=== PATIENT | female | born 1995 | race Caucasian/White ===

== ENCOUNTER → 2018-05-07 15:24 | Outpatient (REF) | payer SELFPAY | LOC: OM 15:24 | PROVIDERS: PCP Nurse Practitioner; Visit Provider Nurse Practitioner Family | DX: Z23 Encounter for immunization (principal) ==

== ENCOUNTER → 2018-05-21 15:32 | Outpatient (REF) | payer OTHER, MEDICAID, SELFPAY | LOC: LBN 15:32 | PROVIDERS: PCP Nurse Practitioner; Visit Provider Nurse Practitioner | DX: J02.9 Acute pharyngitis, unspecified (principal) | CPT/HCPCS: 87070 ==

== ENCOUNTER 2018-06-17 09:54 | Outpatient (REF) | payer OTHER, MEDICAID, SELFPAY | END 2018-06-17 10:14 | LOC: LBN 09:54 | PROVIDERS: PCP Nurse Practitioner; Visit Provider Nurse Practitioner Women's Health | DX: R31.9 Hematuria, unspecified (principal) | CPT/HCPCS: 87086 ==

== ENCOUNTER 2018-08-22 01:38 | Emergency (ER) | payer OTHER, MEDICAID, SELFPAY ==
[2018-08-22 01:44] VITALS: BP 126/89; PULSE 144; RESP 18; TEMP 38; O2SAT 99
--- NOTE | 2018-08-22 01:57 | W.ED.GENAD ---
Discharge Plan Disposition Patient Disposition: HOME Condition: Good Discharge Details Chief Complaint: Headache Clinical Impression: Throbbing headache Primary Care Provider: Teri Gomez ED Provider: Sebastien Wood Home Meds and New Rx's Prescriptions: Continue albuterol sulfate 8.5 GM HFA aerosol inhaler 2 puff Inhalation Q4H PRN Qty: 1 RF: 1 fluticasone [Flovent HFA] 12 GM HFA aerosol inhaler 110 mcg Inhalation BID Qty: 1 RF: 1 norelgestromin-ethin.estradiol [Xulane] 1 EACH patch weekly 1 ea Transdermal weekly Qty: 9 RF: 4 Discharge Instructions Instructions: General Headache (ED) Additional Instructions: Rest over the weekend and stay hydrated. May use Tylenol or Motrin for residual headache. Low-grade fever here so may have mild viral illness. Do not think you have meningitis but if you develop worsening headache, neck pain/stiffness, persistent fever, neurologic changes please return to ED. Follow-up with primary care next week if continued problems with headaches. Referrals: Teri Gomez, PRINTED CIRCUIT BOARD DESIGNER [Primary Care Provider] - Medical Decision Making Patient with frontal pounding headache for the last 3 days. Gradually worse over time. Low-grade fever here but no real viral symptoms otherwise. Has no neck pain or meningeal signs. Is normal neurologically. She has no sinus tenderness and really has no nasal congestion. I do not think this is sinus headache. Seems more like migrainous in nature. Will place IV and give Toradol and Reglan and reevaluate. I am not concerned for meningitis or subarachnoid hemorrhage. test negative. Patient had IV placed received fluids and medications. On reevaluation her headache is essentially gone. The pounding sensations resolved. She feels much better. Heart rate is come down. She has known tachycardia at rest in the past. Patient be discharged home at this time. HPI General Mode of arrival: ambulatory. Date/Time Provider Initiated Documentation: 08/22/18 01:57. Limitations to Documentation: no limitations. Information obtained by: patient and old records reviewed. HPI Narrative: Patient presents to ED with complaint of frontal/retro-orbital pounding headache for the last 3 days. Position changes make the headache worse. There is mild photophobia. She has nausea but no vomiting. She has no real sinus symptoms. She had no fever, cough, sore throat, earache that she is aware of. She had headaches when she was younger but not recently. She has no neurologic symptoms otherwise. Related Data Home Medications Medication Instructions Recorded Confirmed albuterol sulfate 2 puff INHALATION Q4H PRN #1 12/21/13 08/22/18 inhaler fluticasone [Flovent HFA] 110 mcg INHALATION BID #1 inhaler 12/21/13 08/22/18 norelgestromin-ethin.estradiol 1 ea TRANSDERMAL weekly #9 patch 08/29/17 08/22/18 [Xulane] Previous Rx's Medication Instructions Recorded norelgestromin-ethin.estradiol 1 ea TRANSDERMAL weekly #9 patch 08/29/17 [Xulane] Allergies Allergy/AdvReac Type Severity Reaction Status Date / Time No Known Drug Allergies Allergy Unverified 08/22/18 01:51 General Stated Complaint: Headache DIANE: 3 Review of Systems Constitutional Denies chills, Denies fatigue, Denies fever(s), Reports headache(s), Denies malaise and Denies weakness Eyes Reports blurry vision (mild and intermittent left eye), Denies diplopia, Denies eye discharge, Denies loss of vision, Denies eye pain and Reports photophobia ENT Denies vertigo, Denies dizziness, Denies otalgia, Denies facial pain, Reports headache(s), Denies hoarseness, Denies nasal congestion, Denies nasal discharge, Denies neck pain, Denies sinus pain, Reports sinus pressure and Denies sore throat Cardiovascular Denies chest pain, Denies syncope, Reports rapid heart rate, Denies edema, Denies lightheadedness and Denies dyspnea Respiratory Denies chest congestion, Denies cough and Denies dyspnea Gastrointestinal Denies abdominal pain, Denies diarrhea, Reports nausea and Denies vomiting Musculoskeletal Denies abnormal gait, Denies back pain, Denies myalgias, Denies arthralgias, Denies neck pain, Denies numbness and Denies tingling Integumentary/Breasts Denies rash Neurologic Denies abnormal speech, Denies abnormal gait, Denies confusion, Denies vertigo, Denies dizziness, Denies syncope, Reports headache(s), Denies focal weakness, Denies loss of vision, Denies numbness, Denies sensory deficit, Denies tingling and Denies weakness Psychiatric Denies confusion Endocrine Denies fatigue PFSH Family History Mother No problems noted. Father No problems noted. Medical History Tachycardia with heart rate 121-140 beats per minute (Chronic) Exposure to chlamydia (~04/2016) HSV-1 (herpes simplex virus 1) infection Social History Smoking/Tobacco Use Status: Former Tobacco Use alcohol intake: former substance use type: does not use Surgical History S/P shoulder surgery (Inactive) section (03/12/17) Tonsillectomy and adenoidectomy (~2002) Female Reproductive History Menstrual control method: patch Exam Const General: cooperative, healthy appearing and uncomfortable Orientation: alert and oriented x3 HENMT Head: normal to inspection, normocephalic and atraumatic Ears: external ears normal and TM's normal bilaterally Face and sinus: normal facial exam and sinuses nontender Mouth: oropharynx normal and moist mucous membranes Throat: posterior oropharynx normal Eyes Conjunctivae: conjunctivae normal Pupils: PERRL EOM: EOM intact bilaterally Neck Neck: normal visual inspection, full ROM, no lymphadenopathy, no meningeal signs, trachea midline and supple Resp Effort & Inspection: normal respiratory effort Auscultation: clear to auscultation bilaterally Cardio Rate: tachycardic Rhythm: regular rhythm Heart Sounds: S1 normal and S2 normal Skin General skin exam: no rashes or lesions noted Neuro General: alert, oriented x3, gait normal, no focal motor deficits and CN's II-XI intact bilaterally Cognition: normal cognition Speech: speech normal Gait: normal gait Sensory Exam: no sensory deficits noted Extrem General: normal to inspection and no clubbing, cyanosis or edema Course Vital Signs Temperature 100.4 F H 08/22/18 01:44 Pulse 144 H 08/22/18 01:44 Respiratory Rate 18 08/22/18 01:44 Blood Pressure 126/89 08/22/18 01:44 Pulse Oximetry 99 08/22/18 01:44 Temperature 100.4 F H 08/22/18 01:44 Temperature Source Temporal Artery Scan 08/22/18 01:44 Pulse 144 H 08/22/18 01:44 Respiratory Rate 18 08/22/18 01:44 Respiratory Effort Non-Labored 08/22/18 01:48 Blood Pressure 126/89 08/22/18 01:44 Blood Pressure Position Sitting 08/22/18 01:44 Pulse Oximetry 99 08/22/18 01:44 Oxygen Delivery Method Room Air 08/22/18 01:44 Oxygen Flow Rate 0 08/22/18 01:44 Pain Level 6 08/22/18 01:48
--- NOTE | 2018-08-22 02:05 | ED.GENADUL_ITS ---
Discharge Plan Disposition Patient Disposition: HOME Condition: Good Discharge Details Chief Complaint: Headache Clinical Impression: Throbbing headache Primary Care Provider: Teri Gomez ED Provider: Sebastien Wood Home Meds and New Rx's Prescriptions: Continue albuterol sulfate 8.5 GM HFA aerosol inhaler 2 puff Inhalation Q4H PRN Qty: 1 RF: 1 fluticasone [Flovent HFA] 12 GM HFA aerosol inhaler 110 mcg Inhalation BID Qty: 1 RF: 1 norelgestromin-ethin.estradiol [Xulane] 1 EACH patch weekly 1 ea Transdermal weekly Qty: 9 RF: 4 Discharge Instructions Instructions: General Headache (ED) Additional Instructions: Rest over the weekend and stay hydrated. May use Tylenol or Motrin for residual headache. Low-grade fever here so may have mild viral illness. Do not think you have meningitis but if you develop worsening headache, neck pain/ stiffness, persistent fever, neurologic changes please return to ED. Follow-up with primary care next week if continued problems with headaches. Referrals: Teri Gomez, TERRAZZO HELPER [Primary Care Provider] - Medical Decision Making Patient with frontal pounding headache for the last 3 days. Gradually worse over time. Low-grade fever here but no real viral symptoms otherwise. Has no neck pain or meningeal signs. Is normal neurologically. She has no sinus tenderness and really has no nasal congestion. I do not think this is sinus headache. Seems more like migrainous in nature. Will place IV and give Toradol and Reglan and reevaluate. I am not concerned for meningitis or subarachnoid hemorrhage. test negative. Patient had IV placed received fluids and medications. On reevaluation her headache is essentially gone. The pounding sensations resolved. She feels much better. Heart rate is come down. She has known tachycardia at rest in the past. Patient be discharged home at this time. HPI General Mode of arrival: ambulatory . Date/Time Provider Initiated Documentation: 08/22/18 01:57 . Limitations to Documentation: no limitations . Information obtained by: patient and old records reviewed . HPI Narrative: Patient presents to ED with complaint of frontal/retro-orbital pounding headache for the last 3 days. Position changes make the headache worse. There is mild photophobia. She has nausea but no vomiting. She has no real sinus symptoms. She had no fever, cough, sore throat, earache that she is aware of. She had headaches when she was younger but not recently. She has no neurologic symptoms otherwise. Related Data Home Medications Medication Instructions Recorded Confirmed albuterol sulfate 2 puff INHALATION Q4H PRN #1 12/21/13 08/22/18 inhaler fluticasone [Flovent HFA] 110 mcg INHALATION BID #1 inhaler 12/21/13 08/22/18 norelgestromin-ethin.estradiol 1 ea TRANSDERMAL weekly #9 patch 08/29/17 [Xulane] Previous Rx's Medication Instructions Recorded norelgestromin-ethin.estradiol 1 ea TRANSDERMAL weekly #9 patch 08/29/17 [Xulane] Allergies Allergy/AdvReac Type Severity Reaction Status Date / Time No Known Drug Allergies Allergy Unverified 08/22/18 01:51 General Stated Complaint: Headache DIANE: 3 Review of Systems Constitutional Denies chills, Denies fatigue, Denies fever(s), Reports headache(s), Denies malaise and Denies weakness Eyes Reports blurry vision (mild and intermittent left eye), Denies diplopia, Denies eye discharge, Denies loss of vision, Denies eye pain and Reports photophobia ENT Denies vertigo, Denies dizziness, Denies otalgia, Denies facial pain, Reports headache(s), Denies hoarseness, Denies nasal congestion, Denies nasal discharge , Denies neck pain, Denies sinus pain, Reports sinus pressure and Denies sore throat Cardiovascular Denies chest pain, Denies syncope, Reports rapid heart rate, Denies edema, Denies lightheadedness and Denies dyspnea Respiratory Denies chest congestion, Denies cough and Denies dyspnea Gastrointestinal Denies abdominal pain, Denies diarrhea, Reports nausea and Denies vomiting Musculoskeletal Denies abnormal gait, Denies back pain, Denies myalgias, Denies arthralgias, Denies neck pain, Denies numbness and Denies tingling Integumentary/Breasts Denies rash Neurologic Denies abnormal speech, Denies abnormal gait, Denies confusion, Denies vertigo, Denies dizziness, Denies syncope, Reports headache(s), Denies focal weakness, Denies loss of vision, Denies numbness, Denies sensory deficit, Denies tingling and Denies weakness Psychiatric Denies confusion Endocrine Denies fatigue PFSH Family History Mother No problems noted. Father No problems noted. Medical History Tachycardia with heart rate 121-140 beats per minute (Chronic) Exposure to chlamydia (~04/2016) HSV-1 (herpes simplex virus 1) infection Social History Smoking/Tobacco Use Status: Former Tobacco Use alcohol intake: former substance use type: does not use Surgical History S/P shoulder surgery (Inactive) section (03/12/17) Tonsillectomy and adenoidectomy (~2002) Female Reproductive History Menstrual control method: patch Exam Const General: cooperative, healthy appearing and uncomfortable Orientation: alert and oriented x3 HENMT Head: normal to inspection, normocephalic and atraumatic Ears: external ears normal and TM's normal bilaterally Face and sinus: normal facial exam and sinuses nontender Mouth: oropharynx normal and moist mucous membranes Throat: posterior oropharynx normal Eyes Conjunctivae: conjunctivae normal Pupils: PERRL EOM: EOM intact bilaterally Neck Neck: normal visual inspection, full ROM, no lymphadenopathy, no meningeal signs , trachea midline and supple Resp Effort & Inspection: normal respiratory effort Auscultation: clear to auscultation bilaterally Cardio Rate: tachycardic Rhythm: regular rhythm Heart Sounds: S1 normal and S2 normal Skin General skin exam: no rashes or lesions noted Neuro General: alert, oriented x3, gait normal, no focal motor deficits and CN's II- XI intact bilaterally Cognition: normal cognition Speech: speech normal Gait: normal gait Sensory Exam: no sensory deficits noted Extrem General: normal to inspection and no clubbing, cyanosis or edema Course Vital Signs Temperature 100.4 F H 08/22/18 01:44 Pulse 144 H 08/22/18 01:44 Respiratory Rate 18 08/22/18 01:44 Blood Pressure 126/89 08/22/18 01:44 Pulse Oximetry 99 08/22/18 01:44 Temperature 100.4 F H 08/22/18 01:44 Temperature Source Temporal Artery Scan 08/22/18 01:44 Pulse 144 H 08/22/18 01:44 Respiratory Rate 18 08/22/18 01:44 Respiratory Effort Non-Labored 08/22/18 01:48 Blood Pressure 126/89 08/22/18 01:44 Blood Pressure Position Sitting 08/22/18 01:44 Pulse Oximetry 99 08/22/18 01:44 Oxygen Delivery Method Room Air 08/22/18 01:44 Oxygen Flow Rate 0 08/22/18 01:44 Pain Level 6 08/22/18 01:48
[2018-08-22] MEDS: Lactated Ringers 1,000 ML 1000 ML IV (02:31)
[2018-08-22] MEDS: Ketorolac 15 MG/ML VIAL IVP (02:31)
[2018-08-22] MEDS: Metoclopramide 10 MG/2 ML VIAL IVP (02:32)
[2018-08-22 02:47] VITALS: BP 121/67; PULSE 106; RESP 14; TEMP 37.6; O2SAT 98
[2018-08-22 03:16] VITALS: BP 121/67; PULSE 106; RESP 14; TEMP 37.6; O2SAT 98
== END 2018-08-22 03:18 | disposition home or self-care (01) ==
LOC: ER 03:17
PROVIDERS: Emergency Provider Emergency Medicine; PCP Nurse Practitioner
DX: R51 Headache (principal)
CPT/HCPCS: 81025; 96361; 96374; 96375; 99284; J1885; J2765

== ENCOUNTER 2019-02-04 11:02 | Emergency (ER) | payer OTHER, MEDICAID, SELFPAY ==
[2019-02-04] VITALS (36 sets, daily range): BP systolic 102–119; BP diastolic 50–70; PULSE 113–142; RESP 13–52; TEMP 37.2; O2SAT 98–100
--- NOTE | 2019-02-04 11:22 | DI.RAD_ITS ---
SYMPTOM/DIAGNOSIS: CHEST PAIN, TACHYCARDIA PA AND LATERAL CHEST: The heart is normal in size. The lungs are clear. The mediastinal structures and pleura appear intact. CONCLUSION: Normal chest.
--- NOTE | 2019-02-04 11:26 | ED.GENADUL_ITS ---
Discharge Plan Disposition Patient Disposition: HOME Discharge Details Chief Complaint: Chest Pain Clinical Impression: Tachycardia Primary Care Provider: Teri Gomez ED Provider: Hollis Flores Home Meds and New Rx's Prescriptions: New metoprolol succinate 25 mg tablet extended release 24 hr 25 mg PO DAILY Qty: 30 RF: 0 Continued albuterol sulfate 8.5 GM HFA aerosol inhaler 2 puff Inhalation Q4H PRN Qty: 1 RF: 1 Flovent HFA 12 GM HFA aerosol inhaler 110 mcg Inhalation BID Qty: 1 RF: 1 Discharge Instructions Additional Instructions: Start metorprolol. Take 12.5mg (1/2 tablet) for 4 days and then continue 25mg daily as prescribed. Please avoid stimulants including caffeine. Please follow-up with cardiology. Call for an appointment to be reassessed in 2 weeks. Return to the ER immediately for any worsening or new concerning symptoms. Stand Alone Forms: Work Release Referrals: Teri Gomez, ASSISTANT PROFESSOR [employer] [Primary Care Provider] - Discharge Data Discharge Date/Time-TO BE ENTERED AT DEPARTURE: 02/04/19 15:10 Medical Decision Making <Maureen Pfeiffer DO - Last Filed: 02/05/19 08:22> Please see Dr. Hollis Flores's note for presentation, exam, and plan. Note was created by me initially but I did not evaluate or participate in the care of this patient. Care was transitioned to Dr. Flores during medical surge. <Hollis Flores MD - Last Filed: 02/04/19 15:00> 12:28 -- ED medical surge called due to volume and acuity. I reponded to ED to assist in care of patients. Ms. Potter is a 23yo with history of baseline elevated HR, anxiety and IBS here today with tachycardia elevated from baseline and as high as 170 earlier today. She has had associated symptoms of chest discomfort, shortness of breath, and lightheadedness with her tachycardia today. Currently tachycardic and normotensive. Saturating well with no active CP. ECG reviewed and interpreted by me: sinus tach 147 bpm, NC 106, nonspecific ST depression subtle laterally. No risk factors for ACS. Will check trop. Old ecg not immediately available for comparison. Consider PE. Low risk by wells. Ddimer sent. Consider other etiologies including electrolyte abnormality and hyperthyroidism. Patient mildly dehydrated and with recent loose stool - will give IVF bolus. -- Labs reviewed and mild hypokalemia noted at 3.3. Will give kdur 40meq. -- Labs reviewed including initial trop and ddimer. Neg. Patient reassessed and remains stable - tachycardia improved. No CP. Will check repeat ecg and delta trop. -- Delta trop neg. Repeat ecg reviewed and interpreted by me: sinus tach 119, improved from prior with no depressions. -- Patient reassessed: stable, feels better, no CP, tachycardia improved to baseline, normotensive. -- I called and spoke with Dr. Burgess (sole conditioner cardiology). I reviewed ED presentation and course. He reviewed past medical record from cardiology and prior cardiology testing. He recommended initiating treatment with metoprolol 12.5mg x 4 days and then continuing 25mg daily. He recommended outpatient follow-up in 2 weeks. HPI <Maureen Pfeiffer DO - Last Filed: 02/05/19 08:22> General Date/Time Provider Initiated Documentation: 02/04/19 11:10 . Related Data Home Medications Medication Instructions Recorded Confirmed Flovent HFA 110 mcg INHALATION BID #1 inhaler 12/21/13 02/04/19 albuterol sulfate 2 puff INHALATION Q4H PRN #1 12/21/13 02/04/19 inhaler metoprolol succinate 25 mg PO DAILY #30 tab 02/04/19 Previous Rx's Medication Instructions Recorded metoprolol succinate 25 mg PO DAILY #30 tab 02/04/19 Allergies Allergy/AdvReac Type Severity Reaction Status Date / Time No Known Drug Allergies Allergy Unverified 08/25/18 12:54 General Stated Complaint: Chest Pain DIANE: 2 <Hollis Flores MD - Last Filed: 02/04/19 15:00> General Mode of arrival: ambulatory . Limitations to Documentation: no limitations . Information obtained by: patient . HPI Narrative: 23yo f with history of baseline tachycardia, IBS, anxiety, here with chief complaint of elevated HR. Patient notes that baseline HR is 105-110's for years. She has been evaluated by cardiology and had significant diangostic testing that has not revealed cause and thought to be benign. She notes that today she woke up around 6am and noted her HR to be faster than usual. This has persisted all morning and wax and waned. It has been severe at times. Now improved. 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 She has had associated intermittent mild, sharp left parasternal chest discomfort at times and associated with elevated HR. Also some mild SOB and lightheadedness. Of note, she did have episode of loose stool last night and again this AM. No abdominal pain. No vomiting. No fever. General DIANE: 2 <Hollis Flores MD - Last Filed: 02/04/19 15:00> Review of Systems All systems reviewed & are unremarkable except as noted in HPI and below PFSH <Maureen Pfeiffer DO - Last Filed: 02/05/19 08:22> Medical History Tachycardia with heart rate 121-140 beats per minute (Chronic) Exposure to chlamydia (~04/2016) HSV-1 (herpes simplex virus 1) infection Surgical History S/P shoulder surgery (Inactive) section (03/12/17) Tonsillectomy and adenoidectomy (~2002) Family History Mother No problems noted. Father No problems noted. Social History Smoking/Tobacco Use Status: Former Tobacco Use Alcohol Intake: current Alcohol Intake frequency: a few times a month Drug use: Never Substance use type: does not use Do you feel safe at home: Yes Do you feel safe in your relationship?: Yes Female Reproductive History Menstrual control method: patch History History 1 Para Hx # Term Pregnancies 1 Multiple births Hx # Pregnancies Ectopic pregnancies AB induced Hx Number of Living Children AB spontaneous <Hollis Flores MD - Last Filed: 02/04/19 15:00> Const General: cooperative, anxious and not ill appearing Orientation: alert and awake HENMT Head: normocephalic Mouth: mucous membranes dry Throat: posterior oropharynx normal Eyes Conjunctivae: normal conjunctivae Sclera: normal sclerae Neck Neck: trachea midline and supple Resp Auscultation: clear to auscultation bilaterally, no rales, no rhonchi and no wheezes Cardio Jugular venous pressure: no JVD Rate: tachycardic Rhythm: regular rhythm GI Inspection: non-distended Palpation: soft, not firm, no guarding, no masses, not rigid and tender in the LUQ (mild); with no rebound tenderness Skin General skin exam: no rashes or lesions noted Neuro General: alert, awake, oriented x3 and tone normal Extrem General: no calf tenderness and no edema Psych Appearance: grossly normal Mental Status: mental status grossly normal Speech and Movement: speech and movement normal Course <Maureen Pfeiffer, DO - Last Filed: 02/05/19 08:22> Vital Signs Temperature 99.0 F 02/04/19 11:07 Pulse 142 H 02/04/19 11:07 Respiratory Rate 16 02/04/19 11:07 Blood Pressure 117/70 02/04/19 11:07 Pulse Oximetry 100 02/04/19 11:07 Temperature 99.0 F 02/04/19 11:07 Temperature Source Skin 02/04/19 11:07 Pulse 142 H 02/04/19 11:07 Respiratory Rate 16 02/04/19 11:07 Blood Pressure 117/70 02/04/19 11:07 Blood Pressure Position Sitting 02/04/19 11:07 Pulse Oximetry 100 02/04/19 11:07 Oxygen Delivery Method Room Air 02/04/19 11:07 Oxygen Flow Rate 0 02/04/19 11:07 Pain Level 5 02/04/19 11:07
[2019-02-04 11:58] LABS: Abs Immature Grans 0.02 k/cumm (0.0-0.09); Absolute Basophil Count 0.02 k/cumm (0.0-0.2); Absolute Eosinophil Count 0.05 k/cumm (0.0-0.7); Absolute Lymphocyte Count 1.16 k/cumm (1.2-3.4); Absolute Monocyte Count 0.35 k/cumm (0.11-0.7); Absolute Neutrophil Count 6.84 k/cumm (1.2-6.7); Basophils % 0.2; Eosinophils % 0.6; HCT 42.1 % (36.0-46.0); HGB 14.2 g/dL (12.0-15.5); Immature Grans % 0.2; Lymphocytes % 13.7; Mean Corp. HGB Concentration 33.7 g/dL (32.0-36.0); Mean Corpuscular Volume 91.9 fL (80-95); Mean Platelet Volume 11.9 fL (8.0-11.0); Monocytes % 4.1; Neutrophils % 81.2; Platelet Count 256 x1000/uL (130-400); RBC 4.58 m/cumm (4.00-5.20); RBC Distribution Width 12.7 % (11.7-14.6); White Blood Cell Count 8.44 k/cumm (4.4-10.8)
[2019-02-04 12:21] LABS: ALT 20 U/L (12-78); AST 11 U/L (15-37); Albumin 3.7 g/dL (3.4-5.0); Alkaline Phosphatase 47 U/L (46-116); Anion Gap 11.1 mmol/L (3-11); BUN 9 mg/dL (7-18); Bilirubin, Total 2.5 mg/dL (0.2-1.0); CO2 23.9 mmol/L (21.0-32.0); CREATININE 0.57 mg/dL (0.55-1.02); Calcium 8.5 mg/dL (8.5-10.1); Chloride 102 mmol/L (98-107); Glucose 95 mg/dL (70-100); Magnesium 1.9 mg/dL (1.8-2.4); Potassium 3.3 mmol/L (3.5-5.1); Sodium 137 mmol/L (136-145); Total Protein 7.7 g/dL (6.4-8.2)
[2019-02-04 12:22] LABS: Troponin I < 0.02 ng/mL (0.00-0.06)
[2019-02-04] MEDS: Potassium Chloride 20 MEQ TABCR 40 MEQ PO (12:52)
[2019-02-04 13:18] LABS: TSH (W/Ref FT4) 3.11 uIU/mL (0.358-3.74)
[2019-02-04 13:24] LABS: D-Dimer 239 ng/mlFEU (<500)
[2019-02-04 14:55] LABS: Troponin I < 0.02 ng/mL (0.00-0.06)
[2019-02-04] MEDS: Metoprolol CR 25 MG TABCR 12.5 MG PO (15:07)
== END 2019-02-04 15:10 | disposition home or self-care (01) ==
PROVIDERS: Physician Assistant; Emergency Provider Student in an Organized Health Care Education/Training Program; PCP Nurse Practitioner
DX: R07.9 Chest pain, unspecified (principal); R00.0 Tachycardia, unspecified; F41.9 Anxiety disorder, unspecified; R06.02 Shortness of breath; R42 Dizziness and giddiness; E87.6 Hypokalemia; E86.0 Dehydration
CPT/HCPCS: 36415; 80053; 81025; 93005; 99285; 71046; 83735; 84443; 84484; 85025; 85379; 93010

== ENCOUNTER 2019-02-04 22:43 | Emergency (ER) | payer OTHER, MEDICAID, SELFPAY ==
[2019-02-04 22:51] VITALS: BP 110/67; PULSE 155; RESP 24; TEMP 37.1; O2SAT 98
[2019-02-04] MEDS: Normal Saline 1,000 ML 1000 ML IV (23:00)
--- NOTE | 2019-02-04 23:06 | W.ED.GENAD ---
Discharge Plan Disposition Patient Disposition: HOME Condition: Good Discharge Details Chief Complaint: Recheck Clinical Impression: Tachycardia Primary Care Provider: Teri Gomez ED Provider: Sebastien Wood Meds and New Rx's Prescriptions: Continued albuterol sulfate 8.5 GM HFA aerosol inhaler 2 puff Inhalation Q4H PRN Qty: 1 RF: 1 Flovent HFA 12 GM HFA aerosol inhaler 110 mcg Inhalation BID Qty: 1 RF: 1 metoprolol succinate 25 mg tablet extended release 24 hr 25 mg PO DAILY Qty: 30 RF: 0 Discharge Instructions Additional Instructions: Take metoprolol as previously prescribed. Avoid stimulants. Follow-up with primary care next week. Follow-up with cardiology in 2 weeks. Return to ED for prolonged recurrent symptoms, new or worsening pain, increasing shortness of breath. Referrals: [facility] [Provider Group] Teri Gomez, [employer] [Primary Care Provider] - Medical Decision Making Patient returns with recurrent tachycardia. Initially afebrile but on repeat check had low-grade fever 100.6. Vomited here but denies being ill previously. She denies having fever, cough, vomiting or diarrhea previously. She has developed some abdominal pain. Continues to complain of some chest pain. D-dimer was negative. However she is on estrogen-based control and tachycardic and now mildly febrile without obvious source. I am going to get a CTA of the chest for PE and carried down through the abdomen as she is complaining of abdominal pain but has a benign abdomen. Will check a urinalysis. I do not think we need to repeat her labs. I do not think this is cardiac in nature at all. She does not need repeat troponins. We will give her fluids, Zofran, 2.5 of Lopressor IV. CTA of the chest is negative. CT of the abdomen pelvis is negative. Urinalysis negative. Patient's heart rate is come down to her baseline which is typically 100 - 120. She feels better. No sign of infection. No PE. Will discharge patient with instructions to start metoprolol as previously instructed and follow-up with cardiology in 2 weeks. Follow-up with primary care next week. Return to ED if problems. Medical Records Medical records reviewed: Yes I reviewed the patient's medical records. ECG Data Attestation: I personally reviewed and interpreted this ECG (s) as follows: Interpretation: Sinus tachycardia 132. Normal intervals and axis. No acute ST elevation or depression. HPI General Mode of arrival: ambulatory. Date/Time Provider Initiated Documentation: 02/04/19 22:51. Limitations to Documentation: no limitations. Information obtained by: patient and old records reviewed. HPI Narrative: Patient presents to ED with complaints of recurrent rapid heart rate, dizziness, nausea. She is feeling short of breath and tingly. She was seen here earlier with work-up for sinus tachycardia that included 2 troponins, d-dimer, TSH all of which were fine. Electrolytes were fine. She was given metoprolol and sent home. She returns with recurrent symptoms, feels worse this time. She is now feeling some abdominal discomfort in addition to some right-sided chest pain. She had left-sided chest pain previously. Related Data Home Medications Medication Instructions Recorded Confirmed Flovent HFA 110 mcg INHALATION BID #1 inhaler 12/21/13 02/04/19 albuterol sulfate 2 puff INHALATION Q4H PRN #1 12/21/13 02/04/19 inhaler metoprolol succinate 25 mg PO DAILY #30 tab 02/04/19 Previous Rx's Medication Instructions Recorded metoprolol succinate 25 mg PO DAILY #30 tab 02/04/19 Allergies Allergy/AdvReac Type Severity Reaction Status Date / Time No Known Drug Allergies Allergy Unverified 08/25/18 12:54 General Stated Complaint: Recheck DIANE: 3 Review of Systems Review of Systems 07/12 Review of Systems completed and is negative except as stated above in HPI (Systems reviewed: Const, Eyes, ENT, Resp, CV, GI, , MSK, Skin, Neuro) [facility] Medical History Tachycardia with heart rate 121-140 beats per minute (Chronic) Exposure to chlamydia (~04/2016) HSV-1 (herpes simplex virus 1) infection Surgical History S/P shoulder surgery (Inactive) section (03/12/17) Tonsillectomy and adenoidectomy (~2002) Social History Smoking/Tobacco Use Status: Former Tobacco Use Alcohol Intake: current Alcohol Intake frequency: a few times a month Drug use: Never Substance use type: does not use Do you feel safe at home: Yes Do you feel safe in your relationship?: Yes Female Reproductive History Menstrual control method: patch History History 1 Para Hx # Term Pregnancies 1 Multiple births Hx # Pregnancies Ectopic pregnancies AB induced Hx Number of Living Children AB spontaneous Exam Narrative Exam Narrative: Vitals: Tachycardic but afebrile. Const: WDWN female in NAD. HEENT: NC/AT. Normal facial exam. Eyes: Normal conjunctiva and sclera. Neck: Supple. Trachea midline. Lungs: Normal respiratory effort. Lungs are clear. Cor: RRR without murmur/gallop. Good radial pulses. Tachycardic. GI: Soft. NT/ND. No guarding or rebound. Neuro: A+O x 3. CN grossly in tact. Good strength and no focal deficit. Ext: No C/C/E. No deformity or tenderness. No calf tenderness. Skin: Warm and dry without rash. Course Vital Signs Temperature 98.8 F 02/04/19 22:51 Pulse 155 H 02/04/19 22:51 Respiratory Rate 24 02/04/19 22:51 Blood Pressure 110/67 02/04/19 22:51 Pulse Oximetry 98 02/04/19 22:51 Temperature 98.8 F 02/04/19 22:51 Temperature Source Temporal Artery Scan 02/04/19 22:51 Pulse 155 H 02/04/19 22:51 Respiratory Rate 24 02/04/19 22:51 Respiratory Effort 02/04/19 22:51 Blood Pressure 110/67 02/04/19 22:51 Pulse Oximetry 98 02/04/19 22:51 Oxygen Delivery Method Room Air 02/04/19 22:51 Oxygen Flow Rate 0 02/04/19 22:51 Pain Level 5 02/04/19 22:51
[2019-02-04 23:42] VITALS: BP 116/66; PULSE 133
[2019-02-04] MEDS: Metoprolol 5 MG/5 ML VIAL 2.5 MG IVP (23:42)
[2019-02-04 23:43] VITALS: PULSE 120; RESP 19; O2SAT 100
[2019-02-05 00:01] VITALS: PULSE 134; RESP 24
--- NOTE | 2019-02-05 00:12 | DI.CT_ITS ---
SYMPTOM/DIAGNOSIS: TACHYCARDIA/SOB, FEVER/ABD PAIN CT ANGIOGRAPHY CHEST: 02/05/19 CT angiography was performed with multi slice acquisition and multi planar and 3D reconstruction. CT angiography of the chest was performed with a bolus infusion of 100 cc Omnipaque 350. The lungs are clear. No pleural effusion. Tracheobronchial tree appears intact. No mediastinal or hilar adenopathy. No evidence of pulmonary embolic disease. No thoracic aortic aneurysm or dissection. CONCLUSION: Negative CTA chest. ABDOMINAL AND PELVIC CT: 02/05 CT examination of the abdomen and pelvis was performed following the chest CT angiogram. The liver, spleen, pancreas, gallbladder and bile ducts are normal in appearance. Abdominal aorta is of normal diameter. No major vascular abnormality is seen. No significant abdominal wall hernia is seen. No abdominal or pelvic adenopathy. Adrenals and kidneys appear normal. The appendix is normal in appearance. No evidence of diverticulitis or bowel obstruction. ANIMAL CHIROPRACTOR structures are unremarkable. CONCLUSION: Negative abdominal and pelvic CT
[2019-02-05] MEDS: Omnipaque 350 MG/ML 100 ML BTL IJ (00:49)
--- NOTE | 2019-02-05 01:44 | DI.VRAD_ITS ---
EXAM: CT Angiography Chest With Contrast EXAM DATE/TIME: 02/05/2019 12:14 AM CLINICAL HISTORY: 23 years old, female; Signs and symptoms; Abdominal tenderness and fever; Shortness of breath and other: Tachy; Prior surgery; Surgery date: 1-6 months; Surgery type: ; Patient HX: Fever, abd pain, SOB TECHNIQUE: Imaging protocol: Axial computed tomographic angiography images of the chest with intravenous contrast using CT angiography protocol. Coronal and sagittal reformatted images were created and reviewed. 3D rendering: MIP reconstructed images were created and reviewed. Radiation optimization: All CT scans at this facility use at least one of these dose optimization techniques: automated exposure control; mA and/or kV adjustment per patient size (includes targeted exams where dose is matched to clinical indication); or iterative reconstruction. Contrast material: OMNIPAQUE 350; Contrast volume: 82 ml; Contrast route: IV; COMPARISON: CR XR CHEST 2V PA LATERAL 02/04/2019 12:00 PM FINDINGS: Pulmonary arteries: No acute pulmonary embolus. Aorta: Normal. No aortic aneurysm. No aortic dissection. Lungs: Normal. No consolidation. No masses. Pleural space: Normal. No pneumothorax. No pleural effusion. Heart: Normal. No cardiomegaly. No pericardial effusion. Lymph nodes: Unremarkable. No enlarged lymph nodes. Bones/joints: Unremarkable. No acute fracture. Soft tissues: Unremarkable. IMPRESSION: No acute pulmonary embolus. EXAM: CT Abdomen and Pelvis With Contrast EXAM DATE/TIME: 02/05/2019 12:14 AM CLINICAL HISTORY: 23 years old, female; Signs and symptoms; Abdominal tenderness and fever; Shortness of breath and other: Tachy; Prior surgery; Surgery date: 1-6 months; Surgery type: ; Patient HX: Fever, abd pain, SOB TECHNIQUE: Imaging protocol: Axial computed tomography images of the abdomen and pelvis with intravenous contrast. Coronal and sagittal reformatted images were created and reviewed. Radiation optimization: All CT scans at this facility use at least one of these dose optimization techniques: automated exposure control; mA and/or kV adjustment per patient size (includes targeted exams where dose is matched to clinical indication); or iterative reconstruction. Contrast material: OMNIPAQUE 350; Contrast volume: 82 ml; Contrast route: IV; COMPARISON: CR XR CHEST 2V PA LATERAL 02/04/2019 12:00 PM FINDINGS: ABDOMEN: Liver: Normal. No mass. Gallbladder and bile ducts: Normal. No calcified stones. No ductal dilation. Pancreas: Normal. No ductal dilation. Spleen: Normal. No splenomegaly. Adrenals: Normal. No mass. Kidneys and ureters: Normal. No hydronephrosis. Stomach and bowel: Normal. No obstruction. No mucosal thickening. Appendix: No evidence of appendicitis. PELVIS: Bladder: Unremarkable as visualized. Reproductive: Unremarkable as visualized. ABDOMEN and PELVIS: Intraperitoneal space: Normal. No free air. No significant fluid collection. Bones/joints: No acute fracture. No dislocation. Soft tissues: Unremarkable. Vasculature: Normal. No abdominal aortic aneurysm. Lymph nodes: Normal. No enlarged lymph nodes. IMPRESSION: No evidence of acute abdominopelvic pathology. Dictated and Authenticated by: Kwesi Mauricio MD. Ordering:CORTNEY Crowe MD
[2019-02-05 02:07] LABS: Bilirubin Negative (Negative); Blood Trace-intact (Negative); Clarity Clear; Glucose Negative (Negative); Ketones Negative (Negative); Leukocyte Esterase Negative (Negative); Nitrite Negative (Negative); Urobilinogen 0.2 EU/dL (Up TO 0.2)
[2019-02-05 02:17] LABS: Bacteria Negative HPF (Negative); C & S Indicated? No; Casts Negative LPF (Negative); Crystals Negative HPF (Negative); Epithelial Cells Negative HPF (Negative); Mucus Negative (Negative); Other Cells Negative (Negative); RBC 0-2 (0-2); WBC 0-2 HPF (0-5)
[2019-02-05 02:41] VITALS: O2SAT 99
[2019-02-05 02:42] VITALS: BP 105/55; PULSE 104; O2SAT 97
[2019-02-05 03:00] VITALS: BP 105/55; PULSE 105; RESP 16; O2SAT 97
--- NOTE | 2019-02-05 08:05 | PDOC.ERCMPRO ---
Care Management Progress Note 02/05-Dr. Patience Flores requested assistance with a cardiology f/u within the next two weeks for tachycardia, symptomatic. Dr. Flores has spoken to cardiology and they want to reassess her within this time frame after starting a beta anthony. Referral faxed to [facility] this am.
== END 2019-02-05 02:57 | disposition home or self-care (01) ==
PROVIDERS: Emergency Provider Emergency Medicine; PCP Nurse Practitioner
DX: R00.0 Tachycardia, unspecified (principal); R50.9 Fever, unspecified; R11.2 Nausea with vomiting, unspecified; R20.2 Paresthesia of skin
CPT/HCPCS: 36415; 71275; 74177; 93005; 96361; 96374; 96375; 99285; 81003; 81015; 93010; J3490

== ENCOUNTER 2019-05-26 13:19 | Outpatient (CLI) | payer OTHER, MEDICAID, SELFPAY ==
[2019-05-26 14:37] LABS: HCG Quant, Pregnancy < 1 mIU/mL (1-3)
== END 2019-05-26 13:39 ==
PROVIDERS: PCP Nurse Practitioner; Visit Provider Nurse Practitioner Women's Health
DX: N91.2 Amenorrhea, unspecified (principal); Z32.02 Encounter for pregnancy test, result negative
CPT/HCPCS: 36415; 84702

== ENCOUNTER 2019-10-28 06:50 | Emergency (ER) | payer OTHER, MEDICAID, SELFPAY ==
[2019-10-28] VITALS (67 sets, daily range): BP systolic 109–126; BP diastolic 58–86; PULSE 77–129; RESP 12–33; TEMP 36.8; O2SAT 96–100
--- NOTE | 2019-10-28 07:03 | ED.GENADUL_ITS ---
Discharge Plan Disposition Patient Disposition: HOME Discharge Details Chief Complaint: SOB Clinical Impression: Chest pain Primary Care Provider: Teri Gomez ED Provider: Hollis Flores Home Meds and New Rx's Prescriptions: Continued fludrocortisone 0.1 mg tablet 0.1 mg PO DAILY RF: 0 Xulane 150-35 mcg/24 hr patch weekly 1 patch TD QWEEK Qty: 3 RF: 3 Discharge Instructions Instructions: Chest Pain (ED), Hypokalemia (ED), Hypocalcemia (ED) Additional Instructions: Your potassium and calcium levels were low today. Please see discharge instruction sheets on these conditions. Please be sure to follow-up with your primary care physician this week for repeat testing of your electrolytes. Should the levels remain low, you may need additional treatment. Please contact your primary care physician to arrange follow-up. Call today. Return to the ER for any worsening or new concerning symptoms. Referrals: Teri Gomez, PHYSICAL THERAPY INSTRUCTOR [Primary Care Provider] - Discharge Data Discharge Date/Time-TO BE ENTERED AT DEPARTURE: 10/28/19 09:22 Medical Decision Making <Sebastien Wood MD - Last Filed: 10/28/19 20:34> Patient with resolving GI symptoms now presenting with pleuritic chest pain or shortness of breath. She is not short of breath at rest but feels short of breath with exertion. Pain has been ongoing since last night. She has had previous cardiac work-up because of palpitations and tachycardia. This was felt to be POTS and she is on Florinef to try to help with this. Her EKG today shows a sinus tachycardia but otherwise normal. I am not overly concerned for cardiac issue. Also doubt esophageal rupture. Also low suspicion for PE but given her baseline tachycardia difficult to screen her out. She does have estrogen patch. She does feel short of breath with exertion. We discussed options and are in agreement that we will just get CTA and rule out PE definitively. She declines anything for pain currently. She is given Zofran for nausea. She signed over to Dr. Hollis Flores oncoming physician. ECG Data Attestation: I personally reviewed and interpreted this ECG (s) as follows: Interpretation: Sinus tachycardia at a rate of 110. Normal axis and intervals. Normal ST segments. <Hollis Flores MD - Last Filed: 10/28/19 21:39> Care signed out by Dr. Wood with plan to follow-up on CT imaging and labs. CT of the chest was reviewed and interpreted by Dr. Dickens who noted negative. Labs reviewed and mild hypokalemia and hypocalcemia noted. I will give a dose of calcium and potassium here. Patient will be instructed to follow-up with her primary care for repeat electrolyte testing. ECG was noted by Dr. Wood to be nondiagnostic with no concerns. Troponin is negative. Plan for discharge with outpatient follow-up. Disposition decision was made weighing the risks and benefits of hospitalization versus outpatient treatment, the risk for further decompensation, and the patient's wishes. The patient was stable and requested discharge. Prior to discharge, my usual and customary return precautions were reviewed with the patient - this included follow-up instructions and reason to return to the emergency department if condition worsens, does not improve as expected, or other new concerns arise. HPI <eSbastien Wood MD - Last Filed: 10/28/19 20:34> General Mode of arrival: ambulatory . Date/Time Provider Initiated Documentation: 10/28/19 07:00 . Limitations to Documentation: no limitations . Information obtained by: patient, RN notes reviewed and old records reviewed . HPI Narrative: Patient presents to the ED with complaint of chest pain and shortness of breath. She has been ill with nausea, vomiting and diarrhea for the last 3 days. She has had some abdominal discomfort but nothing extreme. The nausea and vomiting seems to be getting better yesterday but then last night developed central chest pain that she describes as sharp and worse with deep breaths. She feels short of breath with exertion. She had a fever at the outset of her GI illness but not currently. She has no URI type symptoms in regards to congestion, sore throat, cough. She has no leg pain or leg swelling. She does have estrogen patch on for control. She also has history of palpitations and tachycardia which is been worked up by cardiology at [facility]. She is taken Tylenol and Motrin for the chest pain which has persisted so she came in this morning for evaluation. Related Data Home Medications Medication Instructions Recorded Confirmed fludrocortisone 0.1 mg tablet 0.1 mg PO DAILY 08/06/19 10/28/19 norelgestromin 150 mcg-e.estradiol 1 patch TD QWEEK #3 each 10/25/19 10/28/19 35 mcg/24 hr weekly transderm patch Previous Rx's Medication Instructions Recorded norelgestromin 150 mcg-e.estradiol 1 patch TD QWEEK #3 each 10/25/19 35 mcg/24 hr weekly transderm patch Allergies Allergy/AdvReac Type Severity Reaction Status Date / Time No Known Drug Allergies Allergy Unverified 09/14/19 09:07 General Stated Complaint: SOB DIANE: 2 Review of Systems <Sebastien Wood MD - Last Filed: 10/28/19 20:34> Narrative: As documented in HPI otherwise negative as below. Const: fever; no chills, weakness Resp: SOB w/ exertion, pleuritic pain; no cough CV: CP; no diaphoresis, edema, syncope GI: abdominal pain (mild), nausea, vomiting, diarrhea Neuro: no headache, numbness, focal weakness, confusion PFSH <Sebastien Wood MD - Last Filed: 10/28/19 20:34> Medical History Exposure to chlamydia (~04/2016) + CT probe. Rx with Azithromycin. 05/2016 TERESA neg. HSV-1 (herpes simplex virus 1) infection 04/2016. initial exposure. vulva. Rx with Acyclovir. Tachycardia with heart rate 121-140 beats per minute (Chronic) Surgical History section (03/12/17) LTCS for macrosomia after unsuccessful IOL. Janes Gaonason. 10lbs 5oz. . KK. S/P shoulder surgery (Inactive) Tonsillectomy and adenoidectomy (~2002) Social History Smoking/Tobacco Use Status: Former Tobacco Use Alcohol Intake: current Alcohol Intake frequency: a few times a month Drug use: Never Substance use type: does not use Do you feel safe at home: Yes Do you feel safe in your relationship?: Yes Female Reproductive History Menstrual Age of Menarche: 17 control method: patch History History 1 Para Hx # Term Pregnancies 1 Multiple births Hx # Pregnancies Ectopic pregnancies AB induced Hx Number of Living Children AB spontaneous Exam <Sebastien Wood MD - Last Filed: 10/28/19 20:34> Narrative Exam Narrative: Vitals: Afebrile. Tachycardic. Otherwise normal vital signs and normal room air pulse ox. Const: WDWN female in NAD. HEENT: NC/AT. Normal facial exam. Eyes: Normal conjunctiva and sclera. Neck: Supple. Trachea midline. Lungs: Normal respiratory effort. Lungs are clear. No chest wall tenderness. Cor: RRR without murmur/gallop. Good radial pulses. GI: Soft. NT/ND. No guarding or rebound. Neuro: A+O x 3. Normal speech, mentation, gait. Cranial nerves II - XII grossly intact. No gross motor or sensory deficit. Ext: No C/C/E. No calf tenderness. Skin: Warm and dry without rash. Course <Sebastien Wood MD - Last Filed: 10/28/19 20:34> Vital Signs Vital signs: Vital Signs Temperature 98.2 F 10/28/19 06:54 Pulse 129 H 10/28/19 06:54 Respiratory Rate 18 10/28/19 06:54 Blood Pressure 126/86 10/28/19 06:54 Pulse Oximetry 99 10/28/19 06:54 Temperature 98.2 F 10/28/19 06:54 Temperature Source Temporal Artery Scan 10/28/19 06:54 Pulse 129 H 10/28/19 06:54 Respiratory Rate 18 10/28/19 06:54 Blood Pressure 126/86 10/28/19 06:54 Blood Pressure Position Sitting 10/28/19 06:54 Pulse Oximetry 99 10/28/19 06:54 Oxygen Delivery Method Room Air 10/28/19 06:54 Oxygen Flow Rate 0 10/28/19 06:54 Pain Level 6 10/28/19 06:54 Sign Out <Sebastien Wood MD - Last Filed: 10/28/19 20:34> Sign Out Data: Sign Out Comment: Pending laboratory studies and CT scan. Last updated by Sebastien Wood MD at 10/28/19 08:03
[2019-10-28] MEDS: Ondansetron 4 MG/2 ML VIAL IVP (07:51)
--- NOTE | 2019-10-28 07:55 | NUR.NOTE ---
labs sent Nursing Note:
[2019-10-28 08:01] LABS: Abs Immature Grans 0.01 k/cumm (0.0-0.09); Absolute Basophil Count 0.02 k/cumm (0.0-0.2); Absolute Eosinophil Count 0.04 k/cumm (0.0-0.7); Absolute Lymphocyte Count 1.36 k/cumm (1.2-3.4); Absolute Monocyte Count 0.53 k/cumm (0.11-0.7); Absolute Neutrophil Count 4.48 k/cumm (1.2-6.7); Basophils % 0.3; Eosinophils % 0.6; HGB 14.2 g/dL (12.0-15.5); Immature Grans % 0.2 %; Lymphocytes % 21.1; Mean Corp. HGB Concentration 34.6 g/dL (32.0-36.0); Mean Corpuscular Hemoglobin 31.6 pg (27.0-33.0); Mean Corpuscular Volume 91.1 fL (80-95); Mean Platelet Volume 10.8 fL (8.0-11.0); Monocytes % 8.2; Neutrophils % 69.6; Platelet Count 263 x1000/uL (130-400); RBC Distribution Width 12.1 % (11.7-14.6); White Blood Cell Count 6.44 k/cumm (4.4-10.8)
--- NOTE | 2019-10-28 08:08 | DI.CT_ITS ---
EXAM: CT CHEST PE CTA CLINICAL HISTORY: pleuritic pain and SOB TECHNIQUE: COMPARISON: CT CHEST PE ABD PELVIS W from 02/05/2019 FINDINGS: CT angiography of the chest was performed with intravenous infusion of 100 cc of Omnipaque 350. Imag es obtained through the upper abdomen show unremarkable appearance of visualized portions of the live r, spleen, adrenals, kidneys, and pancreas. No mediastinal or hilar adenopathy. Tracheobronchial tree appears intact. Lungs are clear. No evid ence of pulmonary embolic disease. Thoracic aorta and major branches appear normal. IMPRESSION: Negative CT a chest. No evidence of pulmonary embolic disease.
[2019-10-28 08:18] LABS: ALT 11 U/L (14-59); AST 11 U/L (15-37); Albumin 3.5 g/dL (3.4-5.0); Alkaline Phosphatase 45 U/L (46-116); Anion Gap 10.8 mmol/L (3-11); BUN 9 mg/dL (7-18); Bilirubin, Total 1.9 mg/dL (0.2-1.0); CO2 25.2 mmol/L (21.0-32.0); CREATININE 0.75 mg/dL (0.55-1.02); Calcium 7.7 mg/dL (8.5-10.1); Chloride 103 mmol/L (98-107); Glucose 96 mg/dL (74-106); Potassium 3.3 mmol/L (3.5-5.1); Sodium 139 mmol/L (136-145); Total Protein 7.3 g/dL (6.4-8.2)
[2019-10-28 08:19] LABS: Troponin I < 0.05 ng/Ml (<0.06)
[2019-10-28] MEDS: Omnipaque 350 MG/ML 100 ML BTL IJ (08:20)
--- NOTE | 2019-10-28 08:22 | NUR.NOTE ---
patient returned from CT, placed back on surveillance monitor nausea improved and chest pain 4/10 Nursing Note:
[2019-10-28] MEDS: Lactated Ringers 1,000 ML 200 ML IV (08:25)
[2019-10-28] MEDS: Potassium Chloride 20 MEQ TABCR PO (08:54)
[2019-10-28] MEDS: Calcium Carbonate 1.5 GM TAB 3 GM PO (09:02)
[2019-10-28] MEDS: Lactated Ringers 500 ML IV (09:19)
--- NOTE | 2019-10-28 10:58 | NUR.NOTE ---
Nursing Note: referal for f/u faxed to pcp noah lewis
== END 2019-10-28 09:22 | disposition home or self-care (01) ==
PROVIDERS: Emergency Medicine; Emergency Provider Student in an Organized Health Care Education/Training Program; PCP Nurse Practitioner
DX: R07.81 Pleurodynia (principal); E87.6 Hypokalemia; E83.51 Hypocalcemia; R11.2 Nausea with vomiting, unspecified
CPT/HCPCS: 36415; 71275; 80053; 81025; 93005; 96361; 96374; 99285; 84484; 85025; 93010; J2405; J3490

== ENCOUNTER 2019-11-08 14:30 | Outpatient (CLI) | payer OTHER, MEDICAID, SELFPAY ==
[2019-11-08 15:53] LABS: Calcium 8.3 mg/dL (8.5-10.1); Potassium 3.6 mmol/L (3.5-5.1)
== END 2019-11-08 14:50 ==
PROVIDERS: PCP Nurse Practitioner; Visit Provider Nurse Practitioner
DX: R79.9 Abnormal finding of blood chemistry, unspecified (principal)
CPT/HCPCS: 36415; 82310; 84132

== ENCOUNTER 2019-11-12 15:52 | Outpatient (REF) | payer OTHER, MEDICAID, SELFPAY ==
--- NOTE | 2019-11-12 15:35 | PAPFT_PTH ---
PATIENT: Harika Potter LOC: [facility] U#:[id number] AGE/SX: 24/F ROOM: RE11/12/[address]: Rashmi Amato : 1995 BED: DIS: 11/12/2019 SPEC #: [id number] RECD: 11/12/19 17:24 STATUS: ALIA DARDEN #: [id number] MAEGAN: 11/12/19 15:[address]: Rashmi Amato DEPT: [facility] Cytology RECD BY: Mary Sams ENTERED: 11/12/19 17:25 SP TYPE: PAPFT JUDE DR: Teri Gomez APRN Tissues: 1 - CX/ENDOCX FOR PAP SMEARS Procedures: PAP THIN PREP/UVM Screening Comments: [id number]
[2019-11-16 07:20] LABS: Chlamydia Result Negative (Negative); GC Result Negative (Negative)
== END 2019-11-12 16:12 ==
LOC: LBN 15:52
PROVIDERS: PCP Nurse Practitioner; Visit Provider Obstetrics & Gynecology Gynecology
DX: Z11.3 Encounter for screening for infections with a predominantly sexual mode of transmission (principal); Z12.4 Encounter for screening for malignant neoplasm of cervix
CPT/HCPCS: 87491; 87591; 88142

== ENCOUNTER 2020-03-01 14:39 | Outpatient (CLI) | payer OTHER, MEDICAID, SELFPAY ==
[2020-03-01 15:12] LABS: HCT 39.7 % (36.0-46.0); HGB 13.6 g/dL (12.0-15.5); Mean Corp. HGB Concentration 34.3 g/dL (32.0-36.0); Mean Corpuscular Hemoglobin 31.5 pg (27.0-33.0); Mean Corpuscular Volume 91.9 fL (80-95); Mean Platelet Volume 10.6 fL (8.0-11.0); Platelet Count 306 x1000/uL (130-400); RBC 4.32 m/cumm (4.00-5.20); RBC Distribution Width 11.8 % (11.7-14.6); White Blood Cell Count 7.48 k/cumm (4.4-10.8)
[2020-03-01 16:03] LABS: Ferritin 13 ng/mL (8-252)
== END 2020-03-01 14:59 ==
PROVIDERS: PCP Nurse Practitioner; Visit Provider Nurse Practitioner
DX: N92.0 Excessive and frequent menstruation with regular cycle (principal); Z86.2 Personal history of diseases of the blood and blood-forming organs and certain disorders involving the immune mechanism
CPT/HCPCS: 36415; 85027; 82728

== ENCOUNTER 2020-03-30 02:04 | Outpatient (CLI) | payer OTHER, MEDICAID, SELFPAY ==
[2020-03-30 16:41] LABS: ALT 16 U/L (14-59); AST 12 U/L (15-37); Albumin 4.4 g/dL (3.4-5.0); Alkaline Phosphatase 54 U/L (46-116); Anion Gap 10.2 mmol/L (3-11); BUN 9 mg/dL (7-18); Bilirubin, Total 2.1 mg/dL (0.2-1.0); CO2 24.8 mmol/L (21.0-32.0); CREATININE 0.73 mg/dL (0.55-1.02); Calcium 9.1 mg/dL (8.5-10.1); Chloride 103 mmol/L (98-107); Glucose 86 mg/dL (74-106); Sodium 138 mmol/L (136-145); TSH (W/Ref FT4) 2.33 uIU/mL (0.36-3.74); Total Protein 7.5 g/dL (6.4-8.2)
[2020-03-31 11:34] LABS: Lyme Ab w Rflx to Lyme Confirm Negative (Negative)
[2020-04-03 00:24] LABS: Anaplasma phagocytophilum Negative (Negative); B. miyamotoi PCR Negative (Negative); Babesia divergens/MO-1 Negative (Negative); Babesia duncani Negative (Negative); Babesia microti Negative (Negative); Ehrlichia chaffeensis Negative (Negative); Ehrlichia ewingii/canis Negative (Negative); Ehrlichia muris eauclairensis Negative (Negative)
== END 2020-03-30 02:24 ==
PROVIDERS: PCP Nurse Practitioner; Visit Provider Nurse Practitioner
DX: I10 Essential (primary) hypertension (principal); R11.0 Nausea; R42 Dizziness and giddiness
CPT/HCPCS: 36415; 80053; 87798; 84443; 86618

== ENCOUNTER 2020-04-28 02:39 | Outpatient (CLI) | payer OTHER, MEDICAID, SELFPAY ==
[2020-04-28] MEDS: Gadoterate meglumine 20 ML VIAL 12 ML IV (15:24)
[2020-04-28] MEDS: Normal Saline Flush 10 ML SYR 20 ML IV (15:25)
--- NOTE | 2020-04-28 16:00 | DI.MRI_ITS ---
EXAM: MR IAC BRAIN WO/W CLINICAL HISTORY: IMBALANCE, HEADACHES, R51. TECHNIQUE: Multiplanar multisequence MRI was performed. COMPARISON: No exams were available for comparison FINDINGS: MR examination of the brain was performed according to the usual protocol with additional pre and pos t contrast full brain imaging and pre and post contrast high-resolution multiplanar imaging of the po sterior fossa and temporal bone structures. No signal abnormality identified in the brain. No mass lesion or enhancing lesion on whole brain rose ging or on high-resolution imaging of the IAC region. The orbital and temporal bone structures appea r intact. No evidence of diffusion restriction. No evidence of intracranial hemorrhage on susceptib ility weighted images. No signal abnormality identified in the brain. Normal flow void noted in cir [id number] vasculature. Unremarkable appearance of the pituitary. IMPRESSION: Negative brain MRI with additional imaging of the temporal bone/posterior fossa structures as describ ed above. DATA REPOSITORY:
== END 2020-04-28 02:59 ==
PROVIDERS: PCP Nurse Practitioner; Visit Provider Otolaryngology
DX: R51 Headache (principal)
CPT/HCPCS: 70553

== ENCOUNTER 2020-05-09 07:59 | Outpatient (CLI) | payer OTHER, MEDICAID, SELFPAY ==
[2020-05-11 05:36] LABS: SARS-CoV-2 RNA Undetected (Undetected)
== END 2020-05-09 08:19 ==
PROVIDERS: PCP Nurse Practitioner; Visit Provider Nurse Practitioner
DX: Z11.59 Encounter for screening for other viral diseases (principal)
CPT/HCPCS: U0003

== ENCOUNTER 2020-05-10 11:00 | Outpatient (CLI) | payer OTHER, MEDICAID, SELFPAY ==
[2020-05-10 11:34] LABS: HCG Quant, Pregnancy 12 mIU/mL (1-3)
== END 2020-05-10 11:20 ==
PROVIDERS: PCP Nurse Practitioner; Visit Provider Nurse Practitioner Women's Health
DX: N91.2 Amenorrhea, unspecified (principal); R11.0 Nausea
CPT/HCPCS: 36415; 84702

== ENCOUNTER 2020-05-12 04:39 | Outpatient (CLI) | payer OTHER, MEDICAID, SELFPAY ==
[2020-05-12 09:39] LABS: HCG Quant, Pregnancy 40 mIU/mL (1-3)
== END 2020-05-12 04:59 ==
PROVIDERS: PCP Nurse Practitioner; Visit Provider Nurse Practitioner Women's Health
DX: N91.2 Amenorrhea, unspecified (principal)
CPT/HCPCS: 36415; 84702

== ENCOUNTER 2020-05-23 07:40 | Outpatient (CLI) | payer OTHER, MEDICAID, SELFPAY ==
[2020-05-25 02:08] LABS: SARS-CoV-2 RNA Undetected (Undetected)
== END 2020-05-23 08:00 ==
PROVIDERS: PCP Nurse Practitioner; Visit Provider Nurse Practitioner
DX: Z11.59 Encounter for screening for other viral diseases (principal)
CPT/HCPCS: U0003

== ENCOUNTER 2020-05-24 02:39 | Outpatient (CLI) | payer OTHER, MEDICAID, SELFPAY ==
[2020-05-24 15:20] LABS: HCG Quant, Pregnancy 14727 mIU/mL (1-3)
== END 2020-05-24 02:59 ==
PROVIDERS: PCP Nurse Practitioner; Visit Provider Obstetrics & Gynecology
DX: O20.0 Threatened abortion (principal)
CPT/HCPCS: 36415; 84702

== ENCOUNTER 2020-07-07 10:46 | Outpatient (CLI) | payer OTHER, MEDICAID, SELFPAY ==
[2020-07-07 16:48] LABS: *AMPHETAMINES SCREEN URINE Negative (Negative); *BARBITURATES SCREEN URINE Negative (Negative); *BENZODIAZEPINES SCREEN URINE Negative (Negative); Cannabinoids THC Negative (Negative); Cocaine Screen,Urine Negative (Negative); METHADONE URINE SCREEN Negative (Negative); OPIATES URINE SCREEN Negative (Negative)
[2020-07-07 16:49] LABS: Tricyclic Antidepressants Negative (Negative)
[2020-07-10 15:10] LABS: Chlamydia Result Negative (Negative); GC Result Negative (Negative)
[2020-07-13 10:45] LABS: Buprenorphine Negative; Norbuprenorphine Negative
== END 2020-07-07 11:06 ==
PROVIDERS: PCP Nurse Practitioner; Visit Provider Advanced Practice Midwife
DX: Z34.91 Encounter for supervision of normal pregnancy, unspecified, first trimester (principal)
CPT/HCPCS: 80307; 87491; 87591; 87086

== ENCOUNTER 2020-07-13 02:24 | Outpatient (CLI) | payer OTHER, MEDICAID, SELFPAY ==
[2020-07-13 09:29] LABS: Kit/Specimen SENT
[2020-07-13 09:33] LABS: Abs Immature Grans 0.02 10^3/uL (0.0-0.06); Absolute Basophil Count 0.03 10^3/uL (0.0-0.2); Absolute Eosinophil Count 0.04 10^3/uL (0.0-0.7); Absolute Lymphocyte Count 2.01 10^3/uL (1.2-3.4); Absolute Neutrophil Count 4.97 10^3/uL (1.2-6.7); Basophils % 0.4; Eosinophils % 0.5; HCT 36.2 % (36.0-46.0); HGB 12.5 g/dL (11.2-15.7); Immature Grans % 0.3; Lymphocytes % 26.6; MCH 31.2 pg (27.0-33.0); MCHC 34.5 % (32.0-36.0); MCV 90.3 fL (80-95); Monocytes % 6.6; Neutrophils % 65.6; Nucleated RBC 0 %; Platelet Count 246 10^3/uL (130-400); RBC 4.01 10^6/uL (3.93-5.22); RDW 11.7 % (11.7-14.6); RDW-SD 38.4 fL; WBC 7.57 10^3/uL (4.4-10.8)
[2020-07-13 09:55] LABS: Glucose,1 Hr (Glucola) 115 mg/dL (80-140)
[2020-07-14 08:39] LABS: Hepatitis B Surface Ag Negative (Negative)
[2020-07-14 09:10] LABS: HIV-1/2 Ag & Ab Screen Negative (Negative)
[2020-07-14 09:33] LABS: Hepatitis C Ab w Rflx HCV PCR Negative (Negative)
[2020-07-14 10:51] LABS: Varicella IgG Antibody Positive (See Note)
[2020-07-14 10:54] LABS: Rubella IgG Ab (UVM) Positive (See Note)
[2020-07-15 10:44] LABS: Syphilis Total Ab w/Reflex Nonreactive (Nonreactive)
[2020-07-18 18:18] LABS: Specimen WB Whole Blood
== END 2020-07-13 02:44 ==
PROVIDERS: PCP Nurse Practitioner; Visit Provider Advanced Practice Midwife
DX: Z34.91 Encounter for supervision of normal pregnancy, unspecified, first trimester (principal)
CPT/HCPCS: 36415; 81329; 82950; 86787; 86803; 86850; 86900; 86901; 87340; 87389; 84443; 85025; 86762; 86780

== ENCOUNTER 2020-08-08 00:35 | Outpatient (CLI) | payer OTHER, MEDICAID, SELFPAY ==
--- NOTE | 2020-08-08 07:45 | DI.US_ITS ---
EXAM: US OB 2-3 TRIMESTER CLINICAL HISTORY: routine pnc,Z34.90. TECHNIQUE: Transabdominal obstetrical ultrasound performed. COMPARISON: None. FINDINGS: Transabdominal obstetrical ultrasound performed. FINDINGS: Number of fetuses: One. position: Breech heart rate: 162 bpm. Placental location: Fundal no evidence of previa. BIOMETRIC DATA: Composite Age: 17 weeks 1 day EDC: 01/05/2021 Heart Rate: 162BPM Amniotic fluid: Amount of fluid is within normal limits. ANATOMICAL SURVEY: Within normal limits. BPD: 3.7cm HC: 13.6cm AC: 11.1cm FL: 2.3cm Cisterna Magna: 2.6 mm Cerebellum: 1.7 cm IMPRESSION: 1. Single live intrauterine gestation as above. 2. Normal anatomic survey. DATA REPOSITORY:
== END 2020-08-08 00:55 ==
PROVIDERS: PCP Nurse Practitioner; Visit Provider Advanced Practice Midwife
DX: Z34.92 Encounter for supervision of normal pregnancy, unspecified, second trimester (principal)
CPT/HCPCS: 76805

== ENCOUNTER 2020-10-26 01:59 | Outpatient (CLI) | payer OTHER, MEDICAID, SELFPAY ==
--- NOTE | 2020-10-26 07:15 | DI.US_ITS ---
EXAM: US LOWER EXTREMITY VENOUS RT CLINICAL HISTORY: R le tender blue vessel outer calf,SUPERFICIAL THROMBOPHLEBITIS,I80.9 TECHNIQUE: Grayscale, color, and doppler imaging of the deep venous system of the lower extremity w as performed. COMPARISON: US US OB 2-3 TRIMESTER from 08/08/2020 FINDINGS: There is no evidence of intraluminal thrombus and there is normal compression and augmentation demons trated within the common femoral veis, femoral veis, and popliteal vein. In the ipsilateral calf the interrogated veins also exhibit normal compression/ augmentation properti es. The greater saphenous veins also appear patent as does the saphenofemoral junction. Incidentally noted is a 13 x 7 x 13 millimeter hypoechoic area in the right calf which has appearance of a probable lipoma or possible secondary to bruising. IMPRESSION: 1. No evidence of DVT in the right lower extremity. 2. 13 x 7 x 13 millimeter benign-appearing hyperechoic relatively superficial finding in the lateral right calf area of bruising. This is probably related to trauma. No necrosis. DATA REPOSITORY:
== END 2020-10-26 02:19 ==
PROVIDERS: PCP Nurse Practitioner; Visit Provider Obstetrics & Gynecology Gynecology
DX: M79.661 Pain in right lower leg (principal)
CPT/HCPCS: 93971

== ENCOUNTER 2020-10-26 02:51 | Outpatient (CLI) | payer OTHER, MEDICAID, SELFPAY ==
[2020-10-26 16:08] LABS: HCT 33.2 % (36.0-46.0); MCH 31.1 pg (27.0-33.0); MCHC 33.1 % (32.0-36.0); MCV 93.8 fL (80-95); MPV 10.5 fL (8.0-11.0); Platelet Count 247 10^3/uL (130-400); RBC 3.54 10^6/uL (3.93-5.22); RDW 11.8 % (11.7-14.6); RDW-SD 40.7 fL; WBC 10.39 10^3/uL (4.4-10.8)
[2020-10-26 16:25] LABS: Glucose,1 Hr (Glucola) 113 mg/dL (80-140)
== END 2020-10-26 03:11 ==
PROVIDERS: PCP Nurse Practitioner; Visit Provider Advanced Practice Midwife
DX: Z34.93 Encounter for supervision of normal pregnancy, unspecified, third trimester (principal); Z3A.28 28 weeks gestation of pregnancy
CPT/HCPCS: 82950; 85027

== ENCOUNTER 2020-12-07 02:32 | Outpatient (CLI) | payer OTHER, MEDICAID, SELFPAY ==
--- NOTE | 2020-12-07 09:00 | DI.US_ITS ---
EXAM: US ABDOMEN CLINICAL HISTORY: sharp, intermittent RUQ pain IN for past week,R10.11,Z34.83 TECHNIQUE: Ultrasound abdomen performed using standard protocol. COMPARISON: No exams were available for comparison FINDINGS: ABDOMINAL AORTA AND IVC: Visualized portions normal caliber. PANCREAS: Normal where visualized. LIVER: Normal. Hepatopedal flow in the Portal Vein. The liver measures 18.2 cm in length. GALLBLADDER: No evidence of cholelithiasis. No evidence of wall thickening. No pericholecystic fluid identified. BILIARY SYSTEM: Common bile duct measures < 7 mm. No intrahepatic biliary ductal dilation. YARBROUGH'S SIGN: Negative. KIDNEYS: Kidneys are symmetric in size. No evidence of renal calculi. No evidence of hydronephrosis. No renal mass or cyst identified. SPLEEN: Not enlarged. ASCITES: None seen. IMPRESSION: Mild hepatomegaly. Otherwise unremarkable abdominal ultrasound. DATA REPOSITORY:
== END 2020-12-07 02:52 ==
PROVIDERS: PCP Nurse Practitioner; Visit Provider Obstetrics & Gynecology Gynecology
DX: R16.0 Hepatomegaly, not elsewhere classified (principal)
CPT/HCPCS: 76700

== ENCOUNTER 2020-12-26 12:16 | Outpatient (REF) | payer OTHER, MEDICAID, SELFPAY | END 2020-12-26 12:17 | disposition home or self-care (01) | LOC: LBN 12:16 | PROVIDERS: PCP Nurse Practitioner; Visit Provider Obstetrics & Gynecology Gynecology | DX: Z34.83 Encounter for supervision of other normal pregnancy, third trimester (principal); Z36.85 Encounter for antenatal screening for Streptococcus B; Z3A.36 36 weeks gestation of pregnancy | CPT/HCPCS: 87081 ==

== ENCOUNTER 2020-12-29 12:23 | Inpatient (IN) | payer OTHER, MEDICAID, SELFPAY ==
[2020-12-29] VITALS (12 sets, daily range): BP systolic 114–138; BP diastolic 70–82; PULSE 85–130; RESP 14–16; TEMP 36.4–37; O2SAT 96–99
--- NOTE | 2020-12-29 10:18 | HPE_ITS ---
Date of service: 12/29/20 Time of Service: 10:18 Assessment and Plan Assessment and plan (1) Uterine contractions: Status: Acute Assessment and plan: Early labor at term. Patient declines trial of labo r. She has signed informed consent for elective repeat delivery and bilateral tubal sterilization in the form of a salpingectomy. Risks of the procedure were reviewed with the patient including infection damage surrounding structures including bowel bladder blood vessels and ureters. She received antibiotics prior to the OR. She is sure of her decision for bilateral tubal sterilization. Informed consent was obtained (2) Patient declines vaginal after section (): Status: Acute History of Present Illness History of Present Illness Chief Complaint: Contractions Narrative: Patient is a 25yo G2, P1 female with an estimated date of delivery of 01/16/2021 currently at 37-3/7 weeks estimated gestational age who called the office to report the onset of mild uterine contractions beginning at 630 this morning and increasing in intensity and frequency throughout the the morning. Patient is scheduled for elective repeat delivery at 39 weeks. care: Initiated care at 7 weeks estimated stational age first trimester blood pressure 116/73 trimester blood pressure 122/81 total of 13 visits 49 pound weight gain. Rh+. Counseled regarding trial of labor and declined . She has signed a federal consent form for permanent sterilization. Review of Systems All systems reviewed & are unremarkable except as noted in HPI and below Cardiovascular Cardiovascular: Denies lightheadedness, Reports palpitations and Denies dyspnea on exertion Respiratory Respiratory: Reports system reviewed and no additional complaints, except as documented and Denies dyspnea on exertion Gastrointestinal Comments: Had a small breakfast this morning Genitourinary Genitourinary: Reports as per HPI (No loss of fluid, no vaginal bleeding) Musculoskeletal Musculoskeletal: Reports back pain (With radiation to the front) Psychiatric Psychiatric: Reports anxiety (Contractions becoming more intense and more regular) Endocrine Endocrine: Reports palpitations [facility] Medical History (Updated 12/29/20 @ 11:55 by Rashmi Amato MD) Encounter for supervision of other normal , second trimester Encounter for supervision of other normal , third trimester Exposure to chlamydia (~04/2016) + CT probe. Rx with Azithromycin. 05/2016 TERESA neg. 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 Rx with Acyclovir. POTS (postural orthostatic tachycardia syndrome) 2019. S/p evaluation by cardiology RUQ abdominal pain Superficial thrombophlebitis Tachycardia with heart rate 121-140 beats per minute Threatened miscarriage in early Surgical History (Updated 12/29/20 @ 11:55 by Rashmi Amato MD) section (03/12/17) LTCS for macrosomia after unsuccessful IOL. Janes Bernal. 10lbs 5oz. breast feeding. KK. S/P shoulder surgery Tonsillectomy and adenoidectomy (~2002) Family History (Updated 10/23/20 @ 08:47 by Daria Wu CNM) Father DVT (deep venous thrombosis) Paternal Grandfather Heart disease blood clot in heart Social History (Updated 12/29/20 @ 11:49 by Rashmi Amato MD) Smoking/Tobacco Use Status: Former Tobacco Use Smoking risk assessment performed?: Yes Alcohol Intake: current Alcohol Intake frequency: a few times a month Details: stopped w/ knowledge of . 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 Date GA/Weeks # Outcome Route Wgt Sex Labor Lgth Anesthes ia Location Prov Complic 03/12/17 41 No Successful 10 lb 6 oz Male electiv e c/s for lga w/o labor [facility] Delivery Date: 03/12/17 GDM, diet controlled. 10 days overdue, 10lbs 6 oz. by sono, scheduled primary C/S that day. Rena Wooten Home Medications and Allergies Allergies Allergy/AdvReac Type Severity Reaction Status Date / Time No Known Drug Allergies Allergy Verified 12/26/20 10:49 Home Medications Medication Instructions Recorded Confirmed Type albuterol sulfate 90 mcg/actuation 2 puff INHALATION Q4H PRN #1 11/03/19 Rx aerosol inhaler inhaler prenat.vits,sandy,[id number] 1 tab PO DAILY 05/31/20 09/06/20 History Exam Narrative Exam Narrative: Patient contacted the [facility] this morning and had a evaluation on the center. Her cervix was closed and soft with of high presenting vertex presentation. Her contractions have continued to the be every 3 minutes and increasingly painful per patient report. She has expressed a desire for a repeat delivery with bilateral tubal sterilization during her and has signed a consent for the above-stated procedure. Neck Neck: normal visual inspection Resp Effort & Inspection: normal respiratory effort Auscultation: clear to auscultation bilaterally Cardio Rate: tachycardic Rhythm: regular rhythm GI Inspection: normal to inspection Palpation: other (Gravid) Speculum Exam - Vagina: No vaginal bleeding Speculum Exam - Cervix: No cervical os open OB/External & Speculum: external exam normal, No cervical os open and No vaginal bleeding Manual OB Exam: dilated fingertip, effaced 50% and station high Amniotic Fluid: other (No spontaneous rupture membranes) Skin General skin exam: no rashes or lesions noted Extrem General: normal to inspection, full ROM and capillary refill normal (Ankle: Knee deep tendon tendon reflexes present +1 bilaterally) Psych Appearance: grossly normal Mental Status: mental status grossly normal Speech and Movement: speech and movement normal Mood: anxious mood Affect: normal affect Attitude: cooperative Thought Process: normal Thought Content: normal Insight: insight good Judgment: judgment good Results Labs Result diagrams: 12/29/20 Unknown Last Vital Signs Pulse 130 H 12/29/20 10:08 BP 138/71 12/29/20 10:08 COVID-19 Screening Have you, or household traveled for leisure in last 14 days?: No
[2020-12-29 12:05] LABS: Source Nasal/Nares
[2020-12-29 12:09] LABS: HCT 33.5 % (36.0-46.0); HGB 10.7 g/dL (11.2-15.7); MCH 27.1 pg (27.0-33.0); MCHC 31.9 % (32.0-36.0); MCV 84.8 fL (80-95); MPV 10.9 fL (8.0-11.0); Platelet Count 247 10^3/uL (130-400); RBC 3.95 10^6/uL (3.93-5.22); RDW 13.5 % (11.7-14.6); RDW-SD 42.4 fL; WBC 12.41 10^3/uL (4.4-10.8)
[2020-12-29] MEDS: Lactated Ringers 1,000 ML 200 ML IV ×2 (12:30→14:52)
[2020-12-29 12:45] LABS: COVID-19 PCR Negative (Negative)
[2020-12-29] MEDS: ceFAZolin 2 GM/50 ML BAG IVPB (12:52)
[2020-12-29] MEDS: Sodium Citrate 30 ML CUP PO (13:13)
[2020-12-29] MEDS: AZITHROMYCIN 500 MG in Normal Saline 250 ML 250 MG IVPB (14:12)
--- NOTE | 2020-12-29 14:36 | FALL_PTH ---
PATIENT: Harika Potter LOC: OBS U#:[id number] AGE/SX: 25/F ROOM: OBS.303 RE12/29/[address]: Rashmi Amato : 1995 BED: A DIS: 12/31/2020 SPEC #: [id number] RECD: 12/29/20 17:28 STATUS: ALIA REAngy #: [id number] MAEGAN: 12/29/20 14:[address]: Rashmi Amato DEPT: Surgical Specimen RECD BY: Mary Sams ENTERED: 12/29/20 17:28 SP TYPE: Fall OTHR DR: Teri Gmoez APRN Tissues: 1 - FALLOPIAN TUBE (STERILIZATION) 2 - FALLOPIAN TUBE (STERILIZATION) Procedures: GROSS AND MICRO LEVEL 2 Comments: [id number]
[2020-12-29] MEDS: Bupivacaine LIPOSOME/PF 133 MG/10 ML VIAL IJ (15:01)
[2020-12-29] MEDS: Bupivacaine 0.25% Pres-Free 30 ML VIAL (15:01)
[2020-12-29] MEDS: Metoclopramide 10 MG/2 ML VIAL IVP (16:07)
[2020-12-29] MEDS: diphenhydrAMINE 50 MG/ML VIAL 25 MG IVP (16:24)
[2020-12-29] MEDS: Ketorolac 30 MG/ML VIAL IVP (20:06)
[2020-12-29] MEDS: Lactated Ringers 1,000 ML 125 ML IV (20:07)
[2020-12-30 00:20] VITALS: BP 112/63; PULSE 81; RESP 16; TEMP 36.8; O2SAT 97
[2020-12-30] MEDS: Acetaminophen 325 MG TAB 650 MG PO ×2 (00:34→19:06)
[2020-12-30] MEDS: Ketorolac 30 MG/ML VIAL IVP ×3 (02:12→14:46)
[2020-12-30] MEDS: Lactated Ringers 1,000 ML 120 ML IV (04:00)
[2020-12-30 05:06] VITALS: BP 110/68; PULSE 76; RESP 16; TEMP 36.7; O2SAT 98
[2020-12-30 07:21] LABS: Abs Immature Grans 0.11 10^3/uL (0.0-0.06); Absolute Basophil Count 0.04 10^3/uL (0.0-0.2); Absolute Eosinophil Count 0.03 10^3/uL (0.0-0.7); Absolute Monocyte Count 1.74 10^3/uL (0.1-0.8); Basophils % 0.3; Eosinophils % 0.2; HCT 26.6 % (36.0-46.0); HGB 8.4 g/dL (11.2-15.7); Immature Grans % 0.8; Lymphocytes % 13.8; MCH 27.3 pg (27.0-33.0); MCHC 31.6 % (32.0-36.0); MCV 86.4 fL (80-95); MPV 10.7 fL (8.0-11.0); Neutrophils % 72.9; Nucleated RBC 0 %; RBC 3.08 10^6/uL (3.93-5.22); RDW 13.5 % (11.7-14.6); RDW-SD 42.4 fL
[2020-12-30 07:32] LABS: Absolute Neutrophil Count 10.57 10^3/uL (1.2-6.7)
[2020-12-30 07:47] LABS: Diff Comment Diff Reviewed; Hypochromasia 2+; Platelet Count 226 10^3/uL (130-400)
[2020-12-30] MEDS: Docusate Sodium 100 MG CAP PO ×2 (07:59→21:33)
[2020-12-30 08:10] VITALS: BP 112/68; PULSE 75; RESP 18; TEMP 36.4; O2SAT 100
[2020-12-30 12:00] VITALS: BP 106/65; PULSE 73; RESP 16; TEMP 36.4; O2SAT 100
[2020-12-30] MEDS: Normal Saline Flush 10 ML SYR IVP (14:47)
[2020-12-30 16:07] VITALS: BP 108/67; PULSE 79; RESP 20; TEMP 36.8; O2SAT 98
[2020-12-30 20:00] VITALS: BP 109/65; PULSE 87; RESP 16; TEMP 36.7; O2SAT 98
--- NOTE | 2020-12-30 20:28 | PDOC.OPNB_ITS ---
Date of service: 12/29/20 Time of Service: 14:00 Operative Note Operative Note Delivery Method: Unscheduled Category: Urgent and Primary DATE OF PROCEDURE: 12/29/20 PRE-OP DIAGNOSES: IUP at 37w3d EGA, early labor, declines , desires sterilization POST-OP DIAGNOSES: same PROCEDURE: Urgent elective repeat delivery with bilateral salpingectomy SURGEON: Rashmi Amato Offset Assistant Press Operator: She King Anesthesia: spinal Estimated blood loss (mL): 800 Pathology: other (Cord blood to lab, right and left fallopian tubes to pathology) Complications: None Patient was transported to: floor Patient's condition: stable Indications: Patient is a 25yo G2, P1 female with an estimated date of delivery of 01/16/2021 currently at 37-3/7 weeks estimated gestational age who experienced the onset of mild uterine contractions beginning at 06:30 and increasing in intensity and frequency throughout the the morning. Patient is scheduled for elective repeat delivery at 39 weeks. Sterile vaginal exam at the time of admission fingertip soft 50% thin -2 station. Patient was visibly uncomfortable with contractions every 3 minutes lasting approximately a minute. Decision was made to proceed with delivery. Findings: Viable male weighing 3655 gms. Apgars 8 and 9. His parents intend to name him Ryder. Clear amniotic fluid normal fallopian tubes and ovaries. Normal uterus. Procedure Description: Patient was taken to the operating room where she was placed in the sitting position and spinal anesthesia was administered without difficulty. She was then placed in the dorsal supine position with a leftward tilt and the vagina was prepped with Betadine after which a Miller was placed to gravity drainage. She received 500mg Azithromycin and 2 g of Ancef IV prior to skin incision. After an adequate level of anesthesia was obtained and timeout performed a scalpel was used to incise the skin in a transverse fashion. The underlying subcutaneous tissue was dissected with Bovie electrocautery to the level of the rectus fascia. The rectus fascia was incised and the incision was extended laterally with curved Dowling scissors. Two [place] clamps were applied to the superior aspect of the rectus fascia and the rectus fascia was dissected off of the underlying rectus muscles with combination of blunt technique and Bovie electrocautery. A similar technique was carried out on the inferior aspect of the same incision. Rectus muscles were in the midline and the peritoneum was entered bluntly. A bladder blade was then used to retract the bladder away from the operative field. The vesicouterine peritoneum over the lower uterine segment was incised with a Metzenbaum scissors, the incision extended laterally and the bladder flap created digitally. The bladder blade was then reinserted to retract the bladder flap away from the operative field. Scalpel was used to incise the lower uterine segment in a transverse fashion. The amniotic sac was bluntly ruptured and clear amniotic fluid noted. The uterine incision was extended bluntly in transverse fashion. A single gloved hand was placed into the uterus and with the assistance of fundal pressure the infant's head was delivered atraumatically followed by trunk and extremities. The cord was doubly clamped and cut and the infant handed off to waiting pediatric team. The placenta was delivered intact with a combination of gentle cord traction and fundal massage. Cord blood was collected. The uterus was exteriorized and cleared of clots and debris using a moist laparotomy sponge. The uterine incision was then reapproximated with a running lock suture of 0 Vicryl followed by a second imbricating suture of 0 Vicryl. Uterine incision was carefully inspected and noted to be hemostatic. The fimbriated end of the right fallopian tube identified, grasped and the mesosalpinx sequentially clamped cauterized and transected using a hand-held LigaSure device. The right fallopian tube was then was then transected at the level of the right uterine cornua. A similar technique was carried out on the contralateral fallopian tube. Both fallopian tube pedicles were noted to be hemostatic at the completion of the procedure. The uterus was then returned to the abdomen and the uterine incision, bladder flap, and the anterior abdominal wall were inspected and noted to be hemostatic. The paracolic gutters were cleared of any clots and debris's. The visceral peritoneum was reapproximated with a running suture of 2-0 Vicryl followed by closure of the rectus fascia with a single layer of 0 Vicryl extending from the lateral margins and overlapping in the midline. Subcutaneous tissue was reapproximated with running suture of 2-0 Vicryl. The subcutaneous tissue was then nfiltrated with a mixture of Exparel and 0.25% Marcaine without Epinephrine. The skin incision was closed with a 4-0 Vicryl suture in a subcuticular fashion. The skin was then sealed with skin glue and the uterus was massaged for any remaining clots and debris. The patient was then transported to recovery in stable condition. All sponge lap needle counts are correct x2. [place] Gestational Age in Weeks/Days: 37 Weeks and 3 Days Gender: Male weight: 3655 lb Gender-Baby B: Male
--- NOTE | 2020-12-30 20:29 | OBPPV_ITS ---
Date of service: 12/30/20 Time of Service: 20:30 Assessment and Plan Assessment and plan (1) delivery delivered: Status: Acute Assessment and plan: Satisfactory recovery from urgent unscheduled repeat delivery. Breast-feeding well. Pain minimal. Plan is to discharge to home tomorrow along with infant (2) POTS (postural orthostatic tachycardia syndrome): Status: Acute Assessment and plan: Stable. Subjective Subjective Interval history: Unscheduled repeat c/s 12/29/20 after pt presented to in early active labor. During her she had been counseled regarding JOHN and declined . She was clear in her desire to have a bilateral tubal sterilization at the time of her c/s. Both procedures were carried out yesterday without complications. Patient comments: Pain well controlled and Tolerating diet Patient's Mood: Yesterday was anxious about outcome of the surgery. Anxiety resolved today. baby status: Doing well, Nursing well and Rooming in [place] feeding status: Exclusively breast feeding Exam Physical Exam Vital signs: Temp Pulse Resp BP Pulse Ox 98.1 F 87 16 109/65 98 12/30/20 20:00 12/30/20 20:00 12/30/20 20:00 12/30/20 20:00 12/30/20 20:00 Constitutional Constitutional: no acute distress Neck Exam Neck Exam: Normal Respiratory Exam Respiratory Exam: Normal Cardiovascular Exam Cardiovascular Exam: Normal Abdominal Exam Comments: Mild induration along superior margin of Pfannenstiel skin incision. Dressing removed this morning. Incision clean dry and intact. Fundal Exam Fundus: Below Umbilicus Extremities Exam Extremity Exam: Normal and Full ROM Skin Exam Skin Exam: Normal Psychiatric Exam Psychiatric Exam: Normal Results Hemoglobin/Hematocrit: Hgb 8.4 g/dL (11.2-15.7) L D 12/30/20 07:07 Hct 26.6 % (36.0-46.0) L D 12/30/20 07:07 Abnormal Lab Findings: Abnormal Labs 12/29/20 12/30/20 11:50 07:07 WBC 12.41 H 14.50 H RBC 3.08 L Hgb 10.7 L 8.4 L D Hct 33.5 L 26.6 L D MCHC 31.9 L 31.6 L Absolute Neutrophils 10.57 H Absolute Monocytes 1.74 H
[2020-12-30] MEDS: Ibuprofen 600 MG TAB PO (21:33)
[2020-12-31 00:10] VITALS: BP 109/62; PULSE 80; RESP 16; TEMP 36.6; O2SAT 97
[2020-12-31] MEDS: Acetaminophen 325 MG TAB 650 MG PO (06:14)
[2020-12-31 09:00] VITALS: BP 106/64; PULSE 108; RESP 16; TEMP 36.4; O2SAT 99
--- NOTE | 2020-12-31 09:29 | DSE_ITS ---
Date of service: 12/31/20 Time of Service: 09:47 DS: Diagnosis Discharge Diagnosis (1) delivery delivered: Status: Acute (2) Patient declines vaginal after section (): Status: Acute (3) History of sterilization procedure: Status: Acute (4) Contraception: Status: Acute Discharge Plan Disposition Patient Disposition: HOME Condition: Good Discharge Details Reason For Visit: IUP AT 37 WEEKS 3 DAYS EGA, EARLY LABOR, DECLINCES Admit Date/Time: 12/29/20 12:23 Admit Provider: Rashmi Amato Attending Provider: Rashmi Amato Primary Care Provider: Teri Gomez Hospital Course Hospital Course: Patient was admitted with contractions in early labor on 12/29/2020. She underwent a unscheduled repeat delivery of a male weighing 3655 g Apgars 8 and 9. His name will be Ryder. She was discharged home on postop day 2 successfully breast-feeding tolerating nonsteroidal anti-inflammatories and acetaminophen for pain. She will be seen in the [facility] center in approximately 2 weeks for a postop check. Patient will be contacted by the office regarding appointment time. Home Meds and New Rx's Prescriptions: No Action prenat.vits,sandy,[id number] Tablet 1 tab PO DAILY RF: 0 albuterol sulfate 90 mcg/actuation HFA aerosol inhaler 2 puff Inhalation Q4H PRN Qty: 1 RF: 6 Discharge Instructions Additional Instructions: Ibuprofen and acetaminophen for pain control. Call the on-call provider if you find yourself more comfortable. You can expect bruising along your incision. The skin glue may be removed and 3 to 4 days. Stand Alone Forms: BC Instructions, BC Discharge Instruc Activity:: Activity as Tolerated Equipment/Supplies:: No Equipment Needed Diet:: As Tolerated Discharge Orders Discharge Orders: Discharge Order (Routine); Ordered 12/31/20 Ordered By: Rashmi Amato DS: Summary Time Spent with Patient providing and/or coordinating discharge services: Less than 30 minutes Status at Discharge Functional status at discharge: independent ambulation Overall status at discharge: patient is progressing back to baseline Mental Status: mental status grossly normal Speech and Movement: speech and movement normal Mood: congruent mood Affect: normal affect Exam Const General: no acute distress Nutritional Appearance: average body habitus Orientation: alert, awake and oriented x3 Neck Neck: normal visual inspection Resp Effort & Inspection: normal respiratory effort Auscultation: clear to auscultation bilaterally Cardio Rate: regular rate Rhythm: regular rhythm GI Inspection: scar (Well-healed Pfannenstiel skin incision. Ecchymosis along superior margin) Palpation: soft and mass (Fundus firm 2 fingerbreadths below umbilicus) General: deferred Skin General skin exam: no rashes or lesions noted Extrem General: normal to inspection Psych Appearance: grossly normal Mental Status: mental status grossly normal Speech and Movement: speech and movement normal Mood: congruent mood Affect: normal affect Attitude: cooperative Thought Process: normal Thought Content: normal Insight: insight good Judgment: judgment good DS: Data Vitals/I&O Vitals and I&O: Vital Signs Temperature 97.9 F 12/31/20 00:10 Pulse 80 12/31/20 00:10 Pulse Rhythm Regular 12/30/20 20:00 Respiratory Rate 16 12/31/20 00:10 Respiratory Depth Normal 12/30/20 20:00 Blood Pressure 109/62 12/31/20 00:10 Blood Pressure Mean 77 12/31/20 00:10 Pulse Oximetry 97 12/31/20 00:10 Oxygen Delivery Method Room Air 12/29/20 10:08 Oxygen Flow Rate 0 12/29/20 10:08 Pain Level 2 12/31/20 06:14 Comment 12/30/20 12:00 Intake & Output 12/30/20 12/30/20 12/31/20 11:59 23:59 11:59 Intake Total 2465.417 / 3275.417 810 / 3275.417 Output Total 2675 / 3025 350 / 3025 Balance -209.583 / 250.417 460 / 250.417 Intake: IV 1625.417 / 1635.417 10 / 1635.417 Oral 840 / 1640 800 / 1640 Output: Urine 2675 / 3025 350 / 3025 Other: Urine Color Pale Pale Yellow Yellow Urine Appearance Clear [facility] Medical History (Updated 12/31/20 @ 09:51 by Rashmi Amato MD) Encounter for supervision of other normal , second trimester Encounter for supervision of other normal , third trimester Exposure to chlamydia (~04/2016) + CT probe. Rx with Azithromycin. 05/2016 TERESA neg. 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 Rx with Acyclovir. POTS (postural orthostatic tachycardia syndrome) 2018. S/p evaluation by cardiology RUQ abdominal pain Superficial thrombophlebitis Tachycardia with heart rate 121-140 beats per minute Threatened miscarriage in early Surgical History (Updated 12/31/20 @ 09:51 by Rashmi Amato MD) History of sterilization procedure 12/29/2020. At time of repeat delivery. Bilateral salpingectomy. S/P shoulder surgery Tonsillectomy and adenoidectomy (~2002) Family History (Updated 10/23/20 @ 08:47 by Daria Wu CNM) Father DVT (deep venous thrombosis) Paternal Grandfather Heart disease blood clot in heart Social History (Updated 12/31/20 @ 09:52 by Rashmi Amato MD) Smoking/Tobacco Use Status: Former Tobacco Use Smoking risk assessment performed?: Yes Alcohol Intake: current Alcohol Intake frequency: a few times a month Details: stopped w/ knowledge of . 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 Date GA/Weeks # Outcome Route Wgt Sex Labor Lgth Anesthes ia Location [facility] 03/12/17 41 No Successful 10 lb 6 oz Male electiv e c/s for lga w/o labor [facility] Delivery Date: 03/12/17 GDM, diet controlled. 10 days overdue, 10lbs 6 oz. by sono, scheduled primary C/S that day. Rena Wooten
[2020-12-31] MEDS: Docusate Sodium 100 MG CAP PO (10:49)
[2020-12-31] MEDS: Prenatal Multivitamin w/CA,FE TAB 1 TAB PO (10:50)
[2020-12-31] MEDS: Ibuprofen 600 MG TAB PO (10:50)
[2020-12-31 12:02] VITALS: BP 108/67; PULSE 96; RESP 16; TEMP 36.8; O2SAT 98
== END 2020-12-31 12:50 | disposition home or self-care (01) | DRG 783 ==
PROVIDERS: Admitting Provider Obstetrics & Gynecology Gynecology; PCP Nurse Practitioner; Visit Provider Obstetrics & Gynecology Gynecology
PROC: 10D00Z1 Extraction of Products of Conception, Low, Open Approach (ICD-10-PCS; CPT 59514; principal; 2020-12-29 09:45)
DX: O34.219 Maternal care for unspecified type scar from previous cesarean delivery (principal); O99.42 Diseases of the circulatory system complicating childbirth; Z37.0 Single live birth; O22.23 Superficial thrombophlebitis in pregnancy, third trimester; I49.8 Other specified cardiac arrhythmias; I80.00 Phlebitis and thrombophlebitis of superficial vessels of unspecified lower extremity; Z3A.37 37 weeks gestation of pregnancy; Z30.2 Encounter for sterilization
CPT/HCPCS: 59514; 58700; 36415; 85027; 86850; 86900; 86901; 87635; NC; 85025; 88302; G0378; J0131; J0456; J0690; J1100; J1200; J1885; J2405; J2590; J2765; J3010

== ENCOUNTER 2021-05-28 04:10 | Emergency (ER) | payer OTHER, MEDICAID, SELFPAY ==
[2021-05-28 04:13] VITALS: BP 122/73; PULSE 146; RESP 18; TEMP 36.8; O2SAT 99
--- NOTE | 2021-05-28 04:15 | DI.CT_ITS ---
Exam(s) CT ABDOMEN PELVIS W EXAM: CT ABDOMEN PELVIS W CLINICAL HISTORY: lower abdomen pain TECHNIQUE: Imaging Protocol: Axial computed tomography images with coronal and sagittal reformatted images were created and reviewed CONTRAST MATERIAL: Intravenous: Omnipaque 350 Contrast volume:90 mL Oral: No COMPARISON: CT CT CHEST PE CTA from 10/28/2019 FINDINGS: ABDOMEN: Lung Bases: Normal where visualized. Liver: Normal density. No measurable mass. Portal, Superior Mesenteric, and Splenic Veins: Unremarkable. Gallbladder and Biliary Tract: No radiodense calculus or dilation. Pancreas: Normal density, no abnormal calcifications or inflammatory process. Spleen: There is a stable cyst in the superior pole of the spleen. Adrenals: No masses seen. Kidneys: Normal size, contour and axis. No radiodense stones or obstructive uropathy. No masses seen. Abdominal Aorta: Abdominal portion non-dilated. Bowel: No obstruction or bowel wall thickening. The colon is largely collapsed. This likely accounts for the apparent bowel wall thickening. No pericolonic inflammatory changes are seen. Appendix is unr emarkable. Peritoneal Cavity: There is a trace amount of free fluid in the pelvis. This may be physiologic. No f ree air. Lymph Nodes: Within normal limits. Bones: Within normal limits for the patient's age. Soft Tissues: Small fat containing umbilical hernia. PELVIS: Bladder: Symmetric distention, no gross wall thickening. Reproductive Organs: There is a 2.2 cm peripherally enhancing right ovarian cyst likely reflecting a corpus luteal cyst. Three productive organs are otherwise unremarkable. Lymph Nodes: Within normal limits. Bones: Within normal limits for the patient's age. IMPRESSION: 1. 2.2 cm right corpus luteal cyst. Small amount of free fluid in the pelvis which is likely physiolo gic. 2. No other acute abdominal or pelvic process. RADIATION DOSE DELIVERED: 805.09mGy.cm Total DLP DATA REPOSITORY: All CT scans at this facility are submitted to the National Radiology Data Registry (NRDR) Dose Index Registry (DIR) with the [employer] (A[employer]). RADIATION OPTIMIZATION: All CT scans at this facility use at least one of these dose optimization te chniques: automated exposure control; mA and/or kV adjustment per patient size (includes targeted exa ms where dose is matched to clinical indication); or iterative reconstruction.
--- NOTE | 2021-05-28 04:22 | ED.GENADUL_ITS ---
Discharge Plan Disposition Patient Disposition: HOME Condition: Stable Discharge Details Clinical Impression: Abdominal pain Primary Care Provider: Teri Gomez ED Provider: Grant Grewal Home Meds and New Rx's Prescriptions: New ondansetron 4 mg tablet,disintegrating 4 mg PO Q8H PRN (Reason: nausea and vomiting) Qty: 30 RF: 0 Continued albuterol sulfate 90 mcg/actuation HFA aerosol inhaler 2 puff Inhalation Q4H PRN Qty: 1 RF: 6 Discharge Instructions Instructions: Abdominal Pain (ED) Additional Instructions: your cat scan did not show any emergent pathology such as appendicitis the veins in your pelvis were somewhat enlarged which could indicated pelvic congestion syndrome, follow up with women's wellness for further workup for this especially if symptoms continue if you feel more ill, have persistent vomit or severe worsening pain return to the emergency department Medical Decision Making 25 yo female with hx of prior c sections who comes in with abdomen pain that started while getting ready for bed around 6pm last night. She states it started in the mid abdomen just below the umbilicus and is still present there. She was not able to sleep well due to the pain so came here for an eval. She denies vomit but has nausea and states prior to the pain starting during the day she felt well without recent fevers or diarrhea. She has no upper abdomen tenderness and is tender in mid lower, periumbilical and in the right lower abdomen. Concern for possible sbo vs appendicitis as well as pancreatitis, will obtain labs and ct imaging to further evaluate labs with mild leukocytosis which she has had on prior labs,ct shows nonspecific symmetric prominence of parauterine veins which can be seen in pelvic congestion syndrome, right corpus luteum cyst, and either artifac of incomplete distention of or acute proctocolitis. She denies any diarrhea so suspect artifact. She feels somewhat improved after toradol, no guarding and mild right lower abdomen tenderness now. Discussed findings with the patient and given reassuring ct showing no emergent findings she is comfortable with d/c and following up with women's wellness and her pcp. She understood usual return precautions as well. Her HR initially was 140 which was likely pain induced and also due to her postural orthostatic tachycardia syndrome, HR now 90 on my exam. Differential Diagnosis Differential Diagnosis: appendicitis, pancreatitis, sbo Medical Records Medical records reviewed: Yes I reviewed the patient's medical records. Imaging Data Radiologic Study: Attestation: I personally reviewed and interpreted this imaging study as follows: Imaging: CT Scan Radiologist's impression: IMPRESSION: 1. 2.0 cm x 1.5 cm peripherally enhancing right ovarian corpus luteum with adjacent adnexal and culde-sac fluid. 2. Transverse colon, descending colon, sigmoid colon, and rectum almost completely evacuated of fecal material, collapsed, and apparently thick-walled. Artifact of incomplete distention or acute proctocolitis could produce this appearance. Clinical correlation is recommended. Lab Data Lab results reviewed: Yes I reviewed the patient's lab results. HPI General Mode of arrival: ambulatory . Date/Time Provider Initiated Documentation: 05/28/21 04:11 . Limitations to Documentation: no limitations . Information obtained by: patient . History of Present Illness 25 year old F presents to the emergency department with the chief complaint of abdomen pain, described as moderate and severe, with intensity rated at 9. Quality is described as stabbing, and is localized to the abdomen. Patient reports no radiation. Patient started experiencing this hour(s) (10) and it has been constant. No relieving factors improve symptom(s), No exacerbating factors reported . Patient notes denies fever/chills. Patient did receive the following treatments prior to arrival, none Related Data Home Medications Medication Instructions Recorded Confirmed albuterol sulfate 90 mcg/actuation 2 puff INHALATION Q4H PRN #1 11/03/19 12/30/20 aerosol inhaler inhaler ondansetron 4 mg PO Q8H PRN #30 tab 05/28/21 Previous Rx's Medication Instructions Recorded albuterol sulfate 90 mcg/actuation 2 puff INHALATION Q4H PRN #1 11/03/19 aerosol inhaler inhaler ondansetron 4 mg PO Q8H PRN #30 tab 05/28/21 Allergies Allergy/AdvReac Type Severity Reaction Status Date / Time No Known Drug Allergies Allergy Verified 02/13/21 10:54 General Stated Complaint: Abd Prob DIANE: 3 Review of Systems All systems reviewed & are unremarkable except as noted in HPI and below Constitutional Constitutional: Denies chills, Denies fever(s) and Denies weakness Cardiovascular Cardiovascular: Denies chest pain and Denies dyspnea Respiratory Respiratory: Denies cough and Denies dyspnea Gastrointestinal Gastrointestinal: Denies vomiting Musculoskeletal Musculoskeletal: Denies joint swelling Neurologic Neurologic: Denies weakness Psychiatric Psychiatric: Denies depression [facility] Medical History (Updated 05/28/21 @ 05:54 by Grant Grewal MD) Encounter for supervision of other normal , second trimester Encounter for supervision of other normal , third trimester Exposure to chlamydia (~04/2016) + CT probe. Rx with Azithromycin. 05/2016 TERESA neg. 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 Rx with Acyclovir. POTS (postural orthostatic tachycardia syndrome) 2018. S/p evaluation by cardiology RUQ abdominal pain Superficial thrombophlebitis Tachycardia with heart rate 121-140 beats per minute Threatened miscarriage in early Surgical History (Updated 12/31/20 @ 09:51 by Rashmi Amato MD) History of sterilization procedure 12/29/2020. At time of repeat delivery. Bilateral salpingectomy. S/P shoulder surgery Tonsillectomy and adenoidectomy (~2002) Family History (Updated 10/23/20 @ 08:47 by Daria Wu CNM) Father DVT (deep venous thrombosis) Paternal Grandfather Heart disease blood clot in heart Social History (Updated 12/31/20 @ 09:52 by Rashmi Amato MD) Smoking/Tobacco Use Status: Current every day Tobacco Type: cigarettes Smoking risk assessment performed?: Yes Alcohol Intake: current Alcohol Intake frequency: a few times a month Details: stopped w/ knowledge of . 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 Date GA/Weeks # Outcome Route Wgt Sex Labor Lgth Anesthes ia Location [facility] 03/12/17 41 No Successful 4706.021 g Male electiv e c/s for lga w/o labor [facility]. best 12/30/20 37 No Successful 4025.632 g Male Rashmi O'neela Delivery Date: 03/12/17 GDM, diet controlled. 10 days overdue, 10lbs 6 oz. by sono, scheduled primary C/S that day. Rena Wooten Delivery Date: 12/30/20 Ryder Abbe INSTRUCTIONAL TECHNOLOGY SPECIALIST,Eryn Exam Const General: no acute distress Orientation: alert HENMT Head: normal to inspection Ears: external ears normal General nose exam: external nose normal Mouth: moist mucous membranes Eyes General: appearance normal, both eyes and all related structures Neck Neck: normal visual inspection Resp Effort & Inspection: normal respiratory effort and able to speak in complete sentences Cardio Rate: regular rate GI Palpation: soft and tender Skin General skin exam: no rashes or lesions noted Neuro General: patient alert and patient oriented x3 Extrem General: normal to inspection Psych Mental Status: mental status grossly normal Course Vital Signs Vital signs: Vital Signs Temperature 36.8 C 05/28/21 04:13 Pulse 146 H 05/28/21 04:13 Respiratory Rate 18 05/28/21 04:13 Blood Pressure 122/73 05/28/21 04:13 Pulse Oximetry 99 05/28/21 04:13 Temperature 36.8 C 05/28/21 04:13 Pulse 146 H 05/28/21 04:13 Respiratory Rate 18 05/28/21 04:13 Respiratory Effort Non-Labored 05/28/21 04:20 Blood Pressure 122/73 05/28/21 04:13 Blood Pressure Position Sitting 05/28/21 04:13 Pulse Oximetry 99 05/28/21 04:13 Oxygen Delivery Method Room Air 05/28/21 04:13 Oxygen Flow Rate 0 05/28/21 04:13 Pain Level 9 05/28/21 04:21 Lab/Test Results Lab/Test Results: POC- Test(urine) Negative
[2021-05-28 04:30] LABS: Source Nasal/Nares
[2021-05-28 04:31] LABS: Abs Immature Grans 0.04 10^3/uL (0.0-0.06); Absolute Eosinophil Count 0.03 10^3/uL (0.0-0.7); Absolute Monocyte Count 1.03 10^3/uL (0.1-0.8); Basophils % 0.4; Eosinophils % 0.2; HCT 40.8 % (36.0-46.0); HGB 13.3 g/dL (11.2-15.7); Immature Grans % 0.2; MCH 28.3 pg (27.0-33.0); MCHC 32.6 % (32.0-36.0); MCV 86.8 fL (80-95); MPV 10.7 fL (8.0-11.0); Monocytes % 6.1; Neutrophils % 84.1; Nucleated RBC 0 %; Platelet Count 296 10^3/uL (130-400); RDW 14.1 % (11.7-14.6); WBC 16.82 10^3/uL (4.4-10.8)
[2021-05-28] MEDS: Normal Saline 1,000 ML 1000 ML IV (04:31)
[2021-05-28 04:32] VITALS: BP 116/63; PULSE 107; RESP 16; O2SAT 97
[2021-05-28 04:32] LABS: Bilirubin Negative (Negative); Blood Trace-intact (Negative); Clarity Clear (Clear); Glucose Negative (Negative); Ketones 15 mg/dL (Negative); Leukocyte Esterase Negative (Negative); Nitrite Negative (Negative); Specific Gravity >= 1.030 (1.005-1.025); Urobilinogen 0.2 EU/dL (Up TO 0.2)
[2021-05-28] MEDS: Ketorolac 15 MG/ML VIAL IVP ×2 (04:34→05:51)
[2021-05-28] MEDS: Ondansetron 4 MG/2 ML VIAL IVP (04:34)
[2021-05-28 04:37] LABS: Absolute Basophil Count 0.07 10^3/uL (0.0-0.2); Absolute Lymphocyte Count 1.51 10^3/uL (1.2-3.4); Absolute Neutrophil Count 14.15 10^3/uL (1.2-6.7)
[2021-05-28 04:41] LABS: Bacteria Rare HPF (Negative); C & S Indicated? No; Casts Negative LPF (Negative); Crystals Negative HPF (Negative); Epithelial Cells Rare HPF (Negative); Mucus Trace (Negative); WBC Negative HPF (0-5)
[2021-05-28 04:41] LABS: Magnesium 1.8 mg/dL (1.8-2.4)
[2021-05-28 04:45] LABS: ALT 15 U/L (14-59); AST 10 U/L (15-37); Albumin 4.4 g/dL (3.4-5.0); Alkaline Phosphatase 68 U/L (46-116); BUN 11 mg/dL (7-18); Bilirubin, Direct 0.3 mg/dL (0.0-0.2); Bilirubin, Total 2.3 mg/dL (0.2-1.0); CREATININE 0.7 mg/dL (0.55-1.02); Calcium 8.6 mg/dL (8.5-10.1); Chloride 104 mmol/L (98-107); Glucose 130 mg/dL (74-106); Lipase 86 U/L (73-393); Potassium 3.6 mmol/L (3.5-5.1); Sodium 138 mmol/L (136-145)
[2021-05-28] MEDS: Omnipaque 350 MG/ML 100 ML BTL IJ (04:53)
[2021-05-28] MEDS: Normal Saline Flush 10 ML SYR IVP (04:54)
[2021-05-28 05:25] LABS: COVID-19 PCR Negative (Negative)
--- NOTE | 2021-05-28 05:38 | DI.VRAD_ITS ---
PROCEDURE INFORMATION: Exam: CT Abdomen And Pelvis With Contrast Exam date and time: 05/28/2021 4:21 AM Age: 25 years old Clinical indication: Abdominal pain; Localized; Prior surgery; Surgery date: 1-6 months; Surgery type: C-sections, last one 5 months ago; Patient HX: Lower abdomen pain TECHNIQUE: Imaging protocol: Computed tomography of the abdomen and pelvis with contrast. Radiation optimization: All CT scans at this facility use at least one of these dose optimization techniques: automated exposure control; mA and/or kV adjustment per patient size (includes targeted exams where dose is matched to clinical indication); or iterative reconstruction. Contrast material: OMNIPAQUE 350; Contrast volume: 90 ml; Contrast route: INTRAVENOUS (IV); COMPARISON: CT CHEST PE ABD PELVIS W 02/05/2019 12:21 AM FINDINGS: Lungs: Lung bases clear. Liver: Normal appearing liver. Gallbladder and bile ducts: Normal appearing gallbladder. No calcified gallstones. No biliary dilatation. Pancreas: Normal appearing pancreas. Spleen: Indeterminate hypoattenuating splenic lesion, incompletely characterized but most likely a small cyst or hemangioma. Adrenal glands: Adrenal glands partially obscured but grossly unremarkable, as seen. Kidneys and ureters: Normal-appearing kidneys. Mild prominence of the right renal collecting system. No hydronephrosis on the left. Mild prominence of the proximal-mid ureters bilaterally, nonspecific, more prominent on the right, nonspecific. Distal ureters collapsed. Stomach and bowel: No oral contrast. Stomach partially decompressed. No small bowel dilatation to suggest obstruction. Fluid in the cecum and ascending colon. Transverse colon, descending colon, sigmoid colon, and rectum completely evacuated of fecal material, collapsed, and apparently thick-walled. Artifact of incomplete distention? Acute proctocolitis? Clinical correlation recommended. Appendix: Normal appendix. Intraperitoneal space: Small amount of free fluid in the deep pelvis. No free air. Vasculature: Normal caliber abdominal aorta. Lymph nodes: No pathologically enlarged mesenteric, retroperitoneal, or pelvic sidewall lymph nodes. Urinary bladder: Normal appearing urinary bladder. Reproductive: Anteverted uterus, normal in size. Symmetric prominence of the parauterine veins, possibly from the recent although pelvic congestion syndrome can also produce this appearance. Normal-sized ovaries. 2.0 cm x 1.5 cm peripherally enhancing right ovarian corpus luteum. Bones/joints: No acute fracture seen among the bones of the abdomen or pelvis. Soft tissues: Diffuse engorgement of the visualized breast tissue with an appearance characteristic of lactating breasts. Diastasis recti. Tiny fat-containing ventral hernia at the umbilicus, doubtful clinical significance. IMPRESSION: 1. 2.0 cm x 1.5 cm peripherally enhancing right ovarian corpus luteum with adjacent adnexal and cul-de-sac fluid. 2. Transverse colon, descending colon, sigmoid colon, and rectum almost completely evacuated of fecal material, collapsed, and apparently thick-walled. Artifact of incomplete distention or acute proctocolitis could produce this appearance. Clinical correlation is recommended. Dictated and Authenticated by: Kody Bess MD. Ordering:MIKALA Burns MD
[2021-05-28 05:55] VITALS: BP 117/76; PULSE 100; RESP 16; O2SAT 99
[2021-05-28 05:59] VITALS: BP 116/63; PULSE 107; RESP 16; TEMP 36.8; O2SAT 97
== END 2021-05-28 06:05 | disposition home or self-care (01) ==
PROVIDERS: Emergency Provider Emergency Medicine; PCP Nurse Practitioner
DX: R10.30 Lower abdominal pain, unspecified (principal)
CPT/HCPCS: 36415; 80053; 81025; 83690; 87635; 96361; 96374; 96375; 96376; 99285; 74177; 81003; 81015; 82248; 83735; 85025; 99284; J1885; J2405; J3490

== ENCOUNTER 2021-05-28 10:55 | Emergency (ER) | payer OTHER, MEDICAID, SELFPAY ==
[2021-05-28 11:23] VITALS: BP 115/66; PULSE 110; RESP 16; TEMP 37; O2SAT 98
--- NOTE | 2021-05-28 11:33 | DI.US_ITS ---
Exam(s) US ABDOMEN LIMITED EXAM: US ABDOMEN LIMITED CLINICAL HISTORY: RUQ abd pain, R/O Cholecystitis TECHNIQUE: Ultrasound abdomen performed using standard protocol. COMPARISON: CT CT ABDOMEN PELVIS W from 05/28/[address] ABDOMEN PELVIS W from 05/28/2021 FINDINGS: PANCREAS: Normal where visualized. LIVER: Normal. The liver measures 17.6 cm long. Hepatopedal flow in the Portal Vein. GALLBLADDER: No evidence of cholelithiasis. No evidence of wall thickening. No pericholecystic fluid identified. BILIARY SYSTEM: Common bile duct measures < 7 mm. No intrahepatic biliary ductal dilation. YARBROUGH'S SIGN: Negative. Right kidney: Normal in size. No evidence of renal calculi. No evidence of hydronephrosis. No renal mass or cyst identified. ASCITES: None seen. IMPRESSION: 1. Mildly enlarged liver otherwise negative examination. 2. Results of this exam have been verbally communicated with provider. DATA REPOSITORY:
--- NOTE | 2021-05-28 11:35 | ED.GENADUL_ITS ---
Discharge Plan Disposition Patient Disposition: HOME Condition: Stable Discharge Details Clinical Impression: Abdominal pain Primary Care Provider: Teri Gomez ED Provider: Aleida Martinez Home Meds and New Rx's Prescriptions: No Action albuterol sulfate 90 mcg/actuation HFA aerosol inhaler 2 puff Inhalation Q4H PRN Qty: 1 RF: 6 ondansetron 4 mg tablet,disintegrating 4 mg PO Q8H PRN (Reason: nausea and vomiting) Qty: 30 RF: 0 Discharge Instructions Instructions: Ovarian Cyst (ED), Abdominal Pain (ED) Additional Instructions: Keep previously scheduled appointment with women's wellness. Follow up with primary care provider in 3-5 days. Return to ED sooner if any worsening or concerns. Increase oral fluids. Please take Tylenol or Ibuprofen with food every 4-6 hours as needed for pain and swelling. At this time you have declined anything stronger for pain. Please continue to take the nausea medication as prescribed. Referrals: Teri Gomez, DI[employer]OND FINISHING SUPERVISOR [Primary Care Provider] - 5 days Medical Decision Making 25-year-old female presents to the ER for the second time today. Patient was seen earlier this morning with similar complaints complaining of mid epigastric to right upper quadrant abdominal pain with had a CT and some labs. Initially her labs did show some leukocytosis with white blood cell count of 16,000 she reports since being discharged from this department the pain has gotten worse is worsening with movement and walking. She denies any vomiting or trouble urinating. She is mildly tachycardic with a pulse rate of 110 upon initial examination. She does have some right CVA tenderness. CT prior to arrival showed some possibility of pelvic congestion syndrome. Labs are largely improved from encounter from earlier visit I blood cell count is 11.24 down from 16 this morning. I did discuss lab results with patient who verbalized understanding. She is still complaining of pain. Morphine and Zofran ordered at this time. She does have an appointment this with [facility]. I did review the CT result from earlier today and it shows a 2.2 cm right ovarian cyst and some free fluid in the pelvis. No other acute abdominal or pelvic process. Ultrasound result from today is within normal limits other than a slightly enlarged liver. FINDINGS: PANCREAS: Normal where visualized. LIVER: Normal. The liver measures 17.6 cm long. Hepatopedal flow in the Portal Vein. GALLBLADDER: No evidence of cholelithiasis. No evidence of wall thickening. No pericholecystic fluid identified. BILIARY SYSTEM: Common bile duct measures < 7 mm. No intrahepatic biliary ductal dilation. YARBROUGH'S SIGN: Negative. Right kidney: Normal in size. No evidence of renal calculi. No evidence of hydronephrosis. No renal mass or cyst identified. ASCITES: None seen. IMPRESSION: 1. Mildly enlarged liver otherwise negative examination. 2. Results of this exam have been verbally communicated with provider. Differential diagnosis includes but not limited to right ovarian cyst, irritable bowel syndrome, inflammatory bowel syndrome, gastroenteritis. Plan will be to have patient follow-up with primary care provider and/or keep appointment with women's wellness on . We will send patient home with some pain medications. HPI General Mode of arrival: ambulatory . Date/Time Provider Initiated Documentation: 05/28/21 11:23 . Limitations to Documentation: no limitations . Information obtained by: patient, RN notes reviewed and old records reviewed . HPI Narrative: 25-year-old female presents to the ER for the second time today. Patient was seen earlier this morning with similar complaints complaining of mid epigastric to right upper quadrant abdominal pain with had a CT and some labs. Initially her labs did show some leukocytosis with white blood cell count of 16,000 she reports since being discharged from this department the pain has gotten worse is worsening with movement and walking. She denies any vomiting or trouble urinating. She is mildly tachycardic with a pulse rate of 110 upon initial examination. She does have some right CVA tenderness. CT prior to arrival showed some possibility of pelvic congestion syndrome. Related Data Home Medications Medication Instructions Recorded Confirmed albuterol sulfate 90 mcg/actuation 2 puff INHALATION Q4H PRN #1 11/03/19 05/28/21 aerosol inhaler inhaler ondansetron 4 mg PO Q8H PRN #30 tab 05/28/21 05/28/21 Previous Rx's Medication Instructions Recorded albuterol sulfate 90 mcg/actuation 2 puff INHALATION Q4H PRN #1 11/03/19 aerosol inhaler inhaler ondansetron 4 mg PO Q8H PRN #30 tab 05/28/21 Allergies Allergy/AdvReac Type Severity Reaction Status Date / Time No Known Drug Allergies Allergy Verified 05/28/21 11:30 General Stated Complaint: Abd Prob DIANE: 3 Review of Systems All systems reviewed & are unremarkable except as noted in HPI and below Gastrointestinal Gastrointestinal: Reports abdominal pain and Reports cramping PFSH Medical History Encounter for supervision of other normal , second trimester Encounter for supervision of other normal , third trimester Exposure to chlamydia (~04/2016) + CT probe. Rx with Azithromycin. 05/2016 TERESA neg. 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 Rx with Acyclovir. POTS (postural orthostatic tachycardia syndrome) 2018. S/p evaluation by cardiology RUQ abdominal pain Superficial thrombophlebitis Tachycardia with heart rate 121-140 beats per minute Threatened miscarriage in early Surgical History History of sterilization procedure 12/29/2020. At time of repeat delivery. Bilateral salpingectomy. S/P shoulder surgery Tonsillectomy and adenoidectomy (~2002) Family History Father DVT (deep venous thrombosis) Paternal Grandfather Heart disease blood clot in heart Social History Smoking/Tobacco Use Status: Current every day Tobacco Type: cigarettes Smoking risk assessment performed?: Yes Alcohol Intake: current Alcohol Intake frequency: a few times a month Details: stopped w/ knowledge of . 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 Date GA/Weeks # Outcome Route Wgt Sex Labor Lgth Anesthes ia Location [facility] 03/12/17 41 No Successful 4706.021 g Male electiv e c/s for lga w/o labor [facility]. best 12/30/20 37 No Successful 4025.632 g Male Rashmi Blakely'neela Delivery Date: 03/12/17 GDM, diet controlled. 10 days overdue, 10lbs 6 oz. by sono, scheduled primary C/S that day. Rena Wooten Delivery Date: 12/30/20 Ryder Mcadams INTERNET MEDIA PLANNER,Eryn Exam Narrative Exam Narrative: Constitutional: Alert and oriented x3. Appears stated age. Normal body habitus. Head: Normocephalic, no trauma. Eyes: Pupils PERRLA, Red reflex noted, EOM's intact. Eyelids symmetrical without lesions, discharge, or swelling. ENT: Bilateral TM's WNL, External ear normal to inspection, no mastoid TTP, swelling, or erythema, Nasal turbinates WNL, no nasal discharge. Normal dentition, Posterior pharynx WNL, no exudate. Chest: RRR, Normal S1, S2, distal pulses intact. Resp: Lungs clear to auscultation bilaterally, no wheezes, rales, or rhonchi. Abdomen: Soft, nondistended tender with palpation midepigastrium and right upper quadrant. Right CVA tenderness with palpation. Musculoskeletal: Normal gait, 5/5 strength to all four extremities. Skin: No suspicious rashes or lesions. Capillary refill less than 2 sec. Neurologic: Cranial nerves II-XII intact. Alert and oriented x 3. DTR's intact. Hematologic/Lymphatic: No ecchymosis, no lymphadenopathy. Course Vital Signs Vital signs: Vital Signs Temperature 37.0 C 05/28/21 11:23 Pulse 110 H 05/28/21 11:23 Respiratory Rate 16 05/28/21 11:23 Blood Pressure 115/66 05/28/21 11:23 Pulse Oximetry 98 05/28/21 11:23 Temperature 37.0 C 05/28/21 11:23 Temperature Source Skin 05/28/21 11:23 Pulse 110 H 05/28/21 11:23 Respiratory Rate 16 05/28/21 11:23 Blood Pressure 115/66 05/28/21 11:23 Blood Pressure Position Sitting 05/28/21 11:23 Pulse Oximetry 98 05/28/21 11:23 Oxygen Delivery Method Room Air 05/28/21 11:23 Oxygen Flow Rate 0 05/28/21 11:23 Pain Level 9 05/28/21 11:23
[2021-05-28 12:57] LABS: Abs Immature Grans 0.03 10^3/uL (0.0-0.06); Absolute Basophil Count 0.03 10^3/uL (0.0-0.2); Absolute Eosinophil Count 0.02 10^3/uL (0.0-0.7); Absolute Lymphocyte Count 1.63 10^3/uL (1.2-3.4); Absolute Monocyte Count 0.83 10^3/uL (0.1-0.8); Basophils % 0.3; Eosinophils % 0.2; HGB 12.3 g/dL (11.2-15.7); Immature Grans % 0.3; Lymphocytes % 14.5; MCH 28.1 pg (27.0-33.0); MCHC 32.4 % (32.0-36.0); MCV 86.8 fL (80-95); MPV 11.1 fL (8.0-11.0); Monocytes % 7.4; Neutrophils % 77.3; Nucleated RBC 0 %; Platelet Count 249 10^3/uL (130-400); RBC 4.38 10^6/uL (3.93-5.22); RDW 14.4 % (11.7-14.6); RDW-SD 45.6 fL; WBC 11.24 10^3/uL (4.4-10.8)
[2021-05-28 12:58] LABS: Absolute Neutrophil Count 8.69 10^3/uL (1.2-6.7)
[2021-05-28 13:11] LABS: ALT 21 U/L (14-59); AST 6 U/L (15-37); Alkaline Phosphatase 66 U/L (46-116); Anion Gap 11.7 mmol/L (3-11); BUN 7 mg/dL (7-18); Bilirubin, Total 2.8 mg/dL (0.2-1.0); CO2 25.3 mmol/L (21.0-32.0); CREATININE 0.7 mg/dL (0.55-1.02); Calcium 8.4 mg/dL (8.5-10.1); Chloride 105 mmol/L (98-107); Glucose 89 mg/dL (74-106); Lipase 53 U/L (73-393); Potassium 3.4 mmol/L (3.5-5.1); Sodium 142 mmol/L (136-145); Total Protein 7.3 g/dL (6.4-8.2)
[2021-05-28] MEDS: Ondansetron 4 MG/2 ML VIAL IVP (13:32)
== END 2021-05-28 14:31 | disposition home or self-care (01) ==
PROVIDERS: Emergency Provider Registered Nurse Emergency; PCP Nurse Practitioner
DX: R10.9 Unspecified abdominal pain (principal); R10.11 Right upper quadrant pain
CPT/HCPCS: 80053; 83690; 96374; 96375; 99284; 76705; 83735; 85025; 99283; J2270; J2405

== ENCOUNTER 2021-11-27 14:11 | Emergency (ER) | payer BC, MEDICAID, SELFPAY ==
[2021-11-27 14:22] VITALS: BP 121/66; PULSE 81; RESP 16; TEMP 36.4; O2SAT 100
--- NOTE | 2021-11-27 15:00 | DI.CT_ITS ---
Exam(s) CT ABDOMEN PELVIS W EXAM: CT ABDOMEN PELVIS W INDICATION: RLQ pain, concern for appi v adnexal. COMPARISON: CT CT ABDOMEN PELVIS W from 05/28/2021 TECHNIQUE: FINDINGS: CT examination of the abdomen and pelvis was performed with a bolus infusion of 100 cc of Omnipaque 3 50. Images obtained through the lung bases are unremarkable. The liver is unremarkable in appearance. Gallbladder and bile ducts are CT normal. Pancreas appears normal. Spleen is unremarkable in appearance. Adrenals appear normal. The kidneys are unremarkable with no evidence of hydronephrosis, nephrolithiasis, or renal mass.. Ur inary bladder unremarkable. Abdominal aorta is of normal diameter and no major vascular abnormality is seen. No abdominal wall hernia. No abdominal or pelvic adenopathy. Uterus and left ovary unremarkable by CT criteria. Possible a partially collapsed 2.4 cm right ovari an cyst. Free fluid noted in the pelvis.. Appendix is normal. No evidence of diverticulitis or bowel obstruction. IMPRESSION: Question of a leaking or ruptured right ovarian cyst, additional evaluation with pelvic ultrasound ma y be obtained if clinically indicated.. RADIATION DOSE DELIVERED: 595.95mGy.cm Total DLP 595.95mGy.cm Total DLP !Error CTDIvol RADIATION OPTIMIZATION: All CT scans at this facility use at least one of these dose optimization te chniques: automated exposure control; mA and/or kV adjustment per patient size (includes targeted exa ms where dose is matched to clinical indication); or iterative reconstruction.
[2021-11-27 15:11] LABS: Abs Immature Grans 0.02 10^3/uL (0.0-0.06); Absolute Basophil Count 0.06 10^3/uL (0.0-0.2); Absolute Lymphocyte Count 2.42 10^3/uL (1.2-3.4); Absolute Monocyte Count 0.71 10^3/uL (0.1-0.8); Basophils % 0.8; Eosinophils % 1.3; HGB 13.1 g/dL (11.2-15.7); Immature Grans % 0.3; Lymphocytes % 32.7; MCHC 31.2 % (32.0-36.0); MCV 83.5 fL (80-95); MPV 11.5 fL (8.0-11.0); Monocytes % 9.6; Neutrophils % 55.3; Nucleated RBC 0 %; Platelet Count 342 10^3/uL (130-400); RBC 5.03 10^6/uL (3.93-5.22); RDW 17.6 % (11.7-14.6); RDW-SD 53.5 fL; WBC 7.41 10^3/uL (4.4-10.8)
--- NOTE | 2021-11-27 15:13 | ED.GENADUL_ITS ---
Discharge Plan Disposition Patient Disposition: HOME Condition: Improving Discharge Details Clinical Impression: Abdominal pain Primary Care Provider: Teri Gomez ED Provider: Gaurav Almodovar Home Meds and New Rx's Prescriptions: Continued tretinoin [Retin-A] 0.05 % cream 1 applic topical QHS 0RF Rx Instructions: pea size amt to face nightly per note dated 10/11/20 [facility] clindamycin-benzoyl peroxide [Benzaclin] 1-5 % gel 1 applic topical DAILY 0RF Rx Instructions: apply dime sized amt to face qam after washing. note 10/11/20 [facility] [place] dextroamphetamine-amphetamine [Adderall] 5 mg tablet 20 mg PO BID 0RF Label Comments: 09/10/21 [facility] noted 10/29/21 - patient states she is taking 20 mg BID Discharge Instructions Instructions: Abdominal Pain (ED) Additional Instructions: Please return to the emergency department for any worsening abdominal discomfort, nausea vomiting, vaginal bleeding passing out or any other abnormal symptomatology. I would recommend that you obtain a pelvic ultrasound and you can return to the emergency department for this testing if you feel comfortable, otherwise follow-up with your [employer] SCIENCES [employer] SCIENTIST. Medical Decision Making 26-year-old female history of elective tubal ligation, presents with right lower quadrant abdominal discomfort over the last several hours, associate with nausea no vomiting, nonperitoneal however is tender in the right lower quadrant without guarding or rebounding, hemodynamically stable nontoxic, consider ovarian cyst versus appendicitis versus mesenteric adenitis versus colitis or enteritis versus less likely cardiac or aortic in nature versus less likely kidney stone or UTI/pyelonephritis. Screening lab fluids analgesia imaging close reassessment disposition pending reassessment and imaging result 18: 14 patient resting comfortably no acute distress no nausea or vomiting hemodynamically stable. Labs unremarkable. CT abdomen pelvis read as negative. However upon my review there does appear to be a structure in the right lower quadrant/adnexal region, does have some enhancement and hypoechoic density to it consider hemorrhagic cyst versus ovarian cyst versus less likely abscess or appendicitis. Discussed this finding with the patient. Patient still would like to go home. Given strict return precautions return for further imaging specifically ultrasound of the pelvis. Given strict return precautions for any signs of bleeding worsening abdominal pain syncope or abnormal symptomatology. Lab Data Lab results narrative: Laboratory Tests Range/Units 11/27/21 11/27/21 11/27/21 14:43 14:43 14:43 WBC (4.4-10.8) 10^3/uL 7.41 RBC (3.93-5.22) 10^6/uL 5.03 Hgb (11.2-15.7) g/dL 13.1 Hct (36.0-46.0) % 42.0 MCV (80-95) fL 83.5 MCH (27.0-33.0) pg 26.0 L MCHC (32.0-36.0) % 31.2 L RDW (11.7-14.6) % 17.6 H Plt Count (130-400) 10^3/uL 342 MPV (8.0-11.0) fL 11.5 H Immature Gran % 0.3 Neutrophils % 55.3 Lymphocytes % 32.7 Monocytes % 9.6 Eosinophils % 1.3 Basophils % 0.8 Nucleated RBC % % 0 Absolute Neutrophils (1.2-6.7) 10^3/uL 4.10 Absolute Lymphocytes (1.2-3.4) 10^3/uL 2.42 Absolute Monocytes (0.1-0.8) 10^3/uL 0.71 Absolute Eosinophils (0.0-0.7) 10^3/uL 0.10 Absolute Basophils (0.0-0.2) 10^3/uL 0.06 Sodium (136-145) mmol/L 139 Potassium (3.5-5.1) mmol/L 4.0 Chloride (98-107) mmol/L 103 Carbon Dioxide (21.0-32.0) mmol/L 24.5 Anion Gap (3-11) mmol/L 11.5 H BUN (7-18) mg/dL 8 Creatinine (0.55-1.02) mg/dL 0.6 Estimated GFR/1.73 m2 (mL/min/1.73m2) >= 60.00 Glucose (74-106) mg/dL 101 Calcium (8.5-10.1) mg/dL 8.7 Total Bilirubin (0.2-1.0) mg/dL 1.8 H AST (15-37) U/L 16 ALT (14-59) U/L 17 Alkaline Phosphatase (46-116) U/L 60 Total Protein (6.4-8.2) g/dL 8.1 Albumin (3.4-5.0) g/dL 4.4 Beta HCG, Quant (1-3) mIU/mL < 1 L Urine Color (Yellow) Urine Clarity (Clear) Urine pH (5-8) Ur Specific Kingsley (1.005-1.025) Urine Protein (Negative) mg/dL Urine Ketones (Negative) mg/dL Urine Blood (Negative) Urine Nitrite (Negative) Urine Bilirubin (Negative) Urine Urobilinogen (Up TO 0.2) EU/dL Ur Leukocyte Esterase (Negative) Urine Glucose (Negative) mg/dL Range/Units 11/27/21 16:20 WBC (4.4-10.8) 10^3/uL RBC (3.93-5.22) 10^6/uL Hgb (11.2-15.7) g/dL Hct (36.0-46.0) % MCV (80-95) fL MCH (27.0-33.0) pg MCHC (32.0-36.0) % RDW (11.7-14.6) % Plt Count (130-400) 10^3/uL MPV (8.0-11.0) fL Immature Gran % Neutrophils % Lymphocytes % Monocytes % Eosinophils % Basophils % Nucleated RBC % % Absolute Neutrophils (1.2-6.7) 10^3/uL Absolute Lymphocytes (1.2-3.4) 10^3/uL Absolute Monocytes (0.1-0.8) 10^3/uL Absolute Eosinophils (0.0-0.7) 10^3/uL Absolute Basophils (0.0-0.2) 10^3/uL Sodium (136-145) mmol/L Potassium (3.5-5.1) mmol/L Chloride (98-107) mmol/L Carbon Dioxide (21.0-32.0) mmol/L Anion Gap (3-11) mmol/L BUN (7-18) mg/dL Creatinine (0.55-1.02) mg/dL Estimated GFR/1.73 m2 (mL/min/1.73m2) Glucose (74-106) mg/dL Calcium (8.5-10.1) mg/dL Total Bilirubin (0.2-1.0) mg/dL AST (15-37) U/L ALT (14-59) U/L Alkaline Phosphatase (46-116) U/L Total Protein (6.4-8.2) g/dL Albumin (3.4-5.0) g/dL Beta HCG, Quant (1-3) mIU/mL Urine Color (Yellow) Yellow Urine Clarity (Clear) Clear Urine pH (5-8) 6.5 Ur Specific Kingsley (1.005-1.025) 1.020 Urine Protein (Negative) mg/dL Negative Urine Ketones (Negative) mg/dL Negative Urine Blood (Negative) Negative Urine Nitrite (Negative) Negative Urine Bilirubin (Negative) Negative Urine Urobilinogen (Up TO 0.2) EU/dL 0.2 Ur Leukocyte Esterase (Negative) Negative Urine Glucose (Negative) mg/dL Negative HPI General Date/Time Provider Initiated Documentation: 11/27/21 14:29 . HPI Narrative: 26-year-old female presents with right lower quadrant discomfort that began earlier this afternoon, nausea without vomiting, no diarrhea or constipation, endorses last menstrual period was 1 month ago. Surgical history positive for elective tubal ligation Related Data Home Medications Medication Instructions Recorded Confirmed clindamycin 1 %-benzoyl peroxide 5 1 applic TOPICAL DAILY 10/12/21 11/27/21 % topical gel (Benzaclin) tretinoin 0.05 % topical cream 1 applic TOPICAL QHS 10/12/21 11/27/21 (Retin-A) dextroamphetamine-amphetamine 5 mg 20 mg PO BID 10/29/21 11/27/21 tablet (Adderall) Allergies Allergy/AdvReac Type Severity Reaction Status Date / Time No Known Drug Allergies Allergy Verified 11/27/21 14:26 General Stated Complaint: Abd Prob DIANE: 3 Review of Systems Narrative: Review of Systems Constitutional: negative Eyes: negative ENT: negative Cardiovascular: negative Respiratory: negative Gastrointestinal: Abdominal pain : negative Musculoskeletal: negative Skin: negative Neurologic: negative Psych: negative PFSH All Active Problems (Updated 11/27/21 @ 18:19 by Gaurav Almodovar MD) Abdominal pain (Acute) Acne vulgaris (Acute) Anxiety state, unspecified (Acute) 09/10/21 Attention deficit disorder predominant inattentive type (Acute) 09/10/21 [facility] Visit Freckles (Acute) Impulsive (Acute) Concentration deficit (Acute) Abdominal pain (Acute) Macromastia (Acute) 04/16/21[place] [place] plastic surg note Family history of DVT (Acute) Superficial thrombophlebitis (Acute) Imbalance (Acute) Frontal headache (Acute) Dizziness (Acute) Nausea (Acute) Heavy menses (Acute) History of anemia (Acute) Chest pain (Acute) Palpitations ([place]ute[place] [facility] [place] Tachycardia (Chronic) 06/03/19 [facility] [place] [facility] 08/06/19- probable postural orthostatic tacycardia. [facility] [place] cardiology Psoriasis (Acute 05/15/18) History of positive test for herpes simplex virus type 1 by PCR (Acute 02/03/17) HSV-1 (herpes simplex virus 1) infection (Acute 05/09/16) Exercise-induced asthma (Acute 05/08/17) Contraception (Acute 12/30/14) 12/29/2020 bilateral salpingectomy. Acne (Acute 11/04/12) Medical History (Updated 11/27/21 @ 18:19 by Gaurav Almodovar MD) BV (bacterial vaginosis) (05/09/16) Exposure to chlamydia (~04/2016) + CT probe. Rx with Azithromycin. 05/2016 [facility] neg. Exposure to chlamydia (05/10/16) HSV-1 (herpes simplex virus 1) infection 04/2016. initial exposure. vulva. Rx with Acyclovir. Irritable bowel syndrome (IBS) (03/13/15) seen by [facility] [place] [facility]. rec trial of benadryl POTS (postural orthostatic tachycardia syndrome) 2018. S/p evaluation by cardiology Tachycardia with heart rate 121-140 beats per minute Surgical History (Updated 11/13/21 @ 09:17 by Dejah Chow RN) H/O bilateral breast reduction surgery (~08/06/21) History of sterilization procedure 12/29/2020. At time of repeat delivery. Bilateral salpingectomy. S/P shoulder surgery Tonsillectomy and adenoidectomy (~2002) Family History Father DVT (deep venous thrombosis) Paternal Grandfather Heart disease blood clot in heart Social History (Updated 07/12/21 @ 13:31 by Celine Smith RN) Smoking/Tobacco Use Status: Current every day Tobacco Type: cigarettes Tobacco: How many years used: 4 Second Hand Exposure: No Smoking risk assessment performed?: Yes Alcohol Intake: current Alcohol Intake frequency: a few times a month Alcohol type: wine Details: stopped w/ knowledge of . 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 Date GA/Weeks # Outcome Route Wgt Sex Labor Lgth Anesthes ia Location [facility] 03/12/17 41 No Successful 4706.021 g Male electiv e c/s for lga w/o labor [facility] dr. best 12/30/20 37 No Successful 4025.632 g Male Rashmi Ovivian Delivery Date: 03/12/17 Last Updated by: Rena Wooten GDM, diet controlled. 10 days overdue, 10lbs 6 oz. by sono, scheduled primary C/S that day. Delivery Date: 12/30/20 Last Updated by: KAYLA Mishra Exam Narrative Exam Narrative: Physical Examination General: alert, awake, cooperative, resting comfortably, no acute distress HEENT: normocephalic, atraumatic; PERRL, EOM intact, conjunctiva normal; no nasal discharge; moist mucous membranes, oral and pharyngeal mucosa normal, tolerating secretions Neck: supple, trachea midline; full ROM Chest: normal to inspection Respiratory: normal respiratory effort, speaking in full sentences, clear to auscultation, no wheezing, rales or rhonchi Cardiac: regular rate, regular rhythm, S1S2 intact, no murmurs rubs or gallops GI: abdomen soft, tenderness in the right lower quadrant without guarding or rebounding; non-distended; no palpable mass or hepatosplenomegaly Skin: no lesions, rashes or trauma appreciated Neuro: AAOx3, normal speech, moving all extremities Psych: Appropriate mood and affect Course Vital Signs Vital signs: Vital Signs Temperature 36.4 C L 11/27/21 14:22 Pulse 81 11/27/21 14:22 Respiratory Rate 16 11/27/21 14:22 Blood Pressure 121/66 11/27/21 14:22 Pulse Oximetry 100 11/27/21 14:22 Temperature 36.4 C L 11/27/21 14:22 Temperature Source Skin 11/27/21 14:22 Pulse 81 11/27/21 14:22 Respiratory Rate 16 11/27/21 14:22 Respiratory Effort 11/27/21 14:22 Blood Pressure 121/66 11/27/21 14:22 Blood Pressure Position Sitting 11/27/21 14:22 Pulse Oximetry 100 11/27/21 14:22 Oxygen Delivery Method Room Air 11/27/21 14:22 Oxygen Flow Rate 0 11/27/21 14:22 Pain Level 9 11/27/21 14:22 Lab/Test Results Lab/Test Results: Laboratory Tests Range/Units 11/27/21 14:43 WBC (4.4-10.8) 10^3/uL 7.41 RBC (3.93-5.22) 10^6/uL 5.03 Hgb (11.2-15.7) g/dL 13.1 Hct (36.0-46.0) % 42.0 MCV (80-95) fL 83.5 MCH (27.0-33.0) pg 26.0 L MCHC (32.0-36.0) % 31.2 L RDW (11.7-14.6) % 17.6 H Plt Count (130-400) 10^3/uL 342 MPV (8.0-11.0) fL 11.5 H Immature Gran % 0.3 Neutrophils % 55.3 Lymphocytes % 32.7 Monocytes % 9.6 Eosinophils % 1.3 Basophils % 0.8 Nucleated RBC % % 0 Absolute Neutrophils (1.2-6.7) 10^3/uL 4.10 Absolute Lymphocytes (1.2-3.4) 10^3/uL 2.42 Absolute Monocytes (0.1-0.8) 10^3/uL 0.71 Absolute Eosinophils (0.0-0.7) 10^3/uL 0.10 Absolute Basophils (0.0-0.2) 10^3/uL 0.06 PAWSS Have you Been Recently Intoxicated or Drunk Within the Last 30 days?: Yes Have you Ever Experienced Previous Episodes of Alcohol Withdrawal?: No Have you ever Experienced Withdrawal Seizures?: No Have you ever Experienced Delirium Tremens(DT)s?: No Have you ever undergone Alcohol Rehabilitation Treatment (i.e, inpt ot outpatient treatment programs)?: No Have you ever Experienced Blackouts?: No Have you ever Combined Alcohol with other Downers within the last 90 days?: No Have you ever Combined Alcohol with any other Substance of Abuse during the last 90 days?: No Positive Blood Alcohol level on Presentation? [PCS.BAL]: No Evidence of Increased Autonomic Activity (i.e. HR>120, tremor, sweating, agitation, nausea)?: No Result: 1
[2021-11-27] MEDS: Ondansetron 4 MG/2 ML VIAL IVP (15:14)
[2021-11-27] MEDS: Normal Saline 1,000 ML 1000 ML IV (15:14)
[2021-11-27 15:29] LABS: ALT 17 U/L (14-59); AST 16 U/L (15-37); Albumin 4.4 g/dL (3.4-5.0); Alkaline Phosphatase 60 U/L (46-116); Anion Gap 11.5 mmol/L (3-11); BUN 8 mg/dL (7-18); Bilirubin, Total 1.8 mg/dL (0.2-1.0); CO2 24.5 mmol/L (21.0-32.0); CREATININE 0.6 mg/dL (0.55-1.02); Calcium 8.7 mg/dL (8.5-10.1); Chloride 103 mmol/L (98-107); Glucose 101 mg/dL (74-106); Sodium 139 mmol/L (136-145); Total Protein 8.1 g/dL (6.4-8.2)
[2021-11-27 15:39] LABS: HCG Quant, Pregnancy < 1 mIU/mL (1-3)
[2021-11-27 16:38] LABS: Bilirubin Negative (Negative); Blood Negative (Negative); Clarity Clear (Clear); Glucose Negative (Negative); Ketones Negative (Negative); Leukocyte Esterase Negative (Negative); Nitrite Negative (Negative); Urobilinogen 0.2 EU/dL (Up TO 0.2); pH 6.5 (5-8)
[2021-11-27] MEDS: Omnipaque 350 MG/ML 100 ML BTL IV (17:10)
[2021-11-27] MEDS: Normal Saline Flush 10 ML SYR IVP ×2 (17:14→17:16)
--- NOTE | 2021-11-27 17:46 | DI.VRAD_ITS ---
PROCEDURE INFORMATION: Exam: CT Abdomen And Pelvis With Contrast Exam date and time: 11/27/2021 3:05 PM Age: 26 years old Clinical indication: Abdominal pain; Localized; Right lower quadrant (rlq); Prior surgery; Surgery date: 6+ months; Surgery type: ; Additional info: Acute rlq pain TECHNIQUE: Imaging protocol: Computed tomography of the abdomen and pelvis with contrast. Radiation optimization: All CT scans at this facility use at least one of these dose optimization techniques: automated exposure control; mA and/or kV adjustment per patient size (includes targeted exams where dose is matched to clinical indication); or iterative reconstruction. Contrast material: OMNI 350; Contrast volume: 100 ml; Contrast route: INTRAVENOUS (IV); COMPARISON: CT ABDOMEN PELVIS W 05/28/2021 4:48 AM FINDINGS: Lungs: Lung bases are clear. Liver: Normal. No mass. Gallbladder and bile ducts: Normal. No calcified stones. No ductal dilation. Pancreas: Normal. No ductal dilation. Spleen: Normal. No splenomegaly. Adrenal glands: Normal. No mass. Kidneys and ureters: Normal. No hydronephrosis. Stomach and bowel: Unremarkable. No obstruction. No mucosal thickening. Appendix: No evidence of appendicitis. Intraperitoneal space: Unremarkable. No free air. No significant fluid collection. Vasculature: Unremarkable. No abdominal aortic aneurysm. Lymph nodes: Unremarkable. No enlarged lymph nodes. Urinary bladder: Unremarkable as visualized. Reproductive: Unremarkable as visualized. Bones/joints: Unremarkable. No acute fracture. Soft tissues: Unremarkable. IMPRESSION: No evidence of acute abdominal or pelvic process. Dictated and Authenticated by: Jaquan Douglas MD. Ordering:PBRUNILDA Nolasco MD
[2021-11-27 18:18] VITALS: BP 123/76; PULSE 94; TEMP 36.6; O2SAT 98
[2021-11-27 18:43] VITALS: BP 123/76; PULSE 94; RESP 16; TEMP 36.6; O2SAT 98
== END 2021-11-27 18:43 | disposition home or self-care (01) ==
PROVIDERS: Emergency Provider Emergency Medicine; PCP Nurse Practitioner
DX: R10.31 Right lower quadrant pain (principal); R11.0 Nausea
CPT/HCPCS: 36415; 80053; 96361; 96374; 99285; 74177; 81003; 84702; 85025; 99284; J2270; J2405; J3490

== ENCOUNTER 2022-06-06 12:18 | Outpatient (CLI) | payer BC, MEDICAID, SELFPAY ==
[2022-06-10 14:19] LABS: TB Interpretation Negative (Negative); TB2 Ag minus Nil 0.02 IU/mL
== END 2022-06-06 12:19 | disposition home or self-care (01) ==
LOC: LBO 12:20
PROVIDERS: PCP Nurse Practitioner; Visit Provider Nurse Practitioner
DX: Z11.1 Encounter for screening for respiratory tuberculosis (principal)
CPT/HCPCS: 36415; 86480

== ENCOUNTER 2023-03-27 06:14 | Emergency (ER) | payer BC, MEDICAID, SELFPAY ==
[2023-03-27 06:19] VITALS: BP 123/73; PULSE 97; RESP 18; TEMP 36.6; O2SAT 98
--- NOTE | 2023-03-27 06:27 | W.ED.GENAD ---
Discharge Plan Disposition Patient Disposition: Home Discharge Details Clinical Impression: Acute cystitis Primary Care Provider: Teri Gomez ED Provider: Jorge Dye Home Meds and New Rx's Prescriptions: New cephalexin 250 mg capsule 250 mg PO QID Qty: 20 0RF Continued tretinoin [Retin-A] 0.05 % cream 1 applic topical QHS Rx Instructions: pea size amt to face nightly per note dated 10/11/20 [facility] clindamycin-benzoyl peroxide [Benzaclin] 1-5 % gel 1 applic topical DAILY Rx Instructions: apply dime sized amt to face qam after washing. note 10/11/20 [facility] D[facility]gc dextroamphetamine-amphetamine [Adderall] 5 mg tablet 20 mg PO BID Patient Comments: 09/10/21 [facility] noted 10/29/21 - patient states she is taking 20 mg BID quetiapine [Seroquel] 50 mg tablet 50 mg PO QHS Patient Comments: 01/30/22 noted valacyclovir 500 mg tablet 500 mg PO Q12H Qty: 10 4RF Discharge Instructions Additional Instructions: You were seen in the emergency department for your burning while urinating. Your symptoms are most consistent with a urinary tract infection for which you are receiving antibiotics that you should take as directed. As we discussed, if you develop fevers nausea vomiting, cannot tolerate your antibiotics, or have any other concerns please return to the emergency department. Medical Decision Making This is an overall very well-appearing normothermic and not tachycardic 27-year-old female with dysuria and urgency most consistent with UTI. She has had no fevers nor chills nor any CVA tenderness to suggest pyelonephritis. She has a soft nontender abdomen so I am not concern for intra-abdominal infection. No right lower quadrant tenderness to suggest appendicitis. No left lower quadrant nor diarrhea to suggest diverticulitis. I considered sexually transmitted infection however the patient denies abnormal vaginal discharge and feels that her symptoms are not similar to prior symptoms of sexually-transmitted infections. No pain out of proportion to suggest necrotizing soft tissue infection. No trauma to suggest abdominal wall hematoma. Not recently to suggest pelvic thrombophlebitis. No rash to abdomen to suggest zoster. No abdominal pain to suggest ruptured abdominal aortic aneurysm. No history of ureterolithiasis nor unilateral pain to suggest ureterolithiasis. Patient does not have a complicated urinary tract infections given duration of time since her symptoms began, less than 7 days, her lack of diabetes, and the fact she has not recently had any urinary tract infections. I considered sepsis however the patient's vitals do not meet SIRS criteria and she is quite well-appearing overall so did not obtain a lactate treat empirically with broad-spectrum antibiotics nor did I draw blood cultures. Based on the patient's age and symptoms alone will initiate treatment with cephalexin. Will obtain urine to ensure that patient is not . 6:41 AM Urine negative. We will initiate treatment with cephalexin 250 mg 4 times daily for 5 days. Leukoesterase positive urinalysis with moderate blood. Will wait on microscopy. Nitrite negative. 7:18 AM On microscopy, patient had leuk esterase with hematuria consistent with urinary tract infection. I gave her return indications including inability to tolerate p.o. as result of nausea and vomiting and any fevers. I treated her initially with cephalexin in the ED. HPI General Date/Time Provider Initiated Documentation: 03/27/23 06:27. HPI Narrative: This is a 27-year-old female arriving to the emergency department via private vehicle in the setting of urinary frequency and dysuria. Patient reports that her symptoms began 2 mornings ago. She tried to flush her system by drinking lots of water. She reported that this helped slightly however her symptoms worsened this morning with suprapubic abdominal pain which led her to come to the emergency department. She has had no urinary tract infections for the past 8 or 9 years. She denies abnormal vaginal discharge. She is sexually active with a single male partner. He has had no nausea vomiting fevers chills chest pain or shortness of breath. She taken no falls on abdomen. She has never had a urinary tract infection. Related Data Home Medications Medication Instructions Recorded Confirmed clindamycin 1 %-benzoyl peroxide 5 1 applic topical DAILY 10/12/21 03/21/22 % topical gel (Benzaclin) tretinoin 0.05 % topical cream 1 applic topical QHS 10/12/21 03/21/22 (Retin-A) dextroamphetamine-amphetamine 5 mg 20 mg PO BID 10/29/21 03/21/22 tablet (Adderall) quetiapine 50 mg tablet (Seroquel) 50 mg PO QHS 02/07/22 03/21/22 valacyclovir 500 mg tablet 500 mg PO Q12H #10 tabs 02/10/23 cephalexin 250 mg capsule 250 mg PO QID #20 caps 03/27/23 Previous Rx's Medication Instructions Recorded valacyclovir 500 mg tablet 500 mg PO Q12H #10 tabs 02/10/23 cephalexin 250 mg capsule 250 mg PO QID #20 caps 03/27/23 Allergies Allergy/AdvReac Type Severity Reaction Status Date / Time No Known Drug Allergies Allergy Verified 03/20/22 14:35 General Stated Complaint: Urinary DIANE: 3 PFSH All Active Problems (Updated 03/27/23 @ 06:45 by Jorge Dye MD) Acute cystitis (Acute) History of bilateral breast reduction surgery (Acute) [facility] Acne vulgaris (Acute) Anxiety state, unspecified (Acute) 09/10/21 Attention deficit disorder predominant inattentive type (Acute) 09/10/21 [facility] Visit Freckles (Acute) Impulsive (Acute) Concentration deficit (Acute) Abdominal pain (Acute) Macromastia (Acute) 04/16/21-[facility] plastic surg note Family history of DVT (Acute) Superficial thrombophlebitis (Acute) Imbalance (Acute) Frontal headache (Acute) Dizziness (Acute) Nausea (Acute) Heavy menses (Acute) History of anemia (Acute) Chest pain (Acute) Palpitations (Acute) [facility] [place] cardio report 08/06/19 Tachycardia (Chronic) 06/03/19 [facility] [place] Cardiology 08/06/19- probable postural orthostatic tacycardia. [facility] cardiology Psoriasis (Acute 05/15/18) History of positive test for herpes simplex virus type 1 by PCR (Acute 02/03/17) HSV-1 (herpes simplex virus 1) infection (Acute 05/09/16) Exercise-induced asthma (Acute 05/08/17) Contraception (Acute 12/30/14) 12/29/2020 bilateral salpingectomy. Acne (Acute 11/04/12) Medical History (Updated 03/27/23 @ 06:45 by Jorge Dye MD) BV (bacterial vaginosis) (05/09/16) Exposure to chlamydia (~04/2016) + CT probe. Rx with Azithromycin. 05/2016 [facility] neg. Exposure to chlamydia (05/10/16) HSV-1 (herpes simplex virus 1) infection 04/2016. initial exposure. vulva. Rx with Acyclovir. Irritable bowel syndrome (IBS) (03/13/15) seen by [facility] rec trial of benadryl POTS (postural orthostatic tachycardia syndrome) 2018. S/p evaluation by cardiology Tachycardia with heart rate 121-140 beats per minute Surgical History (Updated 03/20/22 @ 17:19 by Rashmi Chadwick MD) H/O bilateral breast reduction surgery (~08/06/21) History of sterilization procedure 12/29/2020. At time of repeat delivery. Bilateral salpingectomy. S/P shoulder surgery Tonsillectomy and adenoidectomy (~2002) Family History Father DVT (deep venous thrombosis) Paternal Grandfather Heart disease blood clot in heart Social History (Updated 07/12/21 @ 13:31 by Celine Smith RN) Smoking/Tobacco Use Status: Former Tobacco Use Quit Date: 02/24/23 Tobacco: How many years used: 4 Second Hand Exposure: No Smoking risk assessment performed?: Yes Alcohol Intake: current Alcohol Intake frequency: a few times a month Alcohol type: wine Details: stopped w/ knowledge of . 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 Date GA/Weeks # Preg Succ Route Wgt Sex Labor Lgth Anesthesia Location Prov Compl 03/12/17 41 No 4706.021 g Male elective c/s for lga w/o labor [facility] 12/30/20 37 No 4025.632 g Male Rashmi Chadwick Delivery Date: 03/12/17 Last Updated by: Rena Wooten GDM, diet controlled. 10 days overdue, 10lbs 6 oz. by sono, scheduled primary C/S that day. Delivery Date: 12/30/20 Last Updated by: KAYLA Mishra Exam Narrative Exam Narrative: General: Well-appearing in no acute distress speaking in complete sentences. Head: Normocephalic, atraumatic. Eye: Extraocular eye movements intact. No conjunctival injection. No scleral icterus. Ear, nose, mouth, throat: Grossly normal inspection. Normal voice, handling secretions normally. Neck: Trachea midline. Cardiovascular: Well-perfused distal extremities. Regular rate and rhythm. Respiratory: Nonlabored respiration. Clear lungs bilaterally. Gastrointestinal: Nondistended abdomen. Soft nontender abdomen. No rebound. No guarding. No CVA tenderness. Musculoskeletal: No edema. Moving all 4 extremities spontaneously. Skin: Normal for age and race, grossly normal temperature and turgor. No acute rash. Neurologic: Alert and appropriate, no apparent acute deficits. Psychiatric: Mood and manner are appropriate. Grooming and personal hygiene are appropriate. Course Vital Signs Vital signs: Vital Signs Temperature 36.6 C 03/27/23 06:19 Pulse 97 H 03/27/23 06:19 Respiratory Rate 18 03/27/23 06:19 Blood Pressure 123/73 03/27/23 06:19 Pulse Oximetry 98 03/27/23 06:19 Temperature 36.6 C 03/27/23 06:19 Temperature Source Oral 03/27/23 06:19 Pulse 97 H 03/27/23 06:19 Respiratory Rate 18 03/27/23 06:19 Blood Pressure 123/73 03/27/23 06:19 Pulse Oximetry 98 03/27/23 06:19 Oxygen Delivery Method Room Air 03/27/23 06:19 Oxygen Flow Rate 0 03/27/23 06:19
[2023-03-27 06:50] LABS: Clarity Sl Cloudy (Clear); pH 5.5 (5-8)
[2023-03-27 06:51] LABS: Bilirubin Negative (Negative); Blood Moderate (Negative); Glucose Negative (Negative); Ketones Negative (Negative); Leukocyte Esterase Moderate (Negative); Nitrite Negative (Negative); Urobilinogen 0.2 mg/dL (Up to 0.2)
[2023-03-27 07:12] LABS: Bacteria Moderate HPF (Negative); Crystals Negative HPF (Negative); Epithelial Cells Rare HPF (Negative); Mucus Trace (Negative); Other Cells Rare Renal (Negative); RBC 20-50 HPF (0-2); WBC >50 HPF (0-5)
[2023-03-27 07:13] LABS: C & S Indicated? Yes
[2023-03-27 07:27] VITALS: BP 124/76; PULSE 90; RESP 20; TEMP 36.6; O2SAT 98
[2023-03-27] MEDS: Cephalexin 250 MG CAP PO (07:30)
== END 2023-03-27 07:32 | disposition home or self-care (01) ==
PROVIDERS: Emergency Provider Emergency Medicine; PCP Nurse Practitioner
DX: N30.01 Acute cystitis with hematuria (principal); Z87.891 Personal history of nicotine dependence
CPT/HCPCS: 81025; 87077; 99283; 81003; 81015; 87086; 87186

== ENCOUNTER 2023-03-29 23:09 | Emergency (ER) | payer BC, MEDICAID, SELFPAY ==
[2023-03-29 23:39] VITALS: BP 129/81; PULSE 89; RESP 16; TEMP 36.8; O2SAT 99
--- NOTE | 2023-03-29 23:45 | DI.CT_ITS ---
Exam(s) CT ABDOMEN PELVIS W EXAM: CT ABDOMEN PELVIS W CLINICAL HISTORY: RLQ pain, nausea vomiting TECHNIQUE: Imaging Protocol: Axial computed tomography images with coronal and sagittal reformatted images were created and reviewed CONTRAST MATERIAL: Intravenous: Omnipaque 350 Contrast volume:100 mL Oral: No COMPARISON: CT CT ABDOMEN PELVIS W from 11/27/2021 FINDINGS: ABDOMEN: Lung Bases: Normal where visualized. Liver: Normal density. No measurable mass. Hepatomegaly Portal, Superior Mesenteric, and Splenic Veins: Unremarkable. Gallbladder and Biliary Tract: The gallbladder is contracted, limiting evaluation. No stones are see n. No biliary ductal dilatation is present. Pancreas: Normal density, no abnormal calcifications or inflammatory process. Spleen: Normal. Adrenals: No masses seen. Kidneys: Normal size, contour and axis. No radiodense stones or obstructive uropathy. No masses seen. There is mild wall thickening of the ureters bilaterally, right greater than left. No radiopaque st one is identified. Abdominal Aorta: Abdominal portion non-dilated. Bowel: No obstruction or bowel wall thickening. There is a normal size air-filled appendix. Peritoneal Cavity: There is a small amount of fluid in the pelvis which may be physiologic. No free air. Lymph Nodes: Within normal limits. Bones: Within normal limits for the patient's age. Soft Tissues: There is a small fat containing umbilical hernia. PELVIS: Bladder: Symmetric distention, no gross wall thickening. Reproductive Organs: There is a 2.3 cm peripherally enhancing cyst in the right ovary which likely re presents a corpus luteal cyst. There is a 3.1 cm simple cyst in the right ovary. There are prominen t gonadal vessels which can be seen with pelvic congestion syndrome. Lymph Nodes: Within normal limits. Bones: Within normal limits for the patient's age. IMPRESSION: 1. Right corpus luteal cyst with a small amount of free fluid which is likely physiologic. 2. Normal appendix. 3. Mild wall thickening of the renal collecting systems bilaterally. This may raise a question of ur inary tract infection. No radiopaque stone is seen. No hydronephrosis is present. Please correlate clinically. RADIATION DOSE DELIVERED: 647.61mGy.cm Total DLP DATA REPOSITORY: All CT scans at this facility are submitted to the National Radiology Data Registry (NRDR) Dose Index Registry (DIR) with the [employer] (ACR). RADIATION OPTIMIZATION: All CT scans at this facility use at least one of these dose optimization te chniques: automated exposure control; mA and/or kV adjustment per patient size (includes targeted exa ms where dose is matched to clinical indication); or iterative reconstruction.
[2023-03-29 23:54] LABS: Bilirubin Negative (Negative); Blood Large (Negative); Clarity Sl Cloudy (Clear); Glucose Negative (Negative); Ketones Trace mg/dL (Negative); Leukocyte Esterase Small (Negative); Nitrite Negative (Negative); Specific Gravity 1.025 (1.005-1.025); Urobilinogen 0.2 mg/dL (Up to 0.2); pH 6.5 (5-8)
[2023-03-29 23:58] LABS: Bacteria Few HPF (Negative); C & S Indicated? Yes; Casts Negative LPF (Negative); Crystals Negative HPF (Negative); Epithelial Cells Few HPF (Negative); Mucus Negative (Negative); WBC >50 HPF (0-5)
--- NOTE | 2023-03-30 00:03 | ED.GENADUL_ITS ---
Discharge Plan Disposition Patient Disposition: Home Condition: Improving Discharge Details Chief Complaint: Recheck Clinical Impression: Ovarian cyst Primary Care Provider: Teri Gomez ED Provider: Gaurav Almodovar Home Meds and New Rx's Prescriptions: No Action tretinoin [Retin-A] 0.05 % cream 1 applic topical QHS Rx Instructions: pea size amt to face nightly per note dated 10/11/20 [facility] clindamycin-benzoyl peroxide [Benzaclin] 1-5 % gel 1 applic topical DAILY Rx Instructions: apply dime sized amt to face qam after washing. note 10/11/20 [facility] [place] Derm cgc dextroamphetamine-amphetamine [Adderall] 5 mg tablet 20 mg PO BID Patient Comments: 09/10/21 [facility] noted 10/29/21 - patient states she is taking 20 mg BID quetiapine [Seroquel] 50 mg tablet 50 mg PO QHS Patient Comments: 01/30/22 noted valacyclovir 500 mg tablet 500 mg PO Q12H Qty: 10 4RF cephalexin 250 mg capsule 250 mg PO QID Qty: 20 0RF Discharge Instructions Instructions: Ovarian Cyst (ED) Additional Instructions: Please follow-up with your primary care physician and primary [facility]. Return to the emergency department for any worsening symptom Medical Decision Making 27-year-old female presents with right lower quadrant abdominal pain nausea vomiting. Recently diagnosed with UTI. Nonperitoneal nontoxic however does appear uncomfortable vital signs unremarkable afebrile nontachycardic, normotensive. However must consider appendicitis versus ovarian cyst versus worsening UTI versus less likely kidney stone or pyelonephritis lower suspicion for ovarian torsion. Screening labs imaging fluids antiemetics analgesia 1: 38 evidence of ruptured ovarian cyst. Patient feeling better after meds and rest. Home care instructions return precautions given we will follow-up with primary [facility] HPI General Date/Time Provider Initiated Documentation: 03/29/23 23:26 . HPI Narrative: 27-year-old female recently diagnosed with UTI presents with right lower quad abdominal pain nausea and vomiting. Related Data Home Medications Medication Instructions Recorded Confirmed clindamycin 1 %-benzoyl peroxide 5 1 applic topical DAILY 10/12/21 03/21/22 % topical gel (Benzaclin) tretinoin 0.05 % topical cream 1 applic topical QHS 01/14/22 06/23/22 (Retin-A) dextroamphetamine-amphetamine 5 mg 20 mg PO BID 10/29/21 03/21/22 tablet (Adderall) quetiapine 50 mg tablet (Seroquel) 50 mg PO QHS 02/07/22 03/21/22 valacyclovir 500 mg tablet 500 mg PO Q12H #10 tabs 02/10/23 cephalexin 250 mg capsule 250 mg PO QID #20 caps 03/27/23 Previous Rx's Medication Instructions Recorded valacyclovir 500 mg tablet 500 mg PO Q12H #10 tabs 02/10/23 cephalexin 250 mg capsule 250 mg PO QID #20 caps 03/27/23 Allergies Allergy/AdvReac Type Severity Reaction Status Date / Time No Known Drug Allergies Allergy Verified 03/20/22 14:35 General Stated Complaint: Recheck DIANE: 3 Review of Systems Narrative: Review of Systems Constitutional: negative Eyes: negative ENT: negative Cardiovascular: negative Respiratory: negative Gastrointestinal: Abdominal pain nausea vomiting : negative Musculoskeletal: negative Skin: negative Neurologic: negative Psych: negative PFSH All Active Problems (Updated 03/30/23 @ 01:39 by Gaurav Almodovar MD) Acute cystitis (Acute) Ovarian cyst (Acute) History of bilateral breast reduction surgery (Acute) [facility] [place] Acne vulgaris (Acute) Anxiety state, unspecified (Acute) 09/10/21 Attention deficit disorder predominant inattentive type (Acute) 09/10/21 [facility] Visit Freckles (Acute) Impulsive (Acute) Concentration deficit (Acute) Abdominal pain (Acute) Macromastia (Acute) 04/16/21-[facility] [place] plastic surg note Family history of DVT (Acute) Superficial thrombophlebitis (Acute) Imbalance (Acute) Frontal headache (Acute) Dizziness (Acute) Nausea (Acute) Heavy menses (Acute) History of anemia (Acute) Chest pain (Acute) Palpitations (Acute) [facility] [place] cardio report 08/06/19 Tachycardia (Chronic) 06/03/19 [facility] [place]/06/19- probable postural orthostatic tacycardia. [facility] [place] cardiology Psoriasis (Acute 05/15/18) History of positive test for herpes simplex virus type 1 by PCR (Acute 02/03/17) HSV-1 (herpes simplex virus 1) infection (Acute 05/09/16) Exercise-induced asthma (Acute 05/08/17) Contraception (Acute 12/30/14) 12/29/2020 bilateral salpingectomy. Acne (Acute 11/04/12) Medical History (Updated 03/30/23 @ 01:39 by Gaurva Almodovar MD) BV (bacterial vaginosis) (05/09/16) Exposure to chlamydia (~04/2016) + CT probe. Rx with Azithromycin. 05/2016 [facility] neg. Exposure to chlamydia (05/10/16) HSV-1 (herpes simplex virus 1) infection 04/2016. initial exposure. vulva. Rx with Acyclovir. Irritable bowel syndrome (IBS) (03/13/15) seen by [facility] rec trial of benadryl POTS (postural orthostatic tachycardia syndrome) 2018. S/p evaluation by cardiology Tachycardia with heart rate 121-140 beats per minute Surgical History (Updated 03/20/22 @ 17:19 by Rashmi Amato MD) H/O bilateral breast reduction surgery (~08/06/21) History of sterilization procedure 12/29/2020. At time of repeat delivery. Bilateral salpingectomy. S/P shoulder surgery Tonsillectomy and adenoidectomy (~2002) Family History Father DVT (deep venous thrombosis) Paternal Grandfather Heart disease blood clot in heart Social History (Updated 07/12/21 @ 13:31 by Celine Smith RN) Smoking/Tobacco Use Status: Former Tobacco Use Quit Date: 02/24/23 Tobacco: How many years used: 4 Second Hand Exposure: No Smoking risk assessment performed?: Yes Alcohol Intake: current Alcohol Intake frequency: a few times a month Alcohol type: wine Details: stopped w/ knowledge of . 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 Date GA/Weeks # Preg Succ Route Wgt Sex Labor Lgth Anesth esia Location Prov Complic 03/12/17 41 No 4706.021 g Male elective c /s for lga w/o labor [facility] 12/30/20 37 No 4025.632 g Male An ne [facility] Delivery Date: 03/12/17 Last Updated by: Rena Wooten GDM, diet controlled. 10 days overdue, 10lbs 6 oz. by sono, scheduled primary C/S that day. Delivery Date: 12/30/20 Last Updated by: KAYLA Mishra Exam Narrative Exam Narrative: Physical Examination General: alert, awake, cooperative, appears uncomfortable HEENT: normocephalic, atraumatic; PERRL, EOM intact, conjunctiva normal; no nasal discharge; moist mucous membranes, oral and pharyngeal mucosa normal, tolerating secretions Neck: supple, trachea midline; full ROM Chest: normal to inspection Respiratory: normal respiratory effort, speaking in full sentences, clear to auscultation, no wheezing, rales or rhonchi Cardiac: regular rate, regular rhythm, S1S2 intact, no murmurs rubs or gallops GI: abdomen soft, non-tender, non-distended; no palpable mass or hepatosplenomegaly Skin: no lesions, rashes or trauma appreciated Neuro: AAOx3, normal speech, moving all extremities Psych: Appropriate mood and affect Course Vital Signs Vital signs: Vital Signs Temperature 36.8 C 03/29/23 23:39 Pulse 89 03/29/23 23:39 Respiratory Rate 16 03/29/23 23:39 Blood Pressure 129/81 03/29/23 23:39 Pulse Oximetry 99 03/29/23 23:39 Temperature 36.8 C 03/29/23 23:39 Temperature Source Oral 03/29/23 23:39 Pulse 89 03/29/23 23:39 Respiratory Rate 16 03/29/23 23:39 Respiratory Effort Normal, Non-Labored 03/29/23 23:42 Blood Pressure 129/81 03/29/23 23:39 Blood Pressure Position Sitting 03/29/23 23:39 Pulse Oximetry 99 03/29/23 23:39 Oxygen Delivery Method Room Air 07/01/23 23:39 Oxygen Flow Rate 0 03/29/23 23:39 Pain Level 8 03/29/23 23:39 Lab/Test Results Lab/Test Results: 03/29/23 23:46 Urine - Reflex from Ua Urine Culture - Pending Laboratory Tests Range/Units 03/29/23 23:46 Urine Color (Yellow) Yellow Urine Clarity (Clear) Sl Cloudy Urine pH (5-8) 6.5 Ur Specific Irwin (1.005-1.025) 1.025 Urine Protein (Negative) mg/dL >=300 H Urine Ketones (Negative) mg/dL Trace H Urine Blood (Negative) Large H Urine Nitrite (Negative) Negative Urine Bilirubin (Negative) Negative Urine Urobilinogen (Up to 0.2) mg/dL 0.2 Ur Leukocyte Esterase (Negative) Small H Urine RBC (0-2) HPF 10-20 H Urine WBC (0-5) HPF >50 H Ur Epithelial Cells (Negative) HPF Few Urine Crystals (Negative) HPF Negative Urine Bacteria (Negative) HPF Few Urine Casts (Negative) LPF Negative Urine Mucus (Negative) Negative Ur Culture Indicated? Yes Urine Glucose (Negative) mg/dL Negative
[2023-03-30 00:09] LABS: Abs Immature Grans 0.03 10^3/uL (0.0-0.06); Absolute Basophil Count 0.05 10^3/uL (0.0-0.2); Absolute Eosinophil Count 0.08 10^3/uL (0.0-0.7); Absolute Lymphocyte Count 2.75 10^3/uL (1.2-3.4); Absolute Monocyte Count 0.79 10^3/uL (0.1-0.8); Absolute Neutrophil Count 6.17 10^3/uL (1.2-6.7); Basophils % 0.5; Eosinophils % 0.8; HCT 39.2 % (36.0-46.0); HGB 13.3 g/dL (11.2-15.7); Immature Grans % 0.3; Lymphocytes % 27.9; MCH 30.5 pg (27.0-33.0); MCHC 33.9 % (32.0-36.0); MCV 90 fL (80-95); MPV 10.2 fL (8.0-11.0); Neutrophils % 62.5; Platelet Count 226 10^3/uL (130-400); RBC 4.36 10^6/uL (3.93-5.22); RDW 13.3 % (11.7-14.6); RDW-SD 43.6 fL; WBC 9.87 10^3/uL (4.4-10.8)
[2023-03-30] MEDS: Ketorolac 15 MG/ML VIAL IVP (00:09)
[2023-03-30] MEDS: Normal Saline 1,000 ML 1000 ML IV (00:09)
[2023-03-30] MEDS: Ondansetron 4 MG/2 ML VIAL IVP (00:10)
[2023-03-30 00:26] LABS: ALT 17 U/L (14-59); AST 17 U/L (15-37); Albumin 3.5 g/dL (3.4-5.0); Alkaline Phosphatase 94 U/L (46-116); Anion Gap 9.8 mmol/L (3-11); BUN 11 mg/dL (7-18); Bilirubin, Total 1.6 mg/dL (0.2-1.0); CO2 27.2 mmol/L (21.0-32.0); CREATININE 0.8 mg/dL (0.55-1.02); Calcium 8.7 mg/dL (8.5-10.1); Chloride 102 mmol/L (98-107); Glucose 124 mg/dL (74-106); Lipase 25 U/L (16-77); Potassium 3.3 mmol/L (3.5-5.1); Sodium 139 mmol/L (136-145); Total Protein 7.3 g/dL (6.4-8.2)
[2023-03-30] MEDS: Normal Saline - Diluent 50 ML VIAL IV (00:39)
[2023-03-30] MEDS: Omnipaque 350 MG/ML 100 ML BTL IJ (00:39)
--- NOTE | 2023-03-30 01:12 | DI.VRAD_ITS ---
PROCEDURE INFORMATION: Exam: CT Abdomen And Pelvis With Contrast Exam date and time: 03/30/2023 12:37 AM Age: 27 years old Clinical indication: Abdominal pain; Localized; Right lower quadrant (rlq) TECHNIQUE: Imaging protocol: Computed tomography of the abdomen and pelvis with contrast. Contrast material: OMNIPAQUE 350; Contrast volume: 100 ml; Contrast route: INTRAVENOUS (IV); COMPARISON: CT ABDOMEN PELVIS W 11/27/2021 5:10 PM FINDINGS: Limitations: Paucity of intra-abdominal fat. Lungs: Lung bases clear. Liver: Normal appearing liver. Gallbladder and bile ducts: Gallbladder partially collapsed. No calcified gallstones seen. No biliary dilatation. Pancreas: Normal appearing pancreas. Spleen: Normal appearing spleen. Adrenal glands: Normal appearing adrenal glands. Kidneys and ureters: Normal appearing kidneys. No hydronephrosis. Prominent visualization of the urothelium throughout the ureters bilaterally, more so on the right. Acute urinary tract infection? Artifactual appearance? Stomach and bowel: No oral contrast. Stomach partially decompressed. No small bowel dilatation to suggest obstruction. Normal-appearing colon. No evidence of diverticulitis or colitis. Appendix: Normal appendix Intraperitoneal space: Small-moderate amount of free fluid in the deep pelvis. No free air. Vasculature: Normal caliber abdominal aorta. Lymph nodes: No pathologically enlarged mesenteric, retroperitoneal, or pelvic sidewall lymph nodes. Urinary bladder: Urinary bladder partially distended with fluid. Reproductive: Anteverted uterus, partially obscured but normal in size. Left ovary partially obscured but normal in size. 2.6 cm x 3.0 cm dominant right ovarian follicle. 2.5 cm x 1.5 cm right ovarian corpus luteum with discontinuous peripheral enhancement in keeping with luteal rupture, image 673 of series 5. Prominence of the parauterine and gonadal veins, nonspecific but seen in the setting pelvic congestion syndrome. Bones/joints: No acute fracture seen among the bones of the abdomen or pelvis. Soft tissues: Tiny fat-containing ventral hernia at the umbilicus, doubtful clinical significance. IMPRESSION: Ruptured right ovarian corpus luteum with a small-moderate amount of free pelvic fluid. 2.6 cm x 3.0 cm dominant right ovarian follicle also present. Dictated and Authenticated by: Kody Bess MD. Ordering:P.DISSObdulia Nolasco MD
[2023-03-30 01:45] VITALS: BP 113/68; PULSE 86; RESP 16; TEMP 36.8; O2SAT 99
== END 2023-03-30 01:47 | disposition home or self-care (01) ==
PROVIDERS: Emergency Provider Emergency Medicine; PCP Nurse Practitioner
DX: N83.201 Unspecified ovarian cyst, right side (principal); N39.0 Urinary tract infection, site not specified
CPT/HCPCS: 36415; 80053; 81025; 83690; 87077; 96361; 96374; 96375; 99285; 74177; 81003; 81015; 85025; 87086; 87186; 99284; J1885; J2405; J3490

== ENCOUNTER 2024-10-18 21:18 | Emergency (ER) | payer SELFPAY ==
[2024-10-18 21:27] VITALS: BP 130/89; PULSE 106; RESP 18; TEMP 36.6; O2SAT 99
[2024-10-18 21:37] VITALS: BP 130/89; PULSE 113; RESP 19; TEMP 36.6; O2SAT 100
[2024-10-18 21:52] LABS: Abs Immature Grans 0.06 10^3/uL (0.0-0.06); Absolute Basophil Count 0.06 10^3/uL (0.0-0.2); Absolute Lymphocyte Count 0.85 10^3/uL (1.2-3.4); Absolute Monocyte Count 0.91 10^3/uL (0.1-0.8); Absolute Neutrophil Count 14.04 10^3/uL (1.2-6.7); Basophils % 0.4 %; Eosinophils % 0.6 %; HCT 46.4 % (36.0-46.0); HGB 16.1 g/dL (11.2-15.7); Immature Grans % 0.4 %; Lymphocytes % 5.3 %; MCH 31.9 pg (27.0-33.0); MCHC 34.7 % (32.0-36.0); MCV 92 fL (80-95); MPV 10.6 fL (8.0-11.0); Monocytes % 5.7 %; Neutrophils % 87.6 %; Platelet Count 282 10^3/uL (130-400); RBC 5.05 10^6/uL (3.93-5.22); RDW 11.8 % (11.7-14.6); RDW-SD 39.1 fL; WBC 16.03 10^3/uL (4.4-10.8)
[2024-10-18] MEDS: Ondansetron 4 MG/2 ML VIAL IVP (21:57)
[2024-10-18] MEDS: Normal Saline 1,000 ML 1000 ML IV (21:58)
[2024-10-18 22:01] LABS: Anion Gap 13.6 mmol/L (3-11); BUN 11 mg/dL (7-18); CO2 25.4 mmol/L (21.0-32.0); CREATININE 0.9 mg/dL (0.55-1.02); Chloride 103 mmol/L (98-107); Estimated GFR 89.86 (mL/min/1.73m2); Glucose 166 mg/dL (74-106); Potassium 3.5 mmol/L (3.5-5.1); Sodium 142 mmol/L (136-145)
[2024-10-18 22:05] LABS: Calcium 9.7 mg/dL (8.5-10.1)
[2024-10-18 22:23] LABS: Lab Add On Test DONE
[2024-10-18 22:30] LABS: HCG Qual (Serum) Negative
--- OUTSIDE RECORDS SUMMARY | 2024-10-18 22:43 | XMS_ITS | Encounter Summary ---
Author Organization [facility] [place] [address] Care Team Providers Care Box Inspector Name Role Phone Unavailable Primary Care Provider Unavailabl e Reason for Visit * Reason Comments GI Problem * Consultation (Routine) - Closed Specialty Diagnoses / Procedures Referred By Jorden chong Referred To Contact Gastroenterology Diagnoses diarrhea every day for 10 years after meals Corrine Strickland MD [address] [place] [phone] [facility] [address] [place] [address] Referral ID Status Reason Start Date Expiration Date V isits Requested Visits Authorized [id number] Closed Evaluate and [facility] 07/21/2017 07/21/2018 1 1 Encounter Details Date Type Department Care Team (Late st Contact Info) Description 08/05/2017 9:00 AM EST Office Visit [place] [phone] Maureen Delcid PA Lower abdominal pain; Diarrhea, unspecified type; Constipation, unspecified constipation type; Blood in stool; History of anemia Social History Tobacco Use Types Packs/Day Years Used Date Smoking Tobacco: Never Smokeless Tobacco: Never Sex and Gender Information Value Date Recorded Sex Assigned at Female 08/03/2021 3:50 PM EDT Gender Identity Female 08/03/2021 3:50 PM EDT Sexual Orientation Straight 08/03/2021 3: 50 PM EDT documented as of this encounter Last Filed Vital Signs Vital Sign Reading Time Taken Comments Blood Pressure - - Pulse - - Temperature - - Respiratory Rate - - Oxygen Saturation - - Inhaled Oxygen Concentration - - Weight 60.8 kg (134 lb) 08/05/2017 8:44 AM EST Height 165.1 cm (5' 5) 08/05/2017 8:44 AM EST Body Mass Index 22.3 08/05/2017 8:44 AM EST documented in this encounter Patient Instructions * Patient Instructions* Maureen Delcid - 08/05/2017 9:00 AM EST Thank you for coming in today. Here is a summary of what we discussed: 1. For abdominal spasms and cramps, take enteric coated pepermint oil tablets. Take on an empty stomach, before meals. Can take up to 4 caps/day. 2. Take imodium in the morning, but to 8 tabs/day (start with 1 or 2, and depending on symptoms canincrease) 3. Trial of low FODMAP diet for 2-4 weeks - see handouts. 4. Labs today: CBC, CMP, TSH, CRP (in 3L) 5. Stool guiac test for occult blood. 6. I will send you these results, and depending on what they show we can consider colonoscopy or trials of other medications. 7. Follow up in clinic documented in this encounter Progress Notes * Maureen Delcid - 08/05/2017 9:00 AM EST Gastroenterology & Hepatology New Patient Consultation Note PCP: Teri Gomez NP Requesting Provider: Teri Gomez NP Reason for consultation: Harika Potter is a 21 y.o. female with medical history significant for iron- deficiency anemia. I am seeing her as a new patient today in consult for question of IBS-D. Subjective: HPI: Harika reports that her GI issues have been going on for years and getting progressively worse. She has periods of weeks with frequent diarrhea that is worse after meals. Then she goes about one week of severe constipation. This alternating pattern has been going on for ~10 years (since age ~12). Diarrhea: On a bad day she goes to the bathroom 5-10 times, stool varies between Ste. Genevieve scale 4 and 7, but it is not solid or formed, is more airy, gassy. This is accompanied by severe sharp crampy abdominal pain, I can't stand up. The pain is mostly relieved with bowel movement. Has nausea with abdominal pains, which comes and goes quickly only when she has abdominal pain. No vomiting. Has noticed blood, mostly on toilet paper, but thinks d/t hemorrhoids. About once a month she notices a black stool - this usually happens when she transitions from period of constipation back to diarrhea. No mucus. Feels bloated but no distension lately (she used to look more distended). Not much gas. Has urgency, no accidents. Sometimes wakes at night with urgency if she eats a late meal and goes to bed without having a bowel movement. The frequency of loose stools is more now (previously 1-2 per day, now 5-10) and pain is worse, compared to when symptoms first started several years ago. Constipation: After several weeks of frequent stools, she goes for 3-4 days without a bowel movement. Is not able to identify specific trigger for this change- not stress, foods and exercise and hydration are unchanged. She feels pressure, fullness these days, but no achey, gross feeling in herstomach. Overall on these days I feel a lot better. She sometimes feels urge to have bowel movement but is unable to pass stool. Then, she has a Ste. Genevieve scale 2 stool with straining and occasional hemorrhoids with some blood on toilet paper. After this stool, she goes back to having frequent looser stools. She has tried: Dairy free (no cheese, milk in beverages) x 3 months early 2016, no improvement in symptoms. Resumed dairy. Then, Gluten-free next x 2-3 months in mid 2017, no improvement. Imodium 1 pill in AM x 1 month, a year ago- worked for a day, decreased frequency of loose stools, but no improvement of abdominal pain. Metamucil 1 year ago, no improvement. Lactaid ~1 year ago, no difference Peppermint tea - occasional Has not tried Zofran for nausea. Weight: 134 lbs today, same as before she got . Same weight since high school. Appetite is good. No early satiety. Of note, when in 2015- she had no GI issues - no alternating diarrhea/constipation, no abdominal pain. She had bowel movement daily or every other day, solid formed stool. Did not take anymedications during except a multivitamin for a few months. She reports being told she was anemic in the past, during and even before . She took iron supplements for a while but developed constipation, so stopped it and tried to increase dietary intake of meats, greens. Prior to , she had heavy periods but not much abdominal cramping. Has never had regular periods since baby was born 5 months ago. She has been on control before and after her . Has tried several different forms of control. No change in abdominal pain, bowel symptoms. Dad and sister have IBS. Mom follows gluten free diet for gluten intolerance, tested celiac negative. Diet review: B: toast, eggs L: salad, sandwich D: meat (chicken, beef), vegetables, rice, potatoes, pasta Sweets/sugar: once/week dessert Drinks juice all the time - apple, orange, 2 8 oz glasses/day. Coffee once in a while. No energy drinks. Soda once/week. Fruits on a regular basis: apples, berries, pears, oranges, watermelon in summer. No bananas. Does not drink milk but does not avoid other dairy products. Eats onions, peppers, garlic, asparagus (fructans), dried beans/peas (galactans), occasional cruciferous vegetables. Diagnostic studies: 1. Celiac testing, ~1-2 years ago, negative. Was not on gluten-free diet at the time. Also had normal thyroid studies in the past. 2. Last had blood work ~ 2015 (first trimester of ). MEDICAL HISTORY: Asthma CURRENT MEDICATIONS: ??? norelgestrom-ethinyl estradiol (ORTHO EVRA) 150-35 mcg/24 hr Patch Weekly ??? triamcinolone (KENALOG) 0.1 % Ointment ALLERGIES: none SURGICAL HISTORY: Tonsils and adenoids - 2004 Shoulder - left 2011 2016 SOCIAL HISTORY: Single. One son, Gabe (~5 months old). Lives with Gabe's father. Home with Gabe during day. 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 Tobacco, stopped 1.5 yrs ago. No other drug use. FAMILY HISTORY: Maternal grandfather: colon cancer, diagnosed in his late 40s. Maternal grandmother- metastatic cancer. Diabetes: grandparents, uncle Mom- hypothyroid. Has had 1 colonoscopy, normal. There is no known family history of inflammatory bowel disease, celiac disease, or GI cancer (esophagus, stomach). There is no history of liver or pancreas disease. ROS: Constitutional: + chills, + fatigue even before . Denies unintended weight loss, fever, night sweats Eyes: Denies red or painful eyes ENT: Denies oral ulcers, dysphagia, odynophagia, Resp: Denies cough, shortness of breath, wheezing, hemoptysis Cardio: Denies chest pain, palpitations, leg swelling : no dysuria, incontinence Integumentary: +hand rash 1 yr ago, thinks due to gloves at work. Resolved after . Denies new rashes, sores, lesions. GI: see HPI Musculoskeletal: Denies new joint pain, stiffness, muscle aches, inflammatory arthritis Psych: + anxiety Denies depression ENDO: Denies frequent urination and excessive hunger or thirst. Neuro: Denies headaches, numbness/tingling or weakness in extremities ALL/IMMUNO: No Seasonal allergies. Denies frequent colds. Objective: PHYSICAL EXAMINATION: Height: 5'5 Weight today: 134 lb Body mass index is 22.3 kg/(m^2). GEN: Alert, well-appearing, no acute distress. Appears stated age. Cooperate and answers questions appropriately. Here with 5 month old son Gabe. SKIN: No rashes or abnormal lesions. NECK: No lymphadenopathy, thyromegaly. HEENT: Normal sclera, PERRL, oropharynx clear without ulceration or lesions. LUNGS: Clear to auscultation bilaterally. COR: Regular, normal S1 and S2 without murmurs ABD: Normal active bowel sounds. Soft and non-distended. No tenderness to deep palpation in all 4 quadrants. No organomegaly, masses, rebound, guarding, ascites. EXT: No upper extremity cyanosis, clubbing. +2 radial pulses. No peripheral edema. PSYCH: mood appropriate, good eye contact, normal interaction Impression/Recommendations: Harika Potter is a 21 year old female with PMHx of asthma and iron deficiency anemia who presents with a ten year history of diarrhea after meals that alternates with periods of constipation. This isaccompanied by abdominal pain and some bloating. The diarrhea and abdominal pain have increased in frequency over the past year. No blood or mucus in stool although she does note occasional darker stools. Abdominal pain improves after bowel movements. Her notable lack of diarrhea during is likely due to progesterone slowing gut motility. DDX includes IBS with mixed diarrhea and constipation. She meets Rozet IV criteria for IBS. She doesnot have alarm features of weight loss, nocturnal symptoms, family history of IBD. Her maternal grandfather was diagnosed with colorectal cancer but her mother's recent colonoscopy was normal. I do not have recent labs to rule out anemia. Her physical exam was unremarkable. Her weight has been stable over the past year and a half, now same weight as before . There is an increased prevalence of biopsy-confirmed Celiac disease among people with IBS-like symptoms, but she had negative celiac testing 1-2 years ago, well after her symptoms started. She does not have extraintestinal symptoms (uveitis, oral ulcers, arthritis, skin lesions), RLQ tenderness, perianal disease, or family history to suggest IBD. We discussed pathophysiology of IBS, including altered brain-gut axis, visceral hypersensitivity, changes in gut motility and microbiome. We discussed her diet and the role of a low FODMAP diet in management of IBS. Although she has sequentially tried dairy and gluten free diets in the past, she may not have reached a threshold of eliminating potentially offending foods to have seen an improvement of symptoms. She is willing to try the low FODMAP diet for 2-4 weeks, with gradual reintroduction of food groups. I provided some handouts. Also recommend trial of daily low dose of Imodium for diarrhea and enteric coated peppermint oil toreduce abdominal smooth muscle spasms/cramps. We will order labs to check for anemia, thyroid function and fecal occult blood. If symptoms persist, consider bile acid diarrhea (there is evidence that > 1:4 people with IBS-Dtype symptoms have bile acid diarrhea) or microscopic colitis (colonoscopy to rule out), Giardia (consider stool testing). The following recommendations were printed out for the patient: 1. For abdominal spasms and cramps, take enteric coated peppermint oil tablets. Take on an empty stomach, before meals. Can take up to 4 caps/day. 2. Take Imodium in the morning, up to 8 tabs/day (start with 1 or 2, and depending on symptoms can increase) 3. Trial of low FODMAP diet for 2-4 weeks - see handouts. 4. Labs today: CBC, CMP, TSH, CRP (in 3L) 5. Stool guiac test for occult blood. 6. I will send you these results, and depending on what they show we can consider colonoscopy or trials of other medications. 7. Follow up in clinic. The patient was given my contact information and will call me with concerns or questions. Patient was discussed with Kelle Regalado APRN. Maureen Delcid PA-C Section of Gastroenterology [place] [id number] documented in this encounter Plan of Treatment Scheduled Orders Name Type Priority Associated Diagnoses Orde r Schedule POCT Stool occult blood Point of Care Testing Routine Diarrhea, Unspecified Type Constipation, unspecified constipation type Blood in stool Ordered: 08/05/2017 documented as of this encounter Procedures Procedure Name Priority Date/Time Associated Diagnosis Comments CRP, ACUTE INFLAMMATION Routine 08/05/2017 10:33 AM EST Diarrhea, unspecified type Constipation, unspecified constipation type Blood in stool History of anemia CMP W/FASTING GLUCOSE Routine 08/05/2017 10:33 AM EST Lower abdominal pain Diarrhea, unspecified type Constipation, unspecified constipation type Blood in stool History of anemia HEMOGRAM Routine 08/05/2017 10:33 AM EST Diarrhea, unspecified type Constipation, unspecified constipation type Blood in stool History of anemia Lower abdominal pain DIFFERENTIAL, AUTOMATED Routine 08/05/2017 10:33 AM EST Diarrhea, unspecified type Constipation, unspecified constipation type Blood in stool History of anemia Lower abdominal pain CBC (WITH DIFF) Routine 08/05/2017 10:33 AM EST Diarrhea, unspecified type Constipation, unspecified constipation type Blood in stool History of anemia Lower abdominal pain TSH Routine 08/05/2017 10:33 AM EST Diarrhea, unspecified type Constipation, unspecified constipation type documented in this encounter Results * Differential, Automated (08/05/2017 10:33 AM EST) Pathologist [facility] Neutrophil % 55.7 % [facility] Neutrophil Absolute 4.32 1.70 - 6.10 x10(3)/[facility] Lymph % 33.9 % [facility] Lymphocytes Abs 2.6 0.9 - 3.2 x10(3)/[facility] Monocyte % 9.1 % [facility] Monocyte Abs 0.7 0.3 - 0.9 x10(3)/[facility] Eos % 0.6 % [facility] Eosinophils Abs 0.0 0.0 - 0.4 x10(3)/[facility] Basophil % 0.6 % [facility] Baso Absolute 0.0 0.0 - 0.1 x10(3)/[facility] Immature Gran % 0.10 % [facility] Comment: Immature granulocytes(IG's)percentage and absolute count will include metamyelocytes, myelocytes, and promyelocytes. Blood smears from CBCs yielding IG's will be scanned manually for concordance. If this scan disagrees with the automated IG or if promyelocytes are noted, a manual differential will be performed. Immature Gran Absolute 0.01 0.00 - 0.04 x10(3)/[facility] Blood specimen (specimen) 08/05/2017 10:33 AM EST 08/05/2017 10:45 AM EST Narrative Resulting Agency Comment Spec In Lab Cuca Acuna MD HEMATOLOGY ORDERA BLES [facility] [place] [address] * (ABNORMAL) Hemogram (08/05/2017 10:33 AM EST) [facility] White Blood Cell 7.8 4.0 - 9.5 x10(3)/ L [facility] Red Blood Cell 4.63 4.00 - 5.21 x10(6)/mc L [facility] Hemoglobin 12.3 11.7 - 15.5 gm/dL [facility] Hematocrit 39.3 35.7 - 45.8 % [facility] Mean Cell Volume 84.9 82.6 - 94.4 fL [facility] Mean Cell Hemoglobin 26.6(L) 27.1 - 32.0 pg [facility] Mean Cell Hemoglobin Concentration 31.3(L) 31.7 - 35.0 gm/dL [facility] Platelet 341 145 - 357 x10(3)/[facility] RDW Standard Deviation 50.1(H) 37.0 - 46.0 fL [facility] RDW coefficient of variation 16.3(H) 11.5 - 14.1 % [facility] Mean Platelet Volume 10.9 7.6 - 12.9 fL [facility] NRBC% auto 0.0 % [facility] NRBC Absolute 0.000 0.000 - 0.000 x10(3)/[facility] Blood specimen (specimen) 08/05/2017 10:33 AM EST 08/05/2017 10:45 AM EST Narrative Resulting Agency Comment Spec In Lab Cuca Acuna MD HEMATOLOGY ORDERA BLES [facility] [place] [address] * CRP, acute inflammation (08/05/2017 10:33 AM EST) C-Reactive Protein 2.6 <=4.9 mg/L [facility] Blood specimen (specimen) 08/05/2017 10:33 AM EST 08/05/2017 10:45 AM EST Narrative Resulting Agency Comment Spec In Lab Cuca Acuna MD CHEMISTRY ORDERAB LES Performing Organization Address City/[facility]/ZIP Co de Phone Number [facility] [place] [address] * TSH (08/05/2017 10:33 AM EST) Thyroid Stimulating Hormone 2.33 0.27 - 4.20 mlU/ML [facility] Blood specimen (specimen) 08/05/2017 10:33 AM EST 08/05/2017 10:45 AM EST Narrative Resulting Agency Comment Spec In Lab Cuca Acuna MD CHEMISTRY ORDERAB LES Performing Organization Address [facility] Co de Phone Number [facility] [place] [place] [address] * (ABNORMAL) CMP w/fasting Glucose (08/05/2017 10:33 AM EST) Glucose Fasting 93 65 - 99 mg/dL [facility] Comment: ?Fasting* Glucose Interpretive Criteria Normal ?65-99 mg/dL Impaired Fasting glucose ?100-125 mg/dL Consistent with Diabetes Mellitus ? >or= 126 mg/dL *Fasting is defined as no caloric intake for at least 8 hours In the absence of unequivocal hyperglycemia a plasma glucose value of >or= 126 mg/dL should be repeated on a subsequent day. Diagnosis and Classification of Diabetes Mellitus, Position Statement from the [place] [employer]. ??Diabetes Care, Volume 33, Supplement 1, Sep 2009 Blood Urea Nitrogen 11 10 - 20 mg/dL [facility] Creatinine 0.67(L) 0.70 - 1.20 mg/dL [facility] Sodium 140 135 - 145 mmol/L [facility] Potassium 4.4 3.5 - 5.0 mmol/L [facility] Comment: Please note: ??Patients with WBC >100,000 may have falsely elevated Potassium levels. ??For accurate Potassium quantification in these patients send serum separator tube (gold top) for subsequent determinations. ??Contact the Clinical Chemistry Laboratory if there are any questions. Chloride 102 98 - 107 mmol/L [facility] Carbon Dioxide 27 22 - 31 mmol/L [facility] Anion Gap 11 5 - 15 mmol/L [facility] Calcium 9.4 8.5 - 10.5 mg/dL [facility] Protein, Total 7.5 6.1 - 8.0 gm/dL [facility] Albumin 4.2 3.2 - 5.2 gm/dL [facility] Aspartate Aminotransferase 13 5 - 30 unit/L [facility] Alanine Aminotransferase 7 0 - 25 unit/L [facility] Alkaline Phosphatase 62 55 - 140 unit/L [facility] Bilirubin, Total 1.8(H) 0.2 - 1.3 mg/dL [facility] Est Glomerular Filtration Rate >60 >=60 [facility] Comment: The reported eGFR should be multiplied by 1.2 for patients. The MDRD is not an appropriate measure of renal function for patients with body mass extremes or in patients with acute kidney failure. http://[employer]/DHnkdep http://[employer]/DHMCnkf Blood specimen (specimen) 08/05/2017 10:33 AM EST 08/05/2017 10:45 AM EST Narrative Resulting Agency Comment Spec In Lab Cuca Acuna MD CHEMISTRY ORDERAB LES [facility] [place] [address] documented in this encounter Visit Diagnoses Diagnosis Lower abdominal pain Abdominal pain, other specified site Diarrhea, unspecified type Constipation, unspecified constipation type Blood in stool History of anemia Personal history of diseases of blood and blood-forming organs documented in this encounter
--- OUTSIDE RECORDS SUMMARY | 2024-10-18 22:43 | XMS_ITS | Encounter Summary ---
Author Organization 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 Name Role Phone Unknown, Provider Primary Care Provider Unava ilable Encounter Details Date Type Department Care Team (Late st Contact Info) Description 07/13/2020 Lab Requisition [facility] Pathology & Laboratory Medicine - [facility] [address] [place] [address] Outr Resulting Lab, Provider Social History Tobacco Use Types Packs/Day Years Used Date Smoking Tobacco: Never Assessed Interpersonal Safety Answer Date Record ed Physically Hurt Never 07/06/2020 Verbally Threaten Not on file 07/06/2020 Comments Unknown Sex and Gender Information Value Date Recorded Sex Assigned at Not on file Legal Sex Female 16:03 EDT Gender Identity Not on file Sexual Orientation Not on file documented as of this encounter Plan of Treatment Not on file documented as of this encounter Procedures Procedure Name Priority Date/Time Associated Diagnosis Comments RUBELLA IGG ANTIBODY Routine 07/13/2020 9:00 EDT VARICELLA IGG ANTIBODY Routine 07/13/2020 9:00 EDT documented in this encounter Results * VARICELLA IGG ANTIBODY (07/13/2020 9:00 EDT) Varicella IgG Ab Positive See Note 07/14/2020 10:46 EDT [facility] Comment:Presence of detectab le Varicella Zoster virus IgG antibodies. Blood VENOUS BLOOD / Unknown 07/13/2020 9:00 EDT 07/13/2020 16:12 EDT us Provider Outr Resulting Lab IMMUNOLOGY AND SEROL OGY ORDERABLES Final Result [facility] [address] [place] [address] * RUBELLA IGG ANTIBODY (07/13/2020 9:00 EDT) Rubella IgG Ab Positive See Note 07/14/2020 10:50 EDT [facility] Comment:Positive for IgG ant ibodies to Rubella virus. Blood VENOUS BLOOD / Unknown 07/13/2020 9:00 EDT 07/13/2020 16:12 EDT us Provider Outr Resulting Lab CHEMISTRY & BLOOD GA S ORDERABLES Final Result [facility] [address] [place] [address] documented in this encounter Visit Diagnoses Not on filedocumented in this encounter Care Teams Top Lift And Automatic Window Repairer Relationship Specialty Start Date End Date Unknown, Provider, PCP - General 09/29/19 documented as of this encounter
--- OUTSIDE RECORDS SUMMARY | 2024-10-18 22:43 | XMS_ITS | Encounter Summary ---
Author Organization [facility] [place] [address] [place] [address] Care Team Providers Care Outreach Nurse Name Role Phone Elizabeth Gomezyce Sameera EASTON Primary Care Provider [phone] Reason for Visit * Reason Comments Advice Only BBR - watched anand reddy nd did tablet questionnaire Encounter Details Date Type Department Care Team (Late st Contact Info) Description 04/16/2021 9:15 AM EDT Office [place] [address] Branden Easley MD Macromastia Social History Tobacco Use Types Packs/Day Years Used Date Smoking Tobacco: Former Cigarettes 1 11 28 014 - 2016 Smokeless Tobacco: Never Alcohol Use Standard Drinks/Week Comments Yes 0 (1 standard drink = 0.6 oz pur e alcohol) Sex and Gender Information Value Date Recorded [...] - Inhaled Oxygen Concentration - - Weight 72.6 kg (160 lb) 04/16/2021 9:12 AM EDT Height 154.9 cm (5' 1) 04/16/2021 9:12 AM EDT Body Mass Index 30.23 04/16/2021 9:12 AM EDT documented in this encounter Patient Instructions * Patient Instructions* Indy Cedeno RMA - 04/16/2021 9:15 AM EDT Preoperative Instructions You have been scheduled to have plastic surgery. The instructions below are specific to your procedure. If you are a smoker, we ask that you stop at least 2 months prior to your surgical date and remain nicotine free for at least a month after surgery. Smoking can impair healing and increase your chance of infection. If you are 40 years old or older, please remember to have a mammogram with in one year prior to your upcoming breast reduction surgery as we advise not having one for at least six months after surgery. Two Weeks prior to Surgery Do not take any Aspirin or aspirin containing products for the 2 weeks leading up to surgery. You may resume taking 48 hours after surgery. Do not take medications containing Ibuprofen. Do not take any anti-steroidal's such as Advil, Aleve, Celebrex, Daypro, Indocin, Midol, Motrin, Naproxen, Nuprinand Toradol. These medications increase your risk of bleeding. You may resume taking any of these medications 48 hours after surgery. Stop Vitamin E, Garlic supplements, Ginseng, Fish Oil tablets, Ginkgo and Moris's Wort and any other herbals. You may resume taking 48 hours after surgery. If you need medication for pain, you may take Tylenol or extra strength Tylenol during this two week period. One Week prior to Surgery Please call if you feel ill, have cold or fever, have a rash or breaks in the skin near your surgical site. Stay hydrated. Avoid alcohol and recreational drugs Three Days before Surgery Do not shave near your surgical site One Day before Surgery Breast Surgery - Wash your chest and underarms for several minutes the night before and the morningof surgery using an antibacterial soap (Dial or Lever 2000) or Hibiclens wash. The Same Day Surgery Team will call you the business day before your surgery to give you instructions specific to your procedure and your surgical time. Generally, you will be asked not to eat any solids after midnight. You are allowed clear liquids (water, conrad nusrat, apple juice, black coffee andplain tea) until 2 hours prior to your surgery. Day of Surgery A tow driver is required at time of discharge. If you are a Same Day procedure and do not have a driveryour surgery will be canceled. DO NOT wear any jewelry, makeup or artificial nails the day of surgery. DO NOT apply any lotions, powders or deodorants on or near the surgical site the day of surgery. Do wear comfortable, loose fitting clothes. Anesthesia will meet with you the morning of surgery. They will perform an assessment and review your history with you. Contact Information: During regular office hours (Friday- Friday, non-holiday 8:00 am- 5:00 pm) For an appointment or insurance questions For questions pertaining to your surgical date [phone] For nursing related questions [phone] On weekends, holidays or after office hours: Call and ask the cutting table operator first to page the Plastic Surgery Resident communications programmer. documented in this encounter Progress Notes * Branden Easley MD - 04/16/2021 9:15 AM EDT Plastic Surgery Consultation Note Provider: Branden Easley M.D. Reason for office visit: Symptomatic macromastia HPI: Harika Potter is a 25 y.o. female who presents today for evaluation of symptomatic macromastia. She complains that her large breast cause significant back,neck shoulder pain and shoulder grooving. She also suffers from chronic rashes underneath her breasts. She does apply lotions and creams to help without real success. She currently wears a size 34DD cup. Post operatively she is hoping to achieve smaller breasts. Possibly C size. 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 Her sister had a breast reduction with Dr. Easley in the past. She has been thinking about proceeding with BBR for 5-6 years. Overall, she is very healthy with no medical complexities. Past Surgical History: Procedure Laterality Date ??? SECTION 2017 Family History Problem Relation Age of Onset ??? No Known Problems Mother ??? No Known Problems Father ??? No Known Problems Sister Examination: BMI: Ht 154.9 cm (5' 1) Wt 72.6 kg (160 lb) BMI 30.23 kg/m?? BSA: Body surface area is 1.77 meters squared. General: On my examination today, the patient appears to be in good health. Her emotional outlook is positive and she asked appropriate questions throughout the visit. Breasts: Bra size: 34DD Goal cup size: C Breast Measurements Right Left Ptosis 2 2 SN-N (cm) 29 29 IMF-N (cm) 8 8 Base diameter 12 12 Masses - - Shoulder grooves + + Rash + + Axillary rolls - - Surgical Scars Breast Vol (estimate in cc) Resection (estimate in gms) Impression: Symptomatic bilateral breast hypertrophy. Bilateral breast reduction is indicated for relief of her breast-related symptoms. She watched the [facility] video on breast reduction, and was provided with an [facility] brochure and informed consent on breast reduction. It reviews the surgical risks, alternate skin incisions and pedicle versus free nipple graft techniques. It also discusses the optionof volume reduction by liposuction alone, which does not alter the nipple- areolar complex position.It talks about the impact of this surgery on decreasing breast cancer risk. We reviewed the timing of surgery relative to weight fluctuations and I've advised that surgery is best done at a realistic [place] [facility] stable weight. We talked about the outpatient nature of the surgery, drains, postoperative recovery, and time required off work. The following risks were reviewed in the video or in our discussion: Surgical Risks which are greater with open reduction: bleeding with risk of hematoma (<5%); numbness, which may be temporary or permanent; scarring, including abnormal scarring; infection (5-10%);fat necrosis resulting in a breast mass and possible need for revision. I stressed the likelihood of minor problems with delayed wound healing (~30%) and the rare complication of nippleareolar necrosis. She is also aware that there may be some residual pain after the surgery and that there may possibly be some asymmetry. Vertical or Lollipop Incision: Less scarring on breast, but slightly greater risk for delayed healing and desire for scar revision. (She was informed that her insurer might not cover secondary revisions for scarring or asymmetry.) Bedolla or [place] Pattern Incision: More scarring on breast, but lower risk for scar revision. (She was informed that her insurer might not cover secondary revisions for scarring or asymmetry.) Pedicle Technique: volume of reduction may be limited by need to provide an adequate blood supply to the nipple. There is a very small risk of nipple loss. Most women (~60%) will be able to breast-feed. Free Nipple Graft: The grafts will initially have no sensation and once fully healed may not respond to temperature and touch as they do now. She has also been informed that they may not look entirely normal and may have patchy hypopigmentation. She will not be able to breast feed with this technique. After fully discussing the options, she has opted to pursue a: Bilateral Breast Reduction Vertical, Pedicle x Bilateral Breast Reduction Bedolla, Pedicle Bilateral Breast Reduction Bedolla, FNG Anticipated resection: 500 grams right breast 500grams left breast BSA [employer] All other / [place] BSA [employer] All others ([place]) 1.77 620 She would like to proceed with surgery and I will inform her PCP of this plan. Photos taken today with informed signed consent Surgery Booking Information: Surgeon: Dave Duration: 2.5 hours Timeframe: Elective Procedure: Bilateral breast reduction CPT: 74934 Surgical Technique: Bilateral Breast Reduction Bedolla, Pedicle Surgical site: Breasts Side: Bilateral Anesthesia: General Follow up: 1 day for drain removal; 7-10 days for HCK ( FNG 1 day f/u for drain removal and a 4-7 day f/u for bolster removal) H&P: no Plan: Proceed with BBR Follow up in one day/7 days. Return to work 3-6 weeks post surgery. I, Fiona Thao, have performed the documentation for this encounter in the presence of and acting as a scribe for BRANDEN EASLEY MD. documented in this encounter Plan of Treatment Not on file documented as of this encounter Visit Diagnoses Diagnosis Macromastia Hypertrophy of breast documented in this encounter Care Teams Outreach Nurse Relationship Specialty Start Date End Date Teri Gomez APRN [address] [place] [address] PCP - General Internal Medicine 08/07/17 documented as of this encounter
--- OUTSIDE RECORDS SUMMARY | 2024-10-18 22:43 | XMS_ITS | Encounter Summary ---
Author Organization [facility] [place] [address] [place] [address] Care Team Providers Care Insurance Sales Assistant Name Role Phone Teri Gomez RUSTAM Primary Care Provider [phone] Reason for Visit * Reason Comments Follow Up Surgery S/p BBR - had some d elayed healing Encounter Details Date Type Department Care Team (Late st Contact Info) Description 11/05/2021 9:45 AM EST Office Visit [place] [address] Branden Easley MD Surgery follow-up Social History Tobacco Use Types Packs/Day Years Used Date Smoking Tobacco: Former Cigarettes 1 3 2 014 - 2016 Smokeless Tobacco: Never Alcohol Use Standard Drinks/Week Comments Yes 0 (1 standard drink = 0.6 oz pur e alcohol) Sex and Gender Information Value Date Recorded Sex Assigned at Female 08/03/2021 3:50 PM EDT Gender Identity Female 08/03/2021 3:50 PM EDT Sexual Orientation Straight 08/03/2021 3: 50 PM EDT documented as of this encounter Progress Notes * Fiona Thao H - 11/05/2021 9:45 AM EST Plastic Surgery Post Op Note Provider: Branden Easley M.D. Reason for visit: F/U status post procedure Date of surgery: 08/06/2021 Procedure(s): Bilateral breast reduction DIGGS with Dr. Easley Complications: None reported HPI: Pt returns to clinic for a follow up visit s/p BBR. Her delay in healing has pretty much resolved. Her back and neck pain have improved significantly. She is happy with her post op breast size. She has normal nipple sensations. Examination: There were no vitals taken for this visit. Patient is alert, conversant, comfortable, ambulating Incision: CDI, healing well. No collection, no erythema, no evidence of cellulitis. No masses Has normal feeling and sensation with the nipples. Impression: Harika Potter is a 26 y.o. female who was seen today for follow-up after the above procedure. Please see the operative note for details. She is doing well without complaints. Great postop results. Plan: Follow up: Fiona CURTIS, have performed the documentation for this encounter in the presence of and acting as a scribe for BRANDEN EASLEY MD. documented in this encounter Plan of Treatment Not on file documented as of this encounter Visit Diagnoses Diagnosis Surgery follow-up Follow-up examination, following unspecified surgery documented in this encounter Care Teams Insurance Sales Assistant Relationship Specialty Start Date End Date Teri Gomez APRN [address] [place] [address] PCP - General Internal Medicine 08/07/17 documented as of this encounter
--- OUTSIDE RECORDS SUMMARY | 2024-10-18 22:43 | XMS_ITS | Encounter Summary ---
Author Organization [facility] Address [facility] [place] [address] [address] Care Team Providers Care Director Power Name Role Phone Patricia, Teri Brasher APRN Primary Care Provider [phone] Reason for Visit * Reason Comments Medication Refill Encounter Details Date Type Department Care Team (Late st Contact Info) Description 10/26/2022 Refill Dermatology at [facility] [address] [place] [address] Dariela Pacheco MD [facility] [address] [place] [address] Acne vulgaris Social History Tobacco Use Types Packs/Day Years Used Date Smoking Tobacco: Former Cigarettes 1 3 2016 Smokeless Tobacco: Never Alcohol Use Standard Drinks/Week Comments Yes 0 (1 standard drink = 0.6 oz pur e alcohol) Sex and Gender Information Value Date Recorded Sex Assigned at Female 08/03/2021 3:50 PM EDT Gender Identity Female 08/03/2021 3:50 PM EDT Sexual Orientation Straight 08/03/2021 3: 50 PM EDT documented as of this encounter Miscellaneous Notes * Telephone Encounter - Manju Wilson CCMA - 10/28/2022 2:14 PM EST Medication requested to refill: Tretinoin 0.025% Cream Last visit: 10/11/2021 Follow up recommended: 2-3 months F/U Scheduled: No; myD-H message sent asking patient to schedule f/u. Assessment/Plan for this/these medications: Acne Vulgaris; apply a pea sized amount to the face nightly. Appropriate to refill: Please advise if 1-tube fill is appropriate to give patient time to schedulef/u. Special Considerations: No Order/orders pended and routed to Dariela Munguia MD for review and approval. Medication requested to refill: Benzaclin 1-5% Gel Last visit: 10/11/2021 Follow up recommended: 2-3 months F/U Scheduled: No; myD-H message sent asking patient to schedule f/u. Assessment/Plan for this/these medications: Acne Vulgaris; apply a dime-sized amount in a thin layer to acne-prone areas on the face every morning after washing. Appropriate to refill: Please advise if 1-jar fill is appropriate to give patient time to schedule f/u. Special Considerations: No Order/orders pended and routed to Dariela Munguia MD for review and approval. documented in this encounter Plan of Treatment Not on file documented as of this encounter Visit Diagnoses Diagnosis Acne vulgaris Other acne documented in this encounter Care Teams Director Power Relationship Specialty Start Date End Date Teri Gomez APRN [address] [place] [address] PCP - General Internal Medicine 08/07/17 documented as of this encounter
--- OUTSIDE RECORDS SUMMARY | 2024-10-18 22:43 | XMS_ITS | Encounter Summary ---
Author Organization [facility] Address [facility] [address] [place] [address] Care Team Providers Care Make Up Man Name Role Phone Teri Gomez APRN Primary Care Provider [phone] Reason for Visit * Consultation (Routine) - Closed Specialty Diagnoses / Procedures Referred By Jorden chong Referred To Contact Dermatology Diagnoses Other hypertrophic disorders of the skin Freckles Teri Gomez APRN [address] [place] [id number] [facility] Dermatology [address] [place] [address] Referral ID Status Reason Start Date Expiration Date V isits Requested Visits Authorized [id number] Closed Consult, [facility] PCP Updated and/or Approved 07/26/2021 07/26/2022 6 6 Encounter Details Date Type Department Care Team (Late st Contact Info) Description 10/11/2021 4:00 PM EST Office Visit Dermatology at [facility] [address] [place] [address] Dariela Pacheco MD [facility] [address] [address] Skin tags, multiple acquired; Acne vulgaris; Multiple benign melanocytic nevi of upper extremity, lower extremity, and trunk; Lentigines; Inflamed acrochordon Social History Tobacco Use Types Packs/Day Years Used Date Smoking Tobacco: Former Cigarettes 1 3 2 014 - 2017 Smokeless Tobacco: Never Alcohol Use Standard Drinks/Week Comments Yes 0 (1 standard drink = 0.6 oz pur e alcohol) Sex and Gender Information Value Date Recorded Sex Assigned at Female 08/03/2021 3:50 PM EDT Gender Identity Female 08/03/2021 3:50 PM EDT Sexual Orientation Straight 08/03/2021 3: 50 PM EDT documented as of this encounter Progress Notes * Dariela Munguia MD - 10/11/2021 4:00 PM EST Images from the original note were not included. DEPARTMENT OF DERMATOLOGY Medical Dermatology Clinic Provider: Dariela Munguia MD Patient's preferred name Harika Preferred contact method for results [x]Phone [x]myD-H []Letter Detailed phone message OK? Yes Are there any other people with whom we may discuss your care? 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 Patient is referred to the clinic at the request of Teri Gomez for a FSE. - She has had two skin tags forever under bilateral axillae. During her last it began to hurt a lot. - Is not breast feeding. Is on an IUD. - Reports that her acne has worsened lately and it is unclear if the IUD impacted this. - She reports she has POTS syndrome. Has not passed out in ears. Reports she takes adderall for ADHD which raises her blood pressure and as such has improved her POTS syndrome. Review of Systems: General: Feeling well. Skin: No other skin concerns. Medications: Reviewed in eD-H Allergies: Reviewed in eD-H Skin Examination: Waist-up skin examination: Patient was asked to disrobe to the level of their comfort. Patient elected to remain clothed below the waist. Examination of the scalp, hair, face, ears, neck, back, chest, abdomen, and upper extremities was normal with the exception of the findings below. Assessment/Plan #. Skin Tags - Sessile, flesh-colored papules on the left axilla x1 and right axilla x1. - Discussed benign nature of lesions and provided reassurance. No treatment necessary at this time. - Patient elects to proceed with cryotherapy today. Procedure: Destruction of lesion(s) with cryotherapy (LN2). Location(s): left axilla Number: 1 Discussed procedure and expectations including risks and benefits. Verbal consent obtained. Treatedwith LN2. There were no complications; Patient tolerated the procedure well. Post-procedure expectations and wound care were reviewed. #. Acne Vulgaris - Erythematous eroded papules on forehead, cheeks, and chin - Discussed pathogenic factors, including comedo formation, hormonal influences, oil production, and irritation from bacterial breakdown of oil products. - Discussed treating with oral or topical therapies or a combination. Both treatments were discussed at length. - Start pending approval from PCP Rx spironolactone. Will call pt's PCP, she gave permission to discuss her care. - Discussed possible side effects, such as headache, dizziness, breast tenderness, and irregular menses, and occasional need for blood work, especially to check potassium levels, depending on dose. - Start Rx tretinoin 0.05% cream: Apply a pea size amount to the face nightly. As it can be irritating, start 2-3 times per week and slowly increase to nightly use. Can also mix with a bland moisturizer to help with irritation. - Start Rx clindamycin-benzoyl peroxide (Benzaclin) 1-5% gel: Apply a dime-sized amount in a thin layer to acne-prone areas on the face every morning after washing. Counseled side effects: redness, irritation #. Melanocytic Nevi- 2-6mm brown macules on trunk and extremities with reassuring pigment pattern on dermoscopy - Discussed benign appearing nevi based on today's exam - Recommended follow-up with dermatology if any changes in any pigmented lesions are noted or any concerns regarding new lesions arise. #. Lentigines - Scattered light-brown, evenly pigmented, well-demarcated macules on sun-exposed areas of the trunk and extremities. - No worrisome pigmented lesions. Discussed benign nature of lesions and provided reassurance. Willcontinue to monitor. Other: ??? N/A RTC: 2-3 months for acne vulgaris or PRN [x]Note routed to escrow secretary []Recall placed in scheduling system []Appointment scheduled at checkout Scribe attestation: Bianca Gabriel has performed the documentation for this encounter in the presence of and acting as a scribe for Dariela Munguia MD. I performed the above scribed service and agree with the accuracy of the documentation in this encounter. Reviewed and signed by: Dariela Munguia MD Dermatology [facility] documented in this encounter Plan of Treatment Not on file documented as of this encounter Visit Diagnoses Diagnosis Skin tags, multiple acquired Acne vulgaris Other acne Multiple benign melanocytic nevi of upper extremity, lower extremity, and trunk Lentigines Other dyschromia Inflamed acrochordon Unspecified hypertrophic and atrophic condition of skin documented in this encounter Care Teams Make Up Man Relationship Specialty Start Date End Date Teri Gomez, OCCUPATIONAL THERAPY PROFESSOR [address] [place] [address] PCP - General Internal Medicine 08/07/17 documented as of this encounter
--- OUTSIDE RECORDS SUMMARY | 2024-10-18 22:43 | XMS_ITS | Encounter Summary ---
Author Organization [facility] Address [facility] [place] [address] Care Team Providers Care Sailing Officer Name Role Phone Teri Gomez APRN Primary Care Provider [phone] Encounter Details Date Type Department Care Team (Late st Contact Info) Description 10/16/2021 Orders Only Dermatology at [address] [address] Dariela Pacheco MD [facility] [address] [place] [address] Social History Tobacco Use Types Packs/Day Years [...] PM EDT documented as of this encounter Plan of Treatment Not on file documented as of this encounter Visit Diagnoses Not on filedocumented in this encounter Care Teams Sailing Officer Relationship Specialty Start Date End Date Teri Gomze APRN [address] [place] [address] PCP - General Internal Medicine 08/07/17 documented as of this encounter
--- OUTSIDE RECORDS SUMMARY | 2024-10-18 22:43 | XMS_ITS | Encounter Summary ---
Author Organization [facility] Address [address] [place] [address] Care Team Providers Care Core Maker Helper Name Role Phone Unknown, Provider Primary Care Provider Unava ilable Encounter Details Date Type Department Care Team (Late st Contact Info) Description 03/30/[address] [facility] Pathology & Laboratory Medicine - [facility] [address] [place] [address] Outr Resulting Lab, Provider Social History Tobacco Use Types Packs/Day Years Used Date Smoking Tobacco: Never Assessed Comments Unknown Sex and Gender Information Value Date Recorded Sex Assigned at Not on file Legal Sex Female 16:03 EDT Gender Identity Not on file Sexual Orientation Not on file documented as of this encounter Plan of Treatment Not on file documented as of this encounter Procedures Procedure Name Priority Date/Time Associated Diagnosis Comments LYME AB Routine 03/30/2020 15:05 EDT documented in this encounter Results * LYME AB (03/30/2020 15:05 EDT) Lyme Ab Negative Negative 03/31/2020 11:29 EDT [facility] Comment: New 3rd generation assay in use 03/08/2020 Blood VENOUS BLOOD / Unknown 03/30/2020 15:05 EDT 03/30/2020 20:30 EDT us Provider Outr Resulting Lab IMMUNOLOGY AND SEROL OGY ORDERABLES Final Result [facility] [address] [place] [address] documented in this encounter Visit Diagnoses Not on filedocumented in this encounter Care Teams Core Maker Helper Relationship Specialty Start Date End Date Unknown, Provider, PCP - General 09/29/19 documented as of this encounter
--- OUTSIDE RECORDS SUMMARY | 2024-10-18 22:43 | XMS_ITS | Encounter Summary ---
Author Organization [facility] [place] [address] Care Team Providers Care Bus Driver Supervisor Name Role Phone Unavailable Primary Care Provider Unavailabl e Reason for Visit * Reason Comments Other chronic abdominal pa in Encounter Details Date Type Department Care Team (Latest Contact Info) Description 03/10/2015 9:00 AM EDT Office Visit Pediatric Gastroenterology at [facility] [place] [id number] Sierra Christy MD Chronic nausea; Irritable bowel syndrome Discharge Disposition: Home Social History Tobacco Use Types Packs/Day Years Used Date Smoking Tobacco: Never Sex and Gender Information Value Date Recorded Sex Assigned at Female 08/03/2021 3:50 PM EDT Gender Identity Female 08/03/2021 3:50 PM EDT Sexual Orientation Straight 08/03/2021 3: 50 PM EDT documented as of this encounter Last Filed Vital Signs Vital Sign Reading Time Taken Comments Blood Pressure 139/62 03/10/2015 8:57 AM EDT right arm Pulse 105 03/10/2015 8:57 AM EDT Temperature - - Respiratory Rate 20 03/10/2015 8:57 AM EDT Oxygen Saturation - - Inhaled Oxygen Concentration - - Weight 54.4 kg (119 lb 14.9 oz) 015 8:57 AM EDT Height 167.2 cm (5' 5.83) 03/10/2015 8 :57 AM EDT Body Mass Index 19.46 03/10/2015 8:57 AM EDT Body Mass Index Percentile 27.55% 03/10 8:57 AM EDT Growth Chart: CDC (Girls, 2- 20 Years) documented in this encounter Patient Instructions * Patient Instructions* Sierra Christy MD - 03/10/2015 9:42 AM EDT Benadryl 25 mg three times a day for 3-4 days. Treatments for irritable bowel. 1. Low fodmap diet 2. Medications-amitriptyline, gabapentin daily to prevent 3. Probiotic VSL 3 Four capsules a day Nausea Peppermint oil or conrad help muscle relax. Judy's tummy tamers has both. Use before each meal Zofran 4-8 mg before events Diarrhea Imodium before events 1-2 tablets Pain -heat on the site Distraction antibiotics documented in this encounter Progress Notes * Sierra Christy MD - 03/10/2015 9:59 AM EDT I saw Harika Potter with her mother March 10, 2015, at the request of Dr. Corrine Strickland for nausea, abdominal pain, and diarrhea. Harika is 19 years old. She has had several years of abdominal pain and nausea. The nausea often starts within a few minutes of eating. She will vomit about once a month, never blood. The nausea can last for hours. She will rest with it. She has about two bowel movements per day; most happen right after she eats. About half are loose, never blood, no nighttime stools. She has no chest pain. No dysphagia. She feels that larger amounts of dairy are more likely to trigger her nausea, but she has it even dairy free. Current diet is no milk, occasional yogurt, small amounts of cheese, occasional soda, 10 ounces of orange juice, good variety of food. She manages this by not eating when she is not home. She has daily abdominal pain, random. It can be epigastric or abdomen. It can be intense. Other Review of Systems: Sleeps well. No recent headaches. No mouth sores. Good energy. Not allergic. The rest is negative. Family History: Father with similar symptoms, though less severe. Mother had negative celiac antibodies but feels better gluten free. Socially, entering twelfth grade, does well in school. Plays field hockey and softball. Does not feel she is very anxious. Has two sisters. Lives with her mom and siblings. Visits dad in [place]. She had normal CBC and CMP, sedimentation rate, CRP. Her tTG was negative. Normal serum IgA. Mid January 2015: Normal thyroid tests. Negative urinalysis. She takes no medications. On exam, Harika appears healthy. Blood pressure is 139/62. Her BMI is 19.4. Belly shape: Flat. No mouth sores. Pupils are reactive. No lymphadenopathy. Normal thyroid. Heart: Normal sounds. Lungs: Clear. Abdomen: No pain, mass, or organomegaly. Anus: Normal. I think Harika has severe irritable bowel. Ulcers are rare in our population. Ulcer pain gets better with eating. Nausea and diarrhea are not common ulcer symptoms. I think the big picture has many features against inflammatory bowel, and celiac was negative, and that is 98% accurate. Her symptoms are very soon after eating and could be mast cells, histamine release, or a strong behavioral component. We are going to try Benadryl 25 mg three times a day. If this is excess mast cells, this will work great. We will do a three- to four-day trial. If it heavily sedates her, they will stop early. If it works great, we will continue it for six or eight weeks, then try coming off. We discussed other options. She will try Zofran 4 to 8 mg when she is going to go out with friends and take one to two Imodium tablets. That should control her irritable bowel symptoms so she can have a meal with friends. I will call in about four or five days. Mother's cell: [phone]. We discussed irritable bowel, and I gave them a list of possible therapies that we may end up trying. documented in this encounter Plan of Treatment Not on file documented as of this encounter Visit Diagnoses Diagnosis Chronic nausea Nausea alone Irritable bowel syndrome documented in this encounter
--- OUTSIDE RECORDS SUMMARY | 2024-10-18 22:43 | XMS_ITS | Encounter Summary ---
Author Organization [facility] Address [address] [place] [address] Care Team Providers Care Stamper Blocker Name Role Phone Unknown, Provider Primary Care Provider Unava ilable Encounter Details Date Type Department Care Team (Late st Contact Info) Description 07/09/2020 Lab Requisition [facility] Pathology & Laboratory Medicine - [facility] [address] [place] [address] Outr Resulting Lab, Provider Social History Tobacco [...] Procedure Name Priority Date/Time Associated Diagnosis Comments CHLAMYDIA/N. GONORRHOEAE AMPLIFIED NUCLEIC ACID Routine 07/07/2020 15:10 EDT documented in this encounter Results * CHLAMYDIA/N. GONORRHOEAE AMPLIFIED RNA (07/07/2020 15:10 EDT) Neisseria gonorrhoeae Result Negative Negative 07/10/2020 15:04 EDT [facility] Chlamydia trachomatis Result Negative Negative 07/10/2020 15:04 EDT [facility] Swab ENTIRE WALL OF CERVIX / Unknown 07/07/2020 15:10 EDT 07/09/2020 16:02 EDT us Provider Outr Resulting Lab MICROBIOLOGY - GENER AL ORDERABLES Final Result [facility] [address] [place] [address] documented in this encounter Visit Diagnoses Not on filedocumented in this encounter Care Teams Stamper Blocker Relationship Specialty Start Date End Date Unknown, Provider, PCP - General 09/29/19 documented as of this encounter
--- OUTSIDE RECORDS SUMMARY | 2024-10-18 22:43 | XMS_ITS | Clinical Summary ---
Author Organization [facility] Address [address] [place] [address] Care Team Providers Care Boatswain Mate Name Role Phone Unknown, Provider Primary Care Provider Unava ilable Social History Tobacco Use Types Packs/Day Years Used Date Smoking Tobacco: Never Assessed Interpersonal Safety Answer Date Record ed Physically Hurt Never 07/06/2020 Verbally Threaten Not on file 07/06/2020 Comments Unknown Sex and Gender Information Value Date Recorded Sex Assigned at Not on file Legal Sex Female 16:03 EDT Gender Identity Not on file Sexual Orientation Not on file Plan of Treatment Health Maintenance Due Date Last Done Comments Hepatitis B Vaccine (1 of 3 - 19+ 3-dose series) 09/10 COVID-19 Vaccine (2023- season) 2024 Hepatitis C Screen Completed 07/13/2020 Procedures Procedure Name Priority Date/Time Associated Diagnosis Comments HEPATITIS C AB W REFLEX TO HCV RNA BY PCR Today 07/13/2020 9:00 EDT from Last 3 Months or Most Recently Relevant to Health Maintenance Results * HEPATITIS C AB W REFLEX TO HCV RNA BY PCR (07/13/2020 9:00 EDT) Hep C Antibody Negative Negative 07/14/2020 9:28 EDT [facility] Blood VENOUS BLOOD / Unknown 07/13/2020 9:00 EDT 07/13/2020 16:13 EDT us Provider Outr Resulting Lab CHEMISTRY & BLOOD GA S ORDERABLES Final Result [facility] [address] [place] [address] from Last 3 Months or Most Recently Relevant to Health Maintenance Insurance [employer] MEDICAID [place] Care Teams Boatswain Mate Relationship Specialty Start Date End Date Unknown, Provider, PCP - General 09/29/19
--- OUTSIDE RECORDS SUMMARY | 2024-10-18 22:43 | XMS_ITS | Encounter Summary ---
Author Organization [facility] [place] [place] [address] Care Team Providers Care Speech Lang Path Name Role Phone Elizabeth Gomezyce Sameera EASTON Primary Care Provider [phone] Encounter Details Date Type Department Care Team (Late st Contact Info) Description 08/20/2017 [place] [phone] Jyoti Troy RN Social History Tobacco Use Types Packs/Day Years Used Date Smoking Tobacco: Never Smokeless Tobacco: Never Sex and Gender Information Value Date Recorded Sex Assigned at Female 08/03/2021 3:50 PM EDT Gender Identity Female 08/03/2021 3:50 PM EDT Sexual Orientation Straight 08/03/2021 3: 50 PM EDT documented as of this encounter Miscellaneous Notes * Telephone Encounter - Jyoti Troy RN - 08/20/2017 4:04 PM EST Patients mother calls the office leaving a message on the RN voicemail stating, Harika saw Maureen back on 08/05/17 and she was going to send some prescriptions to the pharmacy, but the pharmacy has not received them. Returned call to patient, discussed above with patient as there is not a Personal Livestock Showman form on file. Asked patient if the medications she was looking for were the imodium and peppermint oil capsule, patient stated, I think so. made patient aware these medications do not require a prescription andare OTC. Reviewed how Maureen had recommended patient take them. Patient verbalized understanding. documented in this encounter Plan of Treatment Not on file documented as of this encounter Visit Diagnoses Not on filedocumented in this encounter Care Teams Speech Lang Path Relationship Specialty Start Date End Date Teri Gomez APRN [address] [place] [address] PCP - General Internal Medicine 08/07/17 documented as of this encounter
--- OUTSIDE RECORDS SUMMARY | 2024-10-18 22:43 | XMS_ITS | Encounter Summary ---
Author Organization [facility] Address [address] [place] [address] Care Team Providers Care Battery Filler Name Role Phone Unknown, Provider Primary Care Provider Unava ilable Encounter Details Date Type Department Care Team (Late st Contact Info) Description 06/23/2024 Lab Requisition [facility] Pathology & Laboratory Medicine - [facility] [address] [place] [address] Outr Resulting Lab, Provider Social History Tobacco [...] Name Priority Date/Time Associated Diagnosis Comments HEPATITIS B SURFACE ANTIBODY Routine 06/23/2024 13:58 EDT documented in this encounter Results * HEPATITIS B SURFACE ANTIBODY (06/23/2024 13:58 EDT) Hep B Surface Ab, Quantitative 7.3 See Note mIU/mL 06/24/2024 22:48 EDT [facility] Comment: Reference Range for Hep B Surface Ab, Quant: Positive: >= 10.0 mIU/mL Negative: ??< 10.0 mIU/mL Patient is presumed to not be immune to infection with Hepatitis B Virus. Hep B Surface Ab, Qualitative Negative See Note 06/24/2024 22:48 EDT [facility] Comment: Reference Range for Hep B Surface Ab, Qual: Unvaccinated: ??Negative Vaccinated: ??Positive Blood VENOUS BLOOD / Unknown 06/23/2024 13:58 EDT 06/24/2024 21:53 EDT us Provider Outr Resulting Lab CHEMISTRY & BLOOD GA S ORDERABLES Final Result [facility] [address] [place] [address] documented in this encounter Visit Diagnoses Not on filedocumented in this encounter Care Teams Battery Filler Relationship Specialty Start Date End Date Unknown, Provider, PCP - General 09/29/19 documented as of this encounter
--- OUTSIDE RECORDS SUMMARY | 2024-10-18 22:43 | XMS_ITS | Encounter Summary ---
Author Organization [facility] [place] [address] Care Team Providers Care Clinic Assistant Name Role Phone Teri Gomez APRN Primary Care Provider [phone] Encounter Details Date Type Department Care Team (Latest Contact Info) Description 11/05/2021 Travel Social History Tobacco Use Types Packs/Day Years Used Date Smoking Tobacco: Former Cigarettes 1 2016 Smokeless Tobacco: Never Alcohol Use Standard [...] on filedocumented in this encounter Care Teams Clinic Assistant Relationship Specialty Start Date End Date Teri Gomez APRN [address] [place] [address] PCP - General Internal Medicine 08/07/17 documented as of this encounter
--- OUTSIDE RECORDS SUMMARY | 2024-10-18 22:43 | XMS_ITS | Encounter Summary ---
Author Organization [facility]ly [facility], Later [facility] Address [facility] [place] [address] Care Team Providers Care Washroom Operator Name Role Phone Unavailable Primary Care Provider Unavailabl e Reason for Visit * Reason Comments Rash * Consultation (Routine) - Specialty Diagnoses / Procedures Referred By Contac t Referred To Contact Dermatology Diagnoses Rash on both hands Procedures Rash on both hands Will Kaur MD [address] [place] [address] [place] [address] [facility] Dermatology [address] [place] [address] Referral ID Status Reason Start Date Expiration Date V isits Requested Visits Authorized [id number] 11/05/2016 11/05/2017 1 1 Encounter Details Date Type Department Care Team (Late st Contact Info) Description 11/08/2016 11:30 AM EST Office Visit Dermatology at [facility] [address] [place] [id number] Jone Morales MD Dermatitis Social History Tobacco Use Types Packs/Day Years Used Date Smoking Tobacco: Never Sex and Gender Information Value Date Recorded Sex Assigned at Female 08/03/2021 3:50 PM EDT Gender Identity Female 08/03/2021 3:50 PM EDT Sexual Orientation Straight 08/03/2021 3: 50 PM EDT documented as of this encounter Progress Notes * Jone Morales MD - 11/08/2016 11:30 AM EST Images from the original note were not included. NEW PATIENT NOTE Date of service: 11/08/2016 Harika Potter : 1995 Dermatology Resident Note: Jone Morales MD Chief Complaint Patient presents with ??? Rash Ms. Harika Potter is a 21 y.o. female. This is a new patient to me. Seen in consultation at the request of Will Kaur specifically for the evaluation and management of the above problem. HPI: Ms. Potter presents for a rash on her hands. It has been present for 4-5 months. It has spread on her hands since she has had it. It gets worse at work. 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 She has tried lotrimin as her PCP thought it was yeast but that did not help at all. She has been using lotion on it, non-scented Lubriderm with no change. She reports it is dry and cracked, painful at times. It is also very itchy. She denies having any rashes in the past. Patient is currently . Past Skin History: None Medical History: Patient Active Problem List Diagnosis Code ??? Irritable bowel syndrome K58.9 ??? Chronic nausea R11.0 Medications: Current Outpatient Prescriptions on File Prior to Visit Medication Sig Dispense Refill ??? Norelgestrom-Ethinyl Estradiol (ORTHO EVRA) 150-35 mcg/24 hr Patch Weekly WEEKLY ??? ondansetron (ZOFRAN-ODT) 8 mg Tablet, Rapid Dissolve Take 1 tablet by mouth every 8 hours as needed for Nausea. 20 tablet 11 No current facility-administered medications on file prior to visit. Allergies: No Known Allergies Family History: Grandmother with skin cancer ? 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 An abbreviated skin exam was performed. This includes: the hands Specific skin findings: 1. Scaly red plaques involving the dorsal hands Photo taken and charted with patient consent Diagnosis/Assessment/Treatment Plan: 1. Contact Dermatitis: suspect a work related dermatitis. 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 I suspect an irritant, but an concomitant allergic reaction is also possible. This was discussed with her and strategies to avoid these - including bar soap Dove from home placed by the sink at work, carrying a Vaseline to place on her hands after getting her hands wet, and for the time being, triamcinolone ointment to use as below. I asked that she RTC for re-evaluation, but she preferred that she let me know if she does not make any headway - consideration for patch testing in the future is reasonable if dermatitis remains refractory. Prescriptions: Rx: triamcinolone (KENALOG) 0.1 % Ointment- Apply topically to the hands twice daily for periods oftwo weeks at a time Recommendations: - Recommended patient wash her hands with her own personal soap at work - Dove Sensitive Skin Bar Soap - Moisturize hands with a bland moisturizer such as CeraVe after each hand washing - If symptoms do not improve, patch testing may be warranted in the future RTC: MARBELLA Chaudhari LPN and Dania Rinaldi, Clinical Scribe, I am documenting this encounter acting as the scribe for and in the presence of I performed the above scribed service and agree with the accuracy of the documentation in this encounter, Jone Morales MD Reviewed and signed by Jone Morales MD Resident in Dermatology [facility] Patient seen and evaluated with staff furnace cleaner: Flex Curran MD Section of Dermatology [facility] * Flex Curran MD - 11/08/2016 11:30 AM EST I was the supervising physician working with dermatology resident Dr. Tarun Morales in the dermatology clinic during this patient visit. The level of resident supervision for this patient visit was indirect supervision with direct supervision immediately available. (Definition: [facility] Policy Statement on Graduate Medical Education, Supervision of Graduate Medical Trainees) I was immediately available to Dr. Morales for questions and discussion regarding this visit. I have reviewed his encounter note details and level of service. FLEX CURRAN MD Staff Physician documented in this encounter Plan of Treatment Not on file documented as of this encounter Visit Diagnoses Diagnosis Dermatitis Contact dermatitis and other eczema, due to unspecified cause documented in this encounter
--- OUTSIDE RECORDS SUMMARY | 2024-10-18 22:43 | XMS_ITS | Encounter Summary ---
Author Organization [facility] Address [address] [place] [address] Care Team Providers Care Shared Services Manager Name Role Phone Unknown, Provider Primary Care Provider Unava ilable Encounter Details Date Type Department Care Team (Late st Contact Info) Description 07/11/2020 Lab Requisition [facility] Pathology & Laboratory Medicine - [facility] [address] [place] [address] Sangeeta Isabel MD [address] [place], [place] [id number] Encounter for screening for other viral diseases Social History Tobacco Use Types Packs/Day Years [...] Procedure Name Priority Date/Time Associated Diagnosis Comments DO NOT ORDER STANDALONE - BROAD COVID TEST Today 07/11/2020 7:10 EDT Encounter for screening for other viral diseases COVID-19 TESTING Today 07/11/2020 7:10 EDT Encounter for screening for other viral diseases documented in this encounter Results * DO NOT ORDER STANDALONE - BROAD COVID TEST (07/11/2020 7:10 EDT) COVID-19 rt-PCR Result NEGATIVE Negative 07/12/2020 21:54 EDT [facility] Comment: 2019-novel Coronavirus (2019-nCoV) not detected by the qRT-PCR assay. Consider testing for other respiratory viruses or re-collecting for 2019-nCoV testing. Note: Optimum timing for peak viral levels during infections caused by 2019-nCoV have not been determined. Collection of multiple specimens from the same patient may be necessary to detect the virus. Limitations Positive results are indicative of active infection with SARS-CoV-2 but do not rule out bacterial infection or co-infection with other viruses. The agent detected may not be the definite cause of disease. In addition, detection of viral RNA may not indicate the presence of infectious virus or that SARS-CoV-2 is the causative agent for clinical symptoms. Negative results do not preclude SARS-CoV-2 infection and should not be used as the sole basis for patient management decisions. Negative results must be combined with clinical observations, patient history, and epidemiological information. False negative results may also occur if amplification inhibitors are present in the specimen or if inadequate numbers of organisms are present in the specimen. Optimum specimen types and timing for peak viral levels during infections caused by SARS-CoV-2 have not been fully determined. Collection of multiple specimens (types and time points) from the same patient may be necessary to detect the virus. The test was validated for use with upper respiratory specimens obtained via nasopharyngeal or oropharyngeal swabs in VTM, UTM, M4, M5, M6, saline, and MTM media. The performance of this test has not been established for other specimens. Specimens collected using other FDA recommended Specimen Collection Materials listed in the FDA COVID-19 Diagnostic Technologies communication (December 23, 2019) are processed with the caveat that they were not all validated for use with this test and the result must be interpreted in this context. Furthermore, a false negative results may occur if a specimen is improperly collected, transported or handled. If the virus mutates in the RT-PCR target region, SARS-CoV-2 may not be detected or may be detected less predictably. Inhibitors or other types of interference may produce a false negative result. An interference study evaluating the effect of common cold medications was not performed. This test is not FDA-cleared but its performance characteristics were established by our CLIA-certified, CAP-accredited, high complexity laboratory in accordance with CLIA regulations, [employer] [place] [employer] (CAP) guidelines (Dec 16, 2019), and FDA guidance (Nov 27, 2019). This test is only for use under the Food and Drug Administration's Emergency Use Authorization. Swab ENTIRE NASOPHARYNX / Unknown Not Given / Unknown 07/11/2020 7:10 EDT 07/11/2020 21:19 EDT Sangeeta Isabel MD MICROBIOLOGY - GENERA L ORDERABLES Final Result [facility] [place], [place] * COVID-19 TESTING (07/11/2020 7:10 EDT) COVID-19 rt-PCR Result NEGATIVE Negative 07/12/2020 23:49 EDT [facility] Comment: 2019-novel Coronavirus (2019-nCoV) not detected by the qRT-PCR assay. Consider testing for other respiratory viruses or re-collecting for 2019-nCoV testing. Note: Optimum timing for peak viral levels during infections caused by 2019-nCoV have not been determined. Collection of multiple specimens from the same patient may be necessary to detect the virus. Limitations Positive results are indicative of active infection with SARS-CoV-2 but do not rule out bacterial infection or co-infection with other viruses. The agent detected may not be the definite cause of disease. In addition, detection of viral RNA may not indicate the presence of infectious virus or that SARS-CoV-2 is the causative agent for clinical symptoms. Negative results do not preclude SARS-CoV-2 infection and should not be used as the sole basis for patient management decisions. Negative results must be combined with clinical observations, patient history, and epidemiological information. False negative results may also occur if amplification inhibitors are present in the specimen or if inadequate numbers of organisms are present in the specimen. Optimum specimen types and timing for peak viral levels during infections caused by SARS-CoV-2 have not been fully determined. Collection of multiple specimens (types and time points) from the same patient may be necessary to detect the virus. The test was validated for use with upper respiratory specimens obtained via nasopharyngeal or oropharyngeal swabs in VTM, UTM, M4, M5, M6, saline, and MTM media. The performance of this test has not been established for other specimens. Specimens collected using other FDA recommended Specimen Collection Materials listed in the FDA COVID-19 Diagnostic [employer] communication (December 23, 2019) are processed with the caveat that they were not all validated for use with this test and the result must be interpreted in this context. Furthermore, a false negative results may occur if a specimen is improperly collected, transported or handled. If the virus mutates in the RT-PCR target region, SARS-CoV-2 may not be detected or may be detected less predictably. Inhibitors or other types of interference may produce a false negative result. An interference study evaluating the effect of common cold medications was not performed. This test is not FDA-cleared but its performance characteristics were established by our CLIA-certified, CAP-accredited, high complexity laboratory in accordance with CLIA regulations, [employer] [place] [employer] (CAP) guidelines (Dec 16, 2019), and FDA guidance (Nov 27, 2019). This test is only for use under the Food and Drug Administration's Emergency Use Authorization. Performing Lab [facility] [place] 07/12/2020 23:49 EDT [facility] Swab Not Given / Unknown 07/11/2020 7:10 EDT 07/11/2020 21:19 EDT Sangeeta Isabel MD MICROBIOLOGY - GENERA L ORDERABLES Final Result [facility] [address] [place], [place] [id number] [place] [address] LABORATORY [place], [place] documented in this encounter Visit Diagnoses Diagnosis Encounter for screening for other viral diseases documented in this encounter Care Teams Shared Services Manager Relationship Specialty Start Date End Date Unknown, Provider, PCP - General 09/29/19 documented as of this encounter
--- OUTSIDE RECORDS SUMMARY | 2024-10-18 22:43 | XMS_ITS | Encounter Summary ---
Author Organization [facility] Address [address] [place] [address] Care Team Providers Care Pan Operator Name Role Phone Unknown, Provider Primary Care Provider Unava ilable Encounter Details Date Type Department Care Team (Late st Contact Info) Description 06/07/2022 Lab Requisition [facility] Pathology & Laboratory Medicine - [facility] [address] [place] [address] Outr Resulting Lab, Provider Social History Tobacco [...] Procedure Name Priority Date/Time Associated Diagnosis Comments QUANTIFERON MITOGEN (PERFORMABLE) Today 06/06/2022 12:52 EDT QUANTIFERON TB2 (PERFORMABLE) Today 06/06/2022 12:52 EDT QUANTIFERON TB1 (PERFORMABLE) Today 06/06/2022 12:52 EDT QUANTIFERON NIL (PERFORMABLE) Today 06/06/2022 12:52 EDT QUANTIFERON INTERPRETATION (PERFORMABLE) Today 06/06/2022 12:52 EDT QUANTIFERON TB GOLD PLUS Routine 06/06/2022 12:52 EDT documented in this encounter Results * QUANTIFERON INTERPRETATION (PERFORMABLE) (06/06/2022 12:52 EDT) Quantiferon Interpretation Negative Negative 06/10/2022 14:14 EDT [facility] Comment:No interferon-gamma response to M. tuberculosis antigens was detected. ??Infection with M. tuberculosis is unlikely. A single negative result does not exclude infection with M. tuberculosis. ??In patients at high risk for M. tuberculosis infection, a second test should be considered. TB1 Ag minus Nil 0.00 IU/ml 06/10/20 14:14 EDT [facility] TB2 Ag minus Nil 0.02 IU/mL 06/10/20 14:14 EDT [facility] Blood VENOUS BLOOD / Unknown 06/06/2022 12:52 EDT 06/10/2022 13:04 EDT Narrative [facility] - 06/10/2022 14:14 EDT Results were obtained with the [employer] QuantiFERON-TB Gold Plus CLIA. New platform in use 06/06/2021 us Provider Outr Resulting Lab IMMUNOLOGY AND SEROL OGY ORDERABLES Final Result Performing Organization Address [facility] Co de Phone Number [facility] [address] [place] [phone] * QUANTIFERON MITOGEN (PERFORMABLE) (06/06/2022 12:52 EDT) Blood VENOUS BLOOD / Unknown 06/06/2022 12:52 EDT 06/07/2022 19:11 EDT us Provider Outr Resulting Lab IMMUNOLOGY AND SEROL OGY ORDERABLES Final Result Performing Organization Address [facility] Co de Phone Number [facility] [address] [place] [phone] * QUANTIFERON TB2 (PERFORMABLE) (06/06/2022 12:52 EDT) Blood VENOUS BLOOD / Unknown 06/06/2022 12:52 EDT 06/07/2022 19:11 EDT us Provider Outr Resulting Lab IMMUNOLOGY AND SEROL OGY ORDERABLES Final Result Performing Organization Address [facility] Co de Phone Number [facility] [address] [place] [phone] * QUANTIFERON TB1 (PERFORMABLE) (06/06/2022 12:52 EDT) Blood VENOUS BLOOD / Unknown 06/06/2022 12:52 EDT 06/07/2022 19:11 EDT us Provider Outr Resulting Lab IMMUNOLOGY AND SEROL OGY ORDERABLES Final Result Performing Organization Address City/[facility] Co de Phone Number [facility] [address] [place] [address] * QUANTIFERON NIL (PERFORMABLE) (06/06/2022 12:52 EDT) Blood VENOUS BLOOD / Unknown 06/06/2022 12:52 EDT 06/07/2022 19:11 EDT us Provider Outr Resulting Lab IMMUNOLOGY AND SEROL OGY ORDERABLES Final Result Performing Organization Address City/[facility] Co de Phone Number [facility] [address] [place] [address] documented in this encounter Visit Diagnoses Not on filedocumented in this encounter Care Teams Pan Operator Relationship Specialty Start Date End Date Unknown, Provider, PCP - General 09/29/19 documented as of this encounter
--- OUTSIDE RECORDS SUMMARY | 2024-10-18 22:43 | XMS_ITS | Encounter Summary ---
Author Organization [facility] Address [address] [place] [address] Care Team Providers Care Account Services Representative Name Role Phone Unknown, Provider Primary Care Provider Unava ilable Encounter Details Date Type Department Care Team (Late st Contact Info) Description 01/01/2021 Lab Requisition [facility] Pathology & Laboratory Medicine - [facility] [address] [place] [address] Rashmi Walton MD [address] [place] [address],[address] [place] [id number] Encounter for other general examination Social History Tobacco Use Types Packs/Day Years [...] Procedure Name Priority Date/Time Associated Diagnosis Comments SURGICAL PATHOLOGY Today 12/29/2020 14 :36 EDT Encounter for other general examination documented in this encounter Results * SURGICAL PATHOLOGY (12/29/2020 14:36 EDT) Final Diagnosis A. FALLOPIAN TUBE, RIGHT, SALPINGECTOMY: - Fallopian tube with no specific pathologic features. B. FALLOPIAN TUBE, LEFT, SALPINGECTOMY: - Fallopian tube with no specific pathologic features. 01/03/2021 13:45 EDT [facility] Attestation By the signature below, the attending physician certifies that they have 1) personally conducted a gross and/or microscopic examination of the described specimen(s), and/or personally interpreted the results of laboratory testing of the described specimen(s), and 2) personally rendered or confirmed the above diagnosis. 01/03/2021 13:45 EDT [facility] at 1345 Clinical History Desire for sterilization 01/03/2021 13:45 EDT [facility] Gross Description A. Received in formalin labelled with proper patient identification (initials W, M) and R fallopian tube is a fimbriated fallopian tube (6.7 cm in length by 0.5 cm in diameter). The serosa is dark purple and hyperemic with cut surfaces showing an edematous lumen. The longitudinally bisected fimbria and two cross sections are submitted in A1-A2. B. Received in formalin labelled with proper patient identification (initials W, M) and L fallopian tube is a fimbriated fallopian tube (8.1 cm in length by 0.6 cm in diameter). The fallopian tube is dark purple and hyperemic with cut surfaces showing an edematous lumen. The longitudinally bisected fimbria and two cross sections are submitted in B1-B2. GLENN WYNN(ASCP) 01/01/2021 9:26 01/03/2021 13:45 EDT [facility] Performing Lab [facility] 01/03/2021 13:45 EDT [facility] Scanned Images 01/03/2021 13:45 EDT [facility] Tissue ENTIRE FALLOPIAN TUBE / Unknown 12/29/2020 14:36 EDT 01/01/2021 7:50 EDT Tissue specimen (specimen) FALLOPIAN TUBE STRUCTURE / Unknown 12/29/2020 14:36 EDT 01/01/2021 7:50 EDT us Rashmi Walton MD PATHOLOGY ORDERABLES Final Res ult [facility] [address] [place] [address] documented in this encounter Visit Diagnoses Diagnosis Encounter for other general examination documented in this encounter Care Teams Account Services Representative Relationship Specialty Start Date End Date Unknown, Provider, PCP - General 09/29/19 documented as of this encounter
--- OUTSIDE RECORDS SUMMARY | 2024-10-18 22:43 | XMS_ITS | Encounter Summary ---
Author Organization [facility] [place] [address] [place] [address] Care Team Providers Care Air Traffic Coordinator Name Role Phone Elizabeth Gomezyce Sameera EASTON Primary Care Provider [phone] Reason for Visit * Reason Comments Follow Up Surgery s/p BBR 08/06 - drain output 45cc since yesterday Encounter Details Date Type Department Care Team (Latest Contact Info) Description 08/07/2021 1:00 PM EST Clinical [place] [address] Surgery follow-up Social History Tobacco Use Types [...] PM EDT documented as of this encounter Patient Instructions * Patient Instructions* Kadie Curiel RN - 08/07/2021 1:00 PM EST Signs of Infection : A temperature over 100.4 F or 38 C. Redness at the incision line that is beginning to spread away from the incision after the first 48 hours. Yellow pus-like or foul smelling drainage larger than a dime size from the incision or drain sites. Increased pain / discomfort that is not relieved by your pain medicine such as extra strength tylenol, or NSAIDS For any of these symptoms please call our nurse's line at [phone] M - F 8 - 5 For after hours, and on weekends; Call [phone] and ask for our plastic surgeon consumer recruiter Your drains have removed your drain(s) have a compression dressing. You may remove the dressing in 24 hours and shower. After showering, you may cover the drain site(s) with a band aid,or guaze if still draining a largeamount of fluid. The drain site is typically closed in approximately three days. Please call the clinic with any questions or concerns @ [phone] Friday through Friday from 8-5. On weekends, nights, or holidays, call the Main Hospital number @ [phone] and ask for the Plastic Surgeon consumer recruiter. documented in this encounter Progress Notes * Kadie Curiel RN - 08/07/2021 1:00 PM EST Plastic Surgery Breast Reduction Drain Removal Note Date of surgery:08/06/21 Procedure(s): Bilateral breast reduction DIGGS with Subjective : Harika reports mild discomfort using extra strength tylenol effect.She is happy with her results. Objective : Bilateral drains are about 40 mL since yesterday does meet criteria for removal today. Drain sites cleansed with a wound cleanser and dry dressings re applied with instructions to leave this dressing in place for 24 hours. Both breasts are soft and equal in size. Swelling: mild bilaterally Bruising: mild bilaterally The incision lines are well approximated with sasha. The NACs have good perfusion. Nipples have normal projection. Areolar incisions are approximated with no drainage. Surgical bra fitted and in use. Assessment : There no signs of delayed healing, erythema, or fluid collection. Incisions CDI Plan : We reviewed instructions on drain site and incisional care, showering, pain control, and activity restrictions as outlined in our post op brochure. We reviewed parameters for normal post operative swelling and bruising as stated in our post op brochures.Harika agrees with plan of care,and was instructed to call with any concerns. Hospital check appointment next week scheduled with Dr. Acosta for bra fitting , pathology report , incision check,, staple removal. . documented in this encounter Plan of Treatment Not on file documented as of this encounter Visit Diagnoses Diagnosis Surgery follow-up Follow-up examination, following unspecified surgery documented in this encounter Care Teams Air Traffic Coordinator Relationship Specialty Start Date End Date Teri Gomez APRN [address] [place] [address] PCP - General Internal Medicine 08/07/17 documented as of this encounter
--- OUTSIDE RECORDS SUMMARY | 2024-10-18 22:43 | XMS_ITS | Encounter Summary ---
Author Organization [facility] [place] [place] [address] Care Team Providers Care Billiard Table Repairer Name Role Phone Elizabeth Gomezyce Sameera EASTON Primary Care Provider [phone] Encounter Details Date Type Department Care Team (Latest Contact Info) Description 08/17/2021 4:00 PM EST Clinical [place] [id number] Follow-up examination, following other surgery Social History Tobacco Use Types Packs/Day Years Used Date Smoking Tobacco: Former Cigarettes 1 3 014 2016 Smokeless Tobacco: Never Alcohol Use Standard Drinks/Week Comments Yes 0 (1 standard drink = 0.6 oz pur e alcohol) Sex and Gender Information Value Date Recorded Sex Assigned at Female 08/03/2021 3:50 PM EDT Gender Identity Female 08/03/2021 3:50 PM EDT Sexual Orientation Straight 08/03/2021 3: 50 PM EDT documented as of this encounter Patient Instructions * Patient Instructions* Heaven Elliott RN - 08/17/2021 4:00 PM EST Patient Instructions Follow up: in [address] Acosta Care of Incision/Wound: Leave steri strips on until they fall off Activity Restrictions: From the date of your surgery we would request that you don't do any heavy, lifting, pushing, pulling, anything over 5 pounds for 6 weeks after your surgery, Unless other restrictions were discussed with your surgeon. Wear compression garment as instructed Spitting sutures: Occasionally an area of redness and tenderness develops where a dissolving stitchbecomes irritated and pushes to the surface. This stitch is clear or white and looks like fish line. If this occurs, it is not an emergency. You may clip the stitch or call the clinic for an appointment with the nurse. Drains: We have removed your drain(s) and applied a dressing. You may remove the dressing in 24 hours and shower. After showering, you may cover the drain site(s) with a bandaid. The drain site is typically closed in approximately three days. Signs of Infection : A temperature over [...] such as extra strength tylenol, or NSAIDS -SCAR MASSAGE TECHNIQUE: to begin 4-6 weeks following surgery What is a scar? When an injury occurs, the body immediately begins to repair itself & the area becomes swollen & sore. Eventually small collagen fibers form, becoming a solid tissue that results in a scar. This scar will continue to change in appearance for 1-2 years. Ideally, a scar is smooth & flat, blending in with the surrounding skin. However, some scars may become highly visible & unattractive due to factors such as your age, scar location & size, nutrition, genetics, or infection. A hypertrophic scar occurs when there is an excess production of collagen tissue that is elevated but remains within the wound boundaries. The scar is tense, red, & can be associated with itching & tenderness. A hypertrophic scar can be ordinary (usually stabilizes in 3 months & may even get smaller and smoother) or keloid. The keloid scar invades nearby tissue that was not part of the original wound, tends to enlarge even after 6 months & does not get softer. Will scar massage make my scars disappear? Nothing can make scars disappear. However, massaging the scar assists the body in breaking down thescar tissue to give it a flatter, softer, appearance. Massage also mobilizes the scar, preventing it from adhering to underlying tissue, tendons, & nerves. You can make the greatest difference in the appearance of the scar if you massage it in the first 3months. What should I use on my scars? You will hear many recommendations. This clinic finds that it is the massage itself that reduces the scar & not necessarily the choice of ointments or creams. We do discourage the use of Vitamin E oil, however, due to studies that have reported scar inflammation & deterioration. How do I massage my scars? Apply the lotion or cream into the scar 3-4 times a day for 8 weeks on new scars, and 3-4 times perday for 3 to 6 months on existing scars. Using your finger, apply pressure to the scar in a crosswise & circular direction, bearing down as hard as tolerated. Remember to protect your scar from the sun, especially in the first 6-12 months, by using a moisturizer with sunblock and wearing a physical barrier (ie: a hat) when possible For any questions or concerns, please call our nurse's line at [phone] M - F 8 - 5 For after hours, and on weekends; Call [phone] and ask for our plastic surgeon personnel officer documented in this encounter Progress Notes * Heaven Elliott RN - 08/17/2021 4:00 PM EST Reason for Visit: Postoperative Evaluation s/p Date of surgery:08/06/21 Procedure(s): Bilateral breast reduction DIGGS with POD # 11 Harika is here for an incision check and staple removal. Subjective: Harika states she has no discomfort, she states has not needed to take anything for pain. She states she is happy with the results. Objective: Bruising: mild bilaterally breasts Swelling: mild bilaterally breasts [facility] removed Incisions cleansed with wound care wash and steri strips applied Pathology report reviewed - benign breast tissue Dr. Acosta in to examine patient Assessment: No signs of delayed healing,erythema,or fluid collection.Incisions CDI. Plan: We reviewed post op incision instructions including: Begin scar massage in four to six weeks, instructions provided in avs. We reviewed signs and symptoms of infection, spitting sutures, parameters for normal post op swelling and bruising. We reviewed correct phone numbers to call us for concerns. Dressing instructions: Leave steri strips on until they all off Wear compression bra as instructed Harika expressed understanding of instructions,and agrees with the plan of care. Follow up in 3 months or sooner with Dr. Acosta for wound / incision check. documented in this encounter Plan of Treatment Not on file documented as of this encounter Visit Diagnoses Diagnosis Follow-up examination, following other surgery documented in this encounter Care Teams Billiard Table Repairer Relationship Specialty Start Date End Date Teri Goemz APRN [address] [place] [address] PCP - General Internal Medicine 08/07/17 documented as of this encounter
--- OUTSIDE RECORDS SUMMARY | 2024-10-18 22:43 | XMS_ITS | Encounter Summary ---
Author Organization [facility] Address [address] [place] [address] Care Team Providers Care Dobby Loom Chain Pegger Name Role Phone Unknown, Provider Primary Care Provider Unava ilable Encounter Details Date Type Department Care Team (Late st Contact Info) Description 11/12/2019 Lab Requisition [facility] Pathology & Laboratory Medicine - [address] [address] Unknown, Provider, Social History Tobacco Use Types Packs/Day Years [...] Comments CHLAMYDIA/N. GONORRHOEAE AMPLIFIED NUCLEIC ACID Routine 11/12/2019 15:35 EST documented in this encounter Results * CHLAMYDIA/N. GONORRHOEAE AMPLIFIED RNA (11/12/2019 15:35 EST) Neisseria gonorrhoeae Result Negative Negative 11/16/2019 7:15 EST [facility] Chlamydia trachomatis Result Negative Negative 11/16/2019 7:15 EST [facility] ZZUNK 11/12/2019 15:3 5 EST 11/15/2019 8:44 EST us Provider Unknown MICROBIOLOGY - GENERAL ORDER PAULO Final Result [facility] [address] [place] [address] documented in this encounter Visit Diagnoses Not on filedocumented in this encounter Care Teams Dobby Loom Chain Pegger Relationship Specialty Start Date End Date Unknown, Provider, PCP - General 09/29/19 documented as of this encounter
--- OUTSIDE RECORDS SUMMARY | 2024-10-18 22:43 | XMS_ITS | Encounter Summary ---
Author Organization [facility] Address [address] [place] [address] Care Team Providers Care Applications Engineer Manufacturing Name Role Phone Unknown, Provider Primary Care Provider Unava ilable Encounter Details Date Type Department Care Team (Late st Contact Info) Description 11/15/2019 Lab Requisition [facility] Pathology & Laboratory Medicine - [facility] [address] [place] [address] Rashmi Walton MD [address] [place] [address] [address] [place] [address] [phone] Encounter for other general examination Social History [...] Procedure Name Priority Date/Time Associated Diagnosis Comments PAP TEST Today 11/12/2019 15:35 EST Encounter for other general examination documented in this encounter Results * PAP TEST (11/12/2019 15:35 EST) Specimens A. Cervix and/or Endocervix, , ThinPrep Imaging System with Manual Evaluation 11/23/2019 11:22 [facility] Specimen Adequacy Satisfactory for Evaluation - transformation zone component present 11/23/2019 11:22 [facility] General Categorization Negative for intraepithelial lesion or malignancy 11/23/2019 11:22 [facility] Attestation By the signature below, the attending physician certifies that they have personally conducted a gross and/or microscopic examination of the described specimens and rendered or confirmed the above diagnosis. 11/23/2019 11:22 [facility] at 1122 Clinical History NONE 11/23/19 20 11:22 EST [facility] Scanned Images 11/23/2019 11:22 EST [facility] Papanicolaou smear specimen (specimen) CERVIX UTERI STRUCTURE / Unknown 11/12/2019 15:35 EST 11/15/2019 10:53 EST us Rashmi Walton MD PATHOLOGY ORDERABLES Final Res ult [facility] [address] [place] [address] documented in this encounter Visit Diagnoses Diagnosis Encounter for other general examination documented in this encounter Care Teams Applications Engineer Manufacturing Relationship Specialty Start Date End Date Unknown, Provider, PCP - General 09/29/19 documented as of this encounter
--- OUTSIDE RECORDS SUMMARY | 2024-10-18 22:43 | XMS_ITS | Encounter Summary ---
Author Organization [facility] Address [address] [place] [address] Care Team Providers Care Field Service Consultant Name Role Phone Unknown, Provider Primary Care Provider Unava ilable Encounter Details Date Type Department Care Team (Late st Contact Info) Description 07/13/2020 Lab Requisition [facility] Pathology & Laboratory Medicine - [facility] [address] [place] [address] Outr Resulting Lab, Provider Social History Tobacco [...] Procedure Name Priority Date/Time Associated Diagnosis Comments HIV 1/2 ANTIGEN AND ANTIBODY, 4TH GENERATION Routine 07/13/2020 9:00 EDT documented in this encounter Results * HIV 1/2 ANTIGEN AND ANTIBODY, 4TH GENERATION (07/13/2020 9:00 EDT) HIV 1 and 2 Antibody/p24 Antigen, 4th Generation Negative Negative 07/14/2020 9:06 EDT [facility] Comment: If acute HIV-1 infection is suspected in a high risk ??patient, submit plasma specimen for HIV-1 RNA quantitation test. Fourth Generation assay performed on the Siemens Centaur. Blood VENOUS BLOOD / Unknown 07/13/2020 9:00 EDT 07/13/2020 16:13 EDT us Provider Outr Resulting Lab IMMUNOLOGY AND SEROL OGY ORDERABLES Final Result [facility] [address] [place] [address] documented in this encounter Visit Diagnoses Not on filedocumented in this encounter Care Teams Field Service Consultant Relationship Specialty Start Date End Date Unknown, Provider, PCP - General 09/29/19 documented as of this encounter
--- OUTSIDE RECORDS SUMMARY | 2024-10-18 22:43 | XMS_ITS | Encounter Summary ---
Author Organization [facility] [place] [address] Care Team Providers Care Student Admissions Clerk Name Role Phone Patricia, Teri Brasher APRN Primary Care Provider [phone] Reason for Visit * Auth/Cert Specialty Diagnoses / Procedures Referred By Jorden chong Referred To Contact Diagnoses macromastia Procedures PRO REDUCTION OF LARGE BREAST REDUCTION MAMMOPLASTY, TIMOTHY (WRVU 16.03) MODIFIER DIGGS SEE PROTOCOL Referral ID Status Reason Start Date Expiration Date Visits Re quested Visits Authorized [id number] 1 1 Encounter Details Date Type Department Care Team (Late st Contact Info) Description 08/06/2021 7:30 AM EST - 08/06/2021 10:20 AM EST Surgery [place] [phone] Branden Easley MD REDUCTION MAMMOPLASTY, TIMOTHY (WRVU 16.03) Social History Tobacco Use Types Packs/Day Years [...] Sign Reading Time Taken Comments Blood Pressure 98/48 08/06/2021 9:23 AM EST Pulse 80 08/06/2021 9:23 AM EST Temperature 36.2 ??C (97.2 ??F) 08/06/2021 9:23 AM ES T Respiratory Rate 16 08/06/2021 6:45 AM EST Oxygen Saturation 100% 08/06/2021 9:23 AM EST Inhaled Oxygen Concentration - - Weight 65.8 kg (145 lb) 08/06/2021 6:43 AM EST Height 165.1 cm (5' 5) 08/06/2021 6:43 AM EST Body Mass Index 24.13 08/06/2021 6:43 AM EST documented in this encounter Discharge Instructions * Discharge Instructions* Medina Gomez RN - 08/06/2021 7:38 AM EST SCOPOLAMINE PATCH DISCHARGE INSTRUCTIONS You are wearing a scopolamine patch.This is a medication patch used to prevent and treat nausea andvomiting after surgery. The patch is located behind your left ear. Please follow these instructions while you are wearing the patch. Try not to touch the patch. ??? If you do touch the patch, wash your hands right away. Make sure to remove all traces of medication from your hands. ??? If the medication gets on your hands and then you touch your eyes, your vision may become blurry or your pupils may widen. These are both normal and temporary reactions; they will go away shortly. You may remove the patch as early as: tonight BUT must remove it no later than 0700 am on There will still be some active ingredients on the patch, so fold it in half (with the sticky sidestogether) and throw it in the trash. This will help prevent others from coming into contact with it. After removing the patch, carefully wash your hands and behind your ear (or wherever the patch was placed) with soap and water. ?? If you have not urinated in 6-8 hours after your surgery, remove the patch and call your surgeon. General Anesthesia Discharge Instructions Go home and rest. You may be sleepy for several hours. Take it easy as sudden position changes may cause nausea and/or dizziness. Use caution on stairs. Do not smoke if you are alone. Follow a light to regular diet as tolerated today. If nausea occurs, start with clear liquids, and progress slowly to a regular diet. Do not drive, operate machinery, drink alcoholic beverages or make any legal decisions after havinggeneral anesthesia. The medications given change your reaction time and alter your judgement. IV site -- slight redness is normal, you can use warm compresses. If tenderness and redness increases or foul drainage occurs, please contact your M.D. Patients who have had endotracheal tubes/LMA (tubes used by the anesthesia staff to ensure a safe airway during your operation) may have a sore throat. This is normal and cold liquids or soothing lozenges will help ease this discomfort. Narcotic pain medications can cause constipation, please ask the surgeons office what they recommend for prevention of this. Some non-pharmaceutical means of constipation prevention include increasing intake of fluids, eating more fruits and vegetables as well as fruit juices. If you are uncomfortable and/or unable to urinate within 8 hours of discharge and it is before 5 pm, call your physician. If it is after 5pm go to the closest emergency room or call the hospital dipper operator at [phone] and ask for physician water conservation specialist covering for your physician. Questions or problems after 5pm or on a weekend: Call the [facility] dipper operator at and ask for the physician water conservation specialist covering for your doctor. * Patient Instructions* Clare Ramírez MD - 08/06/2021 9:25 AM EST What to Expect.... The healing process after breast reduction surgery varies with each person. You should expect to feel tired for the first 2 - 3 weeks due to anesthesia and the healing process. Rest often during the day and get a good night sleep. Pain (short term and penitentiary) With any surgery there is some discomfort or pain. We will prescribe pain medication. Take as prescribed and only as needed. OK to take Tylenol, do not exceed 3 grams per day. OK to add Ibuprofen 48 hours after surgery. We recommend taking an ifla-zrh-Wytqdpq stool softener, such as Colace (docusate) or a gentle laxative while taking your narcotic pain reliever. This will help to maintain bowel regularity and prevent straining. Drink plenty of water. You may have nerve pain after your surgery because the nerve endings have been disturbed. Nerve pain may feel like a burning sensation, itching or a shooting, electric shock pain. This is normal and will get better as you heal. Swelling Moderate bruising and swelling is normal in the first few weeks after surgery. The swelling will gradually go down, but it may remain for 3 to 6 months. To help with swelling wear your compression bra. Do not use heat or ice on your surgical site. Drains Record drain output and bring to your first clinic appointment with you. Based on the nursing assessment, your drain will likely be removed at this appointment. The nurses will show you how to care for the drains Showering You may shower tomorrow. Do not take a bath or use a hot tub until incisions are completely healed. If you have drains in place, tie a shoe lace or string around your neck and attach the drains to this to prevent accidental removal. Have someone nearby during your first shower. Incisions/Dressings You may have some red, pink, yellow/clear drainage from your incisions for the first 1-2 weeks. Change gauze as needed. Continue to use dressings until there is no more drainage. DO???S AND DON???TS FOR THE NEXT [address] a motor vehicle for 1-2 weeks or until you can handle the steering wheel without discomfort. Do not drive while taking your narcotic. You will be able to wear a seat belt if you place a small pillow over your chest area. Do not engage in sexual activity for at least 1 week. Do not smoke or be around anyone who smokes for 2 weeks after your surgery. Smoking delays healing and can lead to infection. Do not lift more than 5 pounds or bend at the waist to lift for 6 weeks. Do not participate in strenuous activities such as running or aerobics for 6 weeks. Do resume walking at a gentle pace. Protect your incisions from the sun for 6 months. You may return to work in 1-6 weeks (average time is 3 weeks) depending upon your work activity. GETTING A GOOD NIGHT SLEEP Sleep on your back for a few weeks. Here are some suggestions for a good night sleep. Try sleeping in a recliner. Have extra pillows in your bed for support: two along your side and one under your knees to relievelower back pressure. Buy a large body pillow or a pillow with arm rests for sitting up in bed. GETTING OUT OF BED Limit the use of your arms for a few weeks after surgery. This can be a problem when trying to get out of bed. The following suggestions help you get out of bed with minimal use of your arms. When in bed, pull your knees up towards your chest and tip to the side, gently rolling out of bed. Take care not to roll onto your breasts. Create a nest of pillows to prop you in a semi-upright position helps give you that extra boost to get out of bed. Have someone put gentle pressure to your lower shoulder blades as you sit up. This gives you the extra power you need to get to your feet. Complications: Call your doctor with the following signs of infection: A temperature over 100.4 F or 38 C Redness at the incision line that spreads away from the incision after the first 48 bin thick yellow, foul smelling drainage Increasing pain that is not relieved by your pain medicine One breast becomes much larger and more firm than the other Contact your Doctor To make an appointment or for questions about scheduling, please contact our administrative officesat [phone] For clinical questions, please call our nurses at [phone] Both offices are open Friday thru Friday 8a - 5p. With emergencies after hours, call the hospital dipper operator at [phone] and ask for the Plastic Surgery Resident water conservation specialist. documented in this encounter Medications at Time of Discharge Medication Sig Dispensed Refills Start Date End Date levonorgestrel (KYLEENA IU) by Intrauterine route. traMADoL (Ultram) 50 mg Tablet Take 1 tablet by mouth every 6 hours as needed for Pain. 10 tablet 08/06/2021 XULANE 150-35 mcg/24 hr Patch Weekly 0 08/02/2019 08/07/2021 fludrocortisone (FLORINEF) 0.1 mg Tablet Take 1 tablet by mouth daily. 90 tablet 3 08/06/2019 08/07/2021 triamcinolone (KENALOG) 0.1 % OintmentIndications:D ermatitis Apply topically to hands twice daily for two weeks on and two weeks off. 80 g 11/08/2016 08/07/2021 documented as of this encounter Progress Notes * Mora Hendrix - 08/06/2021 11:06 AM EST Assisted pt with dressing, Patient ambulated to car for discharge accompanied by [facility] staff member. * Mora Hendrix - 08/06/2021 11:00 AM EST Assisted pt with dressing, bulb drains (emptied 5ml L, 5 ml R) attached to compression garment. 2200 ml LR in total visit. * Mora Hendrix - 08/06/2021 10:18 AM EST This note also relates to the following rows which could not be included: Heart Rate - Cannot attach notes to unvalidated device data Heart Rate from SpO2 - Cannot attach notes to unvalidated device data SpO2 - Cannot attach notes to unvalidated device data Discharge instructions thoroughly reviewed with pt and her oniel Bladimir. Teaching handouts provided with some at home supplies needed for bulb drains and compression garment. * Mora Hendrix - 08/06/2021 10:16 AM EST This note also relates to the following rows which could not be included: Heart Rate - Cannot attach notes to unvalidated device data Heart Rate from SpO2 - Cannot attach notes to unvalidated device data BP - Cannot attach notes to unvalidated device data MAP (NBP) - Cannot attach notes to unvalidated device data SpO2 - Cannot attach notes to unvalidated device data Pt tolerating snacks and conrad nusrat so that she can take PO pain meds as ordered for 6/10 surgical pain. documented in this encounter H&P Notes * Clare Ramírez MD - 08/06/2021 7:09 AM EST Plastic Surgery Preoperative H&P: Patient Name: Harika Potter Patient : 1995 Today's Date: 08/06/2021 Harika Potter is a 25 y.o. female with No chief complaint on file. who presents today for Procedure(s): REDUCTION MAMMOPLASTY, TIMOTHY (WRVU 16.03) MODIFIER DIGGS SEE PROTOCOL. No changes since last seen. Exam: General: NAD Resp: Breathing comfortably on room air CV: normal rate A/P: Harika Potter is a 25 y.o. female with No chief complaint on file. who presents for Procedure(s): REDUCTION MAMMOPLASTY, TIMOTHY (WRVU 16.03) MODIFIER DIGGS SEE PROTOCOL Proceed to OR The risks, benefits and indications were reviewed with the patient and there remains an indication for surgery. Consent signed and in chart. Pre-operative antibiotics ordered Please page if any questions Clare Ramírez MD/S Plastic Surgery Resident, Pager: [phone] Plastic Surgery Team Pager: [phone] documented in this encounter Miscellaneous Notes * Brief Op Note - Clare Ramírez MD - 08/06/2021 9:21 AM EST Brief Operative Note Patient Name: Harika Potter : [id number] MR#: [id number] Case Date: 08/06/2021 Surgeon: Surgeon(s) and Role: * Branden Easley MD - Primary * Clare Ramírez MD - Resident Preoperative diagnosis: macromastia Postoperative diagnosis: macromastia Procedure(s) (LRB): REDUCTION MAMMOPLASTY, TIMOTHY (WRVU 16.03) (Bilateral) MODIFIER DIGGS (N/A) SEE PROTOCOL (N/A) Anesthesia: General anesthesia Findings: bilateral macromastia Complications: none Estimated Blood Loss: * No values recorded between 08/06/2021 8:03 AM and 08/06/2021 9:13 AM * * No values recorded between 08/06/2021 8:03 AM and 08/06/2021 9:13 AM * Specimens removed during surgery: Order Name Source Comment Collection Info Order Time SPECIMEN TO PATHOLOGY Right breast weight: 0.2kg macromastia right breast excision Yes 08/06/2021 8:59 AM Time specimen removed from patient: 8:38 AM Number of tissue samples (in container) 1 SPECIMEN TO PATHOLOGY Left breast weight: 0.24kg macromastia left breast excision Yes 08/06/2021 8:59 AM Time specimen removed from patient: 8:39 AM Number of tissue samples (in container) 1 Fluids: Intraprocedure Crystalloid Total Intake lactated ringers infusion 1000.00 mL ceFAZolin (Ancef) 2 g in dextrose 5% 100 mL infusion 100.00 mL Total Intake 1100 mL Output Blood Loss 50 mL Total Output 50 mL Net Net Volume 1050 mL PRBCs: none (See Anesthesia Record/Report for Other Blood Products) Urine Output: (no urine output recorded) Drains: 2 drains Disposition: awakened from anesthesia, extubated and taken to the recovery room in a stable condition, having suffered no apparent untoward event. Condition: doing well without problems (Please see the Surgical Encounter Summary for any Implant and Specimen details pertinent to this patient.) Infection Bundle used? N/A Post Op Plan: 1-3 days: Drain removal in based on nursing assessment 7-10 days: Return for wound check, suture removal, give patient pathology report, shannan bra fitting, review post-op activity restrictions 6 months: residential f/u with surgeon Future Appointments Date Time Provider Department Center 08/07/2021 1:00 PM NURSE, PLASTIC SURGERY [facility] [address] [place] [address] 08/17/2021 9:00 AM Branden Easley MD [facility] [address] [place] [address] 10/11/2021 4:00 PM Dariela Munguia MD [facility] * Op Note - Clare Ramírez MD - 08/06/2021 8:03 AM EST [facility] [place] Patient Name: Harika Potter : [id number] MR#: [id number] Case Date: 08/06/2021 Surgeon: Surgeon(s) and Role: * Branden Easley MD - Primary * Clare Ramírez MD - Resident Preoperative diagnosis: macromastia Postoperative diagnosis: macromastia Procedure(s) (LRB): REDUCTION MAMMOPLASTY, TIMOTHY (WRVU 16.03) (Bilateral) MODIFIER DIGGS (N/A) SEE PROTOCOL (N/A) Findings: bilateral macromastia Anesthesia: General Estimated Blood Loss: * No values recorded between 08/06/2021 8:03 AM and 08/06/2021 9:13 AM * Specimens removed during surgery: Order Name Source Comment Collection Info Order Time SPECIMEN TO PATHOLOGY Right breast weight: 0.2kg macromastia right breast excision Yes 08/06/2021 8:59 AM Time specimen removed from patient: 8:38 AM Number of tissue samples (in container) 1 SPECIMEN TO PATHOLOGY Left breast weight: 0.24kg macromastia left breast excision Yes 08/06/2021 8:59 AM Time specimen removed from patient: 8:39 AM Number of tissue samples (in container) 1 Drains: 2 drains Surgical Closure: Primary Closure - skin incision is completely closed without any wires, armando, drains or other devices Disposition: awakened from anesthesia, extubated and taken to the recovery room in a stable condition, having suffered no apparent untoward event. Condition: doing well without problems (Please see the Surgical Encounter Summary for any Implant and Specimen details pertinent to this patient.) HPI/Surgical Indications: 25yo F with bilateral macromastia presenting for bilateral breast reduction. Procedure Description: The patient was identified and marked in the preoperative holding area. We reviewed the surgical plan, risks, and complications, and she wished to proceed. Patient was marked in a diggs pattern in thepre-operative holding area, planned sternal notch to nipple distance was 21cm; left was larger thenright. Patient opted for skin closure with sasha. The patient was brought to the operating room and positioned supine on the operating table. Anesthetic monitors and SCDs were applied. General anesthesia was induced and a time-out was performed. Thechest was prepped and draped in the usual sterile fashion. Pre-operative antibiotics were administered. The incision plan was a diggs pattern. The nipples were marked with a silver nipple marker. A superior medial pedicle was planned, the area around the nipple was de-epithelized with a knife. The rest of the incisions were marked with bovie cautery. The excision began medially, followed by the inferior incision and then laterally. A total of 0.2kg of tissue was excised from the right and 0.24kg of tissue was excised from the left. Hemostasis was achieved with unipolar electrocautery and hemoclips. The incisions were closed with a deep layer of 3-0 vicryl and insorb stapler. The skin was closed with sasha. Sponge and needle counts were all correct at the end of the case. There were no intraoperative complications. The patient was awakened from anesthesia without any difficulties. Infection Bundle used? N/A Associated attestation - Branden Easley MD - 08/06/2021 2:11 PM EST Attestation: Case Date: 08/06/2021 I was present and I participated during the entire procedure (does not need to include opening and closing). BRANDEN EASLEY MD 08/06/2021 documented in this encounter Plan of Treatment Not on file documented as of this encounter Procedures Procedure Name Priority Date/Time Associated Diagnosis Comments SURGICAL PATHOLOGY REPORT Routine 08/06/2021 8:59 AM EST SPECIMEN TO PATHOLOGY Routine 08/06/2021 8:59 AM EST SPECIMEN TO PATHOLOGY Routine 08/06/2021 8:59 AM EST SEE PROTOCOL 08/06/2021 7:39 AM EST Macromastia MODIFIER DIGGS 08/06/2021 7:39 AM EST Macromastia Breast Reduction (22580) 08/06/2021 7:39 AM EST Macromastia REDUCTION MAMMOPLASTY, BILATERAL Routine 08/06/2021 6:36 AM EST Macromastia POCT HGB Routine 08/06/2021 documented in this encounter Results * Surgical Pathology Report (08/06/2021 8:59 AM EST) Final Diagnosis [id number] ? Location: [facility] The signing pathologist has (i) examined the relevant preparation(s) for the specimen(s) and (ii) rendered or confirmed the diagnosis(es). . ?Surgical Pathology DIAGNOSIS A - Right breast tissue, reduction mammoplasty: ??- Benign breast tissue B - Left breast tissue, reduction mammoplasty: ??- Benign breast tissue Electronically signed by: ?Tara Solis DO Verified: ??08/10/2021 9:48 ?? Pathologist Performed at: ??-[facility] [place], [place] SPECIMEN(S) SUBMITTED A - right breast, excision (1) B - left breast, excision (1) CLINICAL INFORMATION Macromastia SPECIMEN PROCESSING A - Labeled/Fixativ e: Right breast, fresh. Quantity/Size/W eight: Multiple, 9.0 x 6.0 x 4.0 cm, 196 g. Tissue Description: Fibrofatty breast tissue. Skin: Unremarkable. Sectioning: Adipose and dense, robertson-white fibrous tissue. Sections/Proces sing: Alteration Hand sections in 3 cassettes labeled A1-A3. B - Labeled/Fixativ e: Left breast, fresh. Quantity/Size/W eight: Multiple, lymphoid 0 x 9.0 x 5.0 cm, 240 g. Tissue Description: Fibrofatty breast tissue. Skin: Unremarkable. Sectioning: Adipose and dense, robertson-white fibrous tissue. Sections/Proces sing: Alteration Hand sections in 3 cassettes labeled B1-B3. ??lv 08/10/2021 9:48 AM EST [facility] BREAST STRUCTURE / Unknown 08/06/2021 8:59 AM EST 08/06/2021 8:59 AM EST BREAST STRUCTURE / Unknown 08/06/2021 8:59 AM EST 08/06/2021 8:59 AM EST Branden Easley MD PATHOLOGY/CYTOLOGY O RDERABLES [facility] [place] [address] * Specimen to Pathology (08/06/2021 8:59 AM EST) AP Specimen 08/06/2021 8:59 AM EST 08/06/2021 9:00 AM EST Narrative [facility] - 08/06/2021 9:00 AM EST Specimen requisition ordered. ??Separate Pathology report to follow Authorizing Provider Result Nicolette Easley MD PATHOLOGY/CYTOLOGY O RDERABLES Performing Organization Address City/[facility] [place] [address] * Specimen to Pathology (08/06/2021 8:59 AM EST) AP Specimen 08/06/2021 8:59 AM EST 08/06/2021 9:00 AM EST Narrative [facility] - 08/06/2021 9:00 AM EST Specimen requisition ordered. ??Separate Pathology report to follow Authorizing Provider Result Nicolette Easley MD PATHOLOGY/CYTOLOGY O RDRANDEE Performing Organization Address [facility] [place] [address] * POCT HGB (08/06/2021) POC Hemoglobin 13.4 g/dL 08/06/2021 Narrative Authorizing Provider Result Nicolette Easley MD POINT OF CARE TEST O RDERABLES documented in this encounter Visit Diagnoses Diagnosis Macromastia Hypertrophy of breast Macromastia Hypertrophy of breast documented in this encounter Administered Medications Inactive Administered Medications - up to 3 most recent administrations Medication Order MAR Action Action Date Dose Rate Site acetaminophen (Tylenol) 500 mg tablet 1 dose, Starting on Fri08/06/21 at 1009, Until Fri08/06/21 at 1010, Mora Hendrix: argenisinet override Given 08/06/2021 10:10 AM EST 1,000 mg BUpivacaine (pf) (Marcaine) (2.5 mg/mL) 0.25% injection ONCE PRN, Starting on Fri08/06/21 at 0912, Until Fri08/06/21 at 1307, Intra-Operative (Intra-Procedure), Routine Given 08/06/2021 9:12 AM EST 10 mLs 19- Surgical Site ceFAZolin (Ancef) 2 g in dextrose 5% 100 mL infusion 2 g, Intravenous, EVERY 8 HOURS, First dose on Fri08/06/21 at 0730, Until Discontinued, Administer over 30 Minutes, Indication for (Active or Suspected): Prophylaxis Given 08/06/2021 7:47 AM EST 2 g EPINEPHrine (Adrenalin (PF)) injection solution ONCE PRN, Starting on Fri08/06/21 at 0911, Until Fri08/06/21 at 1307, Intra-Operative (Intra-Procedure), Routine Given 08/06/2021 9:11 AM EST 0.1 mg 19- Surgical Site lactated ringers infusion 1,000 mL, at 100 mL/hr, Intravenous, CONTINUOUS, Starting on Fri08/06/21 at 0700, Until Fri08/06/21 at 1106, Day of Surgery (Day of Procedure) New Bag 08/06/2021 8:13 AM EST New Bag 08/06/2021 7:11 AM EST 1,000 mLs 100 mL/hr lidocaine (Xylocaine) 1% (10 mg/mL) injection ONCE PRN, Starting on Fri08/06/21 at 0910, Until Fri08/06/21 at 1307, Intra-Operative (Intra-Procedure), Routine Given 08/06/2021 9:10 AM EST 5 mLs 19- Surgical Site scopolamine (Transderm Scop) 1 mg over 3 days patch 1 patch 1 patch, Transdermal, EVERY 72 HOURS, First dose on Fri08/06/21 at 0745, Until Discontinued, Routine Patch Applied 08/06/2021 7:20 AM EST 1 patch 01- Ear Behind (Left ) scopolamine (Transderm Scop) 1 mg over 3 days patch 1 dose, Starting on Fri08/06/21 at 0719, Until Fri08/06/21 at 0720, MEDINA GOMEZ: cabinet override scopolamine (Transderm-Scop) 1 mg patch Patch Removal Transdermal, EVERY 72 HOURS, First dose on Radha 08/09/21 at 0730, Until Discontinued, Remove scopolamine 1 mg patch scopolamine (Transderm-Scop) 1 mg patch Patch Verification Transdermal, 2 TIMES DAILY, First dose on Fri08/06/21 at 1930, Until Discontinued, Verify scopolamine 1 mg patch. traMADoL (Ultram) tablet 50 mg 50 mg, Oral, ONCE, 1 dose, On Fri08/06/21 at 1030, Day of Surgery (Day of Procedure), Routine Given 08/06/2021 10:14 AM EST 50 mg documented in this encounter Active and Recently Administered Medications Due to Daylight Saving Time, this section may contain times in both EDT and EST. Scheduled Medication Order 08/04/2021 08/05/2021 08/06/2021 ceFAZolin (Ancef) 2 g in dextrose 5% 100 mL infusion 2 g, Intravenous, EVERY 8 HOURS, First dose on Fri08/06/21 at 0730, Until Discontinued, Administer over 30 Minutes, Indication for (Active or Suspected): Prophylaxis 0730 (Due)0747 (Give n - Provider: Melina Mota CRNA) scopolamine (Transderm Scop) 1 mg over 3 days patch 1 patch(Linked Group 1) 1 patch, Transdermal, EVERY 72 HOURS, First dose on Fri08/06/21 at 0745, Until Discontinued, Routine 0720 (Patch Applied - Provider: Medina Gomez RN) scopolamine (Transderm-Scop) 1 mg patch Patch Removal(Linked Group 1) Transdermal, EVERY 72 HOURS, First dose on Radha 08/09/21 at 0730, Until Discontinued, Remove scopolamine 1 mg patch scopolamine (Transderm-Scop) 1 mg patch Patch Verification(Linked Group 1) Transdermal, 2 TIMES DAILY, First dose on Fri08/06/21 at 1930, Until Discontinued, Verify scopolamine 1 mg patch. traMADoL (Ultram) tablet 50 mg (COMPLETED) 50 mg, Oral, ONCE, 1 dose, On Fri08/06/21 at 1030, Day of Surgery (Day of Procedure), Routine 1014 (Given - Provid er: Mora Hendrix) Continuous Medication Order 08/04/2021 08/05/2021 08/06/2021 lactated ringers infusion (CANCELED) 1,000 mL, at 100 mL/hr, Intravenous, CONTINUOUS, Starting on Fri08/06/21 at 0700, Until Fri08/06/21 at 1106, Day of Surgery (Day of Procedure) 0711 (New Bag - Prov ider: Medina Gomez RN)0812 (Paused - Provider: Melina Mota CRNA - Comment: Switch to gravity)0813 (New Bag - Provider: Melina Mota CRNA) PRN Medication Order 08/04/2021 08/05/2021 08/06/2021 BUpivacaine (pf) (Marcaine) (2.5 mg/mL) 0.25% injection (CANCELED) ONCE PRN, Starting on Fri08/06/21 at 0912, Until Fri08/06/21 at 1307, Intra-Operative (Intra-Procedure), Routine 0912 (Given - Provid er: Branden Easley MD) EPINEPHrine (Adrenalin (PF)) injection solution (CANCELED) ONCE PRN, Starting on Fri08/06/21 at 0911, Until Fri08/06/21 at 1307, Intra-Operative (Intra-Procedure), Routine 0911 (Given - Provid er: Branden Easley MD - Comment: Tumescent solution: 50ml 1% lidocaine and 1ml epinephrine added to 1L of normal saline. 100ml administered.) lidocaine (Xylocaine) 1% (10 mg/mL) injection (CANCELED) ONCE PRN, Starting on Fri08/06/21 at 0910, Until Fri08/06/21 at 1307, Intra-Operative (Intra-Procedure), Routine 0910 (Given - Provid er: Branden Easley MD - Comment: Tumescent solution: 50ml 1% lidocaine and 1ml epinephrine added to 1L of normal saline. 100ml administered.) No Frequency Medication Order 08/04/2021 08/05/2021 08/06/2021 acetaminophen (Tylenol) 500 mg tablet (COMPLETED) 1 dose, Starting on Fri08/06/21 at 1009, Until Fri08/06/21 at 1010, Mora Hendrix: cabinet override 1010 (Given - Provid er: Mora Hendrix) Linked Groups Order Group 1: scopolamine (Transderm Scop) 1 mg over 3 days patch 1 patchJump to med 1 patch, Transdermal, EVERY 72 HOURS, First dose on Fri08/06/21 at 0745, Until Discontinued, Routine And scopolamine (Transderm-Scop) 1 mg patch Patch VerificationJump to med Transdermal, 2 TIMES DAILY, First dose on Fri08/06/21 at 1930, Until Discontinued, Verify scopolamine 1 mg patch. And scopolamine (Transderm-Scop) 1 mg patch Patch RemovalJump to med Transdermal, EVERY 72 HOURS, First dose on Radha 08/09/21 at 0730, Until Discontinued, Remove scopolamine 1 mg patch documented in this encounter Care Teams Student Admissions Clerk Relationship Specialty Start Date End Date Teri Gomez, RUSTAM [address] [place] [address] PCP - General Internal Medicine 08/07/17 documented as of this encounter
--- OUTSIDE RECORDS SUMMARY | 2024-10-18 22:43 | XMS_ITS | Encounter Summary ---
[facility] [place] [address] Care Team Providers Care Machine Tool Operator Name Role Phone Patricia, Teri Brasher APRN Primary Care Provider [phone] Reason for Visit * Auth/Cert Specialty Diagnoses / Procedures Referred By Jorden chong Referred To Contact Diagnoses macromastia Procedures PRO REDUCTION OF LARGE BREAST REDUCTION MAMMOPLASTY, TIMOTHY (WRVU 16.03) MODIFIER DIGGS SEE PROTOCOL Referral ID Status Reason Start Date Expiration Date Visits Re quested Visits Authorized [id number] 1 1 Encounter Details Date Type Department Care Team (Latest Contact Info) Description 08/06/2021 6:24 AM EST - 08/06/2021 11:00 AM EST Hospital Encounter [place] [address] Branden Easley MD Macromastia Discharge Disposition: Home Social History Tobacco Use [...] closest emergency room or call the hospital longshore equipment operator at [phone] and ask for physician cement mason helper covering for your physician. Questions or problems after 5pm or on a weekend: Call [facility] longshore equipment operator at and ask for the physician cement mason helper covering for your doctor. * Patient Instructions* [...] good night sleep. Pain (short term and senior living) With any surgery there is some discomfort or pain. We will prescribe pain medication. Take as prescribed and only as needed. OK to take Tylenol, do not exceed 3 grams per day. OK to add Ibuprofen 48 hours after surgery. We recommend taking an hrfo-tzi-Mouupku stool softener, such as Colace (docusate) or [...] about scheduling, please contact our administrative officesat [phone] For clinical questions, please call our nurses at [phone] Both offices are open Friday thru Friday 8a - 5p. With emergencies after hours, call the hospital longshore equipment operator at [phone] and ask for the Plastic Surgery Resident cement mason helper. documented in this encounter Medications at Time [...] thoroughly reviewed with pt and her oniel Garrison. Teaching handouts provided with some at home [...] take PO pain meds as ordered for 610 surgical pain. documented in this encounter H&P [...] Clare Ramírez MD/S Plastic Surgery Resident, Pager: [phone] Plastic Surgery Team Pager: [phone] documented in this encounter Miscellaneous Notes * Brief Op Note - Clare Ramírez MD - 08/06/2021 9:21 AM EST Brief Operative Note Patient Name: Harika Potter : [id number] MR#: [id number] Case Date: 08/06/2021 Surgeon: Surgeon(s) and Role: [...] fitting, review post-op activity restrictions 6 months: renovator machine operator f/u with surgeon Future Appointments Date Time Provider Department Center 08/07/2021 1:00 PM NURSE, PLASTIC SURGERY [facility] [address] [place] [address] 08/17/2021 9:00 AM Branden Easley MD [facility] [address] [place] [address] 10/11/2021 4:00 PM Dariela Munguia MD [facility] * Op Note - Clare Ramírez MD - 08/06/2021 8:03 AM EST [facility] Operative Note Patient Name: Harika Potter : [id number] MR#: [id number] Case Date: 08/06/2021 Surgeon: Surgeon(s) and Role: [...] 08/06/2021 7:39 AM EST Macromastia Breast Reduction (24952) 08/06/2021 7:39 AM EST Macromastia REDUCTION MAMMOPLASTY, BILATERAL Routine 08/06/2021 6:36 AM EST Macromastia POCT HGB Routine 08/06/2021 documented in this encounter Results * Surgical Pathology Report (08/06/2021 8:59 AM EST) Final Diagnosis [id number] ? Location: [facility] The signing pathologist has (i) examined the relevant preparation(s) for the specimen(s) and (ii) rendered or confirmed the diagnosis(es). . ?Surgical Pathology DIAGNOSIS A - Right breast tissue, reduction mammoplasty: ??- Benign breast tissue B - Left breast tissue, reduction mammoplasty: ??- Benign breast tissue Electronically signed by: ?Tara Solis DO Verified: ??08/10/2021 9:48 ?? Pathologist Performed at: ??-[facility] Dept. of Pathology, [place], [place] SPECIMEN(S) SUBMITTED A - right breast, excision (1) B - left breast, excision (1) CLINICAL INFORMATION Macromastia SPECIMEN PROCESSING A - Labeled/Fixativ e: Right breast, fresh. Quantity/Size/W eight: Multiple, 9.0 x 6.0 x 4.0 cm, 196 g. Tissue Description: Fibrofatty breast tissue. Skin: Unremarkable. Sectioning: Adipose and dense, robertson-white fibrous tissue. Sections/Proces sing: Inspector Set Up And Lay Out sections in 3 cassettes labeled A1-A3. B - Labeled/Fixativ e: Left breast, fresh. Quantity/Size/W eight: Multiple, lymphoid 0 x 9.0 x 5.0 cm, 240 g. Tissue Description: Fibrofatty breast tissue. Skin: Unremarkable. Sectioning: Adipose and dense, robertson-white fibrous tissue. Sections/Proces sing: Inspector Set Up And Lay Out sections in 3 cassettes labeled B1-B3. ??lv 08/10/2021 9:48 AM EST [facility] BREAST STRUCTURE / Unknown 08/06/2021 8:59 AM EST 08/06/2021 8:59 AM EST BREAST STRUCTURE / Unknown 08/06/2021 8:59 AM EST 08/06/2021 8:59 AM EST Branden Easley MD PATHOLOGY/CYTOLOGY O RDERABLES [facility] [place] [address] * Specimen to Pathology (08/06/2021 8:59 AM EST) AP Specimen 08/06/2021 8:59 AM EST 08/06/2021 9:00 AM EST Narrative [facility] - 08/06/2021 9:00 AM EST Specimen requisition ordered. ??Separate Pathology report to follow Authorizing Provider Result Nicolette Easley MD PATHOLOGY/CYTOLOGY O RDERABLES Performing Organization Address [facility] [place] [place] [address] * Specimen to Pathology (08/06/2021 8:59 AM EST) AP Specimen 08/06/2021 8:59 AM EST 08/06/2021 9:00 AM EST Narrative [facility] - 08/06/2021 9:00 AM EST Specimen requisition ordered. ??Separate Pathology report to follow Authorizing Provider Result Nicolette Easley MD PATHOLOGY/CYTOLOGY O RDERABLES Performing Organization Address [facility] [place] [place] [address] * POCT HGB (08/06/2021) POC Hemoglobin 13.4 [...] Fri08/06/21 at 1010, Mora Hendrix: cabinet override Given 08/06/2021 10:10 AM EST 1,000 mg ceFAZolin (Ancef) 2 g in dextrose 5% 100 mL infusion 2 g, Intravenous, EVERY 8 HOURS, First dose on Fri08/06/21 at 0730, Until Discontinued, Administer over 30 Minutes, Indication for (Active or Suspected): Prophylaxis Given 08/06/2021 7:47 AM EST 2 g lactated ringers infusion 1,000 mL, at 100 mL/hr, Intravenous, CONTINUOUS, Starting on Fri08/06/21 at 0700, Until Fri08/06/21 at 1106, Day of Surgery (Day of Procedure) New Bag 08/06/2021 8:13 AM EST New Bag 08/06/2021 7:11 AM EST 1,000 mLs 100 mL/hr scopolamine (Transderm Scop) 1 mg over 3 days patch 1 patch 1 patch, Transdermal, EVERY 72 HOURS, First dose on Fri08/06/21 at 0745, Until Discontinued, Routine Patch Applied 08/06/2021 7:20 AM EST 1 patch 01- Ear Behind (Left) scopolamine (Transderm Scop) 1 mg over 3 [...] Minutes, Indication for (Active or Suspected): Prophylaxis 07 (Due)0747 (Give n - Provider: Melina Mota [...] patch documented in this encounter Care Teams Machine Tool Operator Relationship Specialty Start Date End Date Teri Gomez APRN [address] [place] [address] PCP - General Internal Medicine 08/07/17 documented as of this encounter
--- OUTSIDE RECORDS SUMMARY | 2024-10-18 22:43 | XMS_ITS | Encounter Summary ---
Author [facility] [address] Care Team Providers Care Hospital Pharmacist Name Role Phone Teri Gomez APRN Primary Care Provider [phone] Encounter Details Date Type Department Care Team (Late st Contact Info) Description 03/19/2021 Telephone [place] [phone] Corrina Yanez Social History Tobacco Use Types Packs/Day Years [...] on filedocumented in this encounter Care Teams Hospital Pharmacist Relationship Specialty Start Date End Date Teri Gomez APRN [address] [place] [address] PCP - General Internal Medicine 08/07/17 documented as of this encounter
--- OUTSIDE RECORDS SUMMARY | 2024-10-18 22:43 | XMS_ITS | Encounter Summary ---
Author Organization [facility] [place] [address] Care Team Providers Care Aquatic Ecologist Name Role Phone Teri Gomez APRN Primary Care Provider [phone] Encounter Details Date Type Department Care Team (Late st Contact Info) Description 03/19/2021 Telephone [place] [phone] Corrina Yanez Social History Tobacco Use Types [...] on filedocumented in this encounter Care Teams Aquatic Ecologist Relationship Specialty Start Date End Date Teri Gomez APRN [address] [place] [address] PCP - General Internal Medicine 08/07/17 documented as of this encounter
--- OUTSIDE RECORDS SUMMARY | 2024-10-18 22:43 | XMS_ITS | Encounter Summary ---
Author Organization [facility] Address [address] [place] [address] Care Team Providers Care Tooth Cutter Contact Wheel Name Role Phone Unknown, Provider Primary Care Provider Unava ilable Encounter Details Date Type Department Care Team (Late st Contact Info) Description 08/07/2021 Lab Requisition [facility] Pathology & Laboratory Medicine - [address] [address] Outr Resulting Lab, Provider Social History Tobacco [...] Procedure Name Priority Date/Time Associated Diagnosis Comments ZZCOVID-19 TEST [facility] PCR Today 08/07/2021 8:30 EST COVID-19 TESTING Routine 08/07/2021 8:30 EST documented in this encounter Results * COVID-19 TEST [facility] PCR (08/07/2021 8:30 EST) Swab 08/07/2021 8:30 EST 08/07/2021 21:38 EST us Provider Outr Resulting Lab MICROBIOLOGY - GENER AL ORDERABLES Final Result [facility] [address] [place] [address] * COVID-19 TESTING (08/07/2021 8:30 EST) COVID-19 rt-PCR Result Negative Negative 08/08/2021 1:43 EST [facility] Comment: This test has not been FDA cleared or approved. This test has been authorized by FDA under an EUA for use by authorized laboratories. This test has been authorized only for detection of nucleic acid from 2019-nCoV, not for any other viruses or pathogens. This test is only authorized for the duration of the declaration that circumstances exist justifying the authorization of emergency use of in vitro diagnostic tests for detection and/or diagnosis of 2019-nCoV under section 564(b)(1) of Act, 21 U.S.C ?? 360bbb-3(b) (1), unless the authorization is terminated or revoked sooner. Negative results do not preclude 2019-nCoV infection and should not be used as the sole basis for treatment or other patient management decisions. Negative results must be combined with clinical observations, patient history, and epidemiological information. Performed on the hint Fusion instrument Performing Lab [facility] 08/08/2021 1:43 EST [facility] Swab 08/07/2021 8:30 EST 08/07/2021 21:38 EST us Provider Outr Resulting Lab MICROBIOLOGY - GENER AL ORDERABLES Final Result [facility] [address] [place] [address] documented in this encounter Visit Diagnoses Not on filedocumented in this encounter Care Teams Tooth Cutter Contact Wheel Relationship Specialty Start Date End Date Unknown, Provider, PCP - General 09/29/19 documented as of this encounter
--- OUTSIDE RECORDS SUMMARY | 2024-10-18 22:43 | XMS_ITS | Encounter Summary ---
Author Organization [facility] [place] [address] Care Team Providers Care Concrete Plant Laborer Name Role Phone Elizabeth Gomezadam Brasher APRN Primary Care Provider [phone] Reason for Visit * Auth/Cert Specialty Diagnoses / Procedures Referred By Jorden chong Referred To Contact Diagnoses macromastia Procedures PRO REDUCTION OF LARGE BREAST REDUCTION MAMMOPLASTY, TIMOTHY (WRVU 16.03) MODIFIER DIGGS SEE PROTOCOL Referral ID Status Reason Start Date Expiration Date Visits Re quested Visits Authorized [id number] 1 1 Encounter Details Date Type Department Care Team (Late st Contact Info) Description 08/06/2021 7:38 AM EST Anesthesia Event [place] [phone] Francisco Strong MD [facility] DR [place] [address] Marcus Corcoran DO [facility] [place] [address] Anesthesia Record Procedure Summary Procedure Name Responsible Anesthesiologist Anesthesia Start Time Anesthesia Stop Time REDUCTION MAMMOPLASTY, TIMOTHY (WRVU 16.03) (Bilateral: Breast) Francisco Strong MD 08/06/21 0738 08/06/21 0930 Events Date Time Event Comment 08/06/2021 0719 0738 Start 0740 AN Verify 0740 An Start Data 0744 An Induction 0746 An Intubation 0747 Anesthesia Ready 0917 an stop data 0929 Recovery or ICU Handoff Larissa ent care was transferred to the destination unit staff after review of the patient's medical history, current anesthetic/surgical status and plan, according to the Provider Handoff Checklist. 0930 Stop Meds Name Total ceFAZolin (Ancef) 2 g in dextrose 5% 100 mL infusion 2 g Midazolam 2 mg fentaNYL 200 mcg IV Lidocaine 80 mg Propofol 200 mg Propofol INF 694.19 mg Dexmedetomidine 8 mcg Dexamethasone 8 mg Ondansetron 8 mg PHENYLephrine 240 mcg lactated ringers infusion 1,000 mL * Agents Name O2 Air N2O Sevoflurane (et) * Blood No blood administrations on file. Lines, Drains, and Airways Type Details Placement Removal Incision 08/06/21; 0807; Left ; breast 08/06/21 0807 by Landy Gorman RN Incision 08/06/21; 0808; Righ t; breast 08/06/21 0808 by Landy Gorman RN Drain/Device Site 08/06/21; 0853; Righ t; breast; collapsible closed device (15Fr); Dr. Acosta; Other (drain sponge) 08/06/21 0853 by Landy Gorman RN Drain/Device Site 08/06/21; 0854; Left ; breast; collapsible closed device (15Fr); Dr. Acosta; Other (drain sponge) 08/06/21 0854 by Landy Gorman RN (RETIRED) Peripheral IV Line - Single Lumen 08/06/21; 0710; median cubital vein (antecubital fossa), right; [id number] catheter system; 20 gauge, 3/4 in length; sys; intradermal injection; 08/06/21; 1059 08/06/21 0710 by Medina Gomez RN 08/06/21 1059 by Mora Hendrix Supraglottic Mask Ventilation: No t Attempted (0); LMA Size: 3; Inserted by: Svetlana LAUREN; Removal Date: 08/06/21; Removal Time: 10508/06/21 0746 by Melina Mota CRNA 08/06/21 105 by Mora Hendrix documented in this encounter Social History Tobacco Use Types Packs/Day Years [...] PM EDT documented as of this encounter OR Notes * Anesthesia Postprocedure Evaluation - Francisco Strong MD - 08/06/2021 10:09 AM EST Department of Anesthesiology Post-procedure Note Patient: Harika Potter Procedure Summary Date: 08/06/21 Room / Location: [facility] OR [address] [place] [address] OSC Anesthesia Start: 737 Anesthesia Stop: 929 Procedures: REDUCTION MAMMOPLASTY, TIMOTHY (WRVU 16.03) (Bilateral Breast) MODIFIER DIGGS (N/A ) SEE PROTOCOL (N/A ) Diagnosis: Macromastia (macromastia) Surgeons: Branden Acosta MD Responsible Provider: Francisco Strong MD Anesthesia Type: general ASA Status: 2 All Anesthesia Providers: Anesthesiologist: Francisco Strong MD EYEDOTTER: Melina Mota CRNA Vitals Value Taken Time BP 111/70 08/06/21 1000 Temp 36.2 ??C (97.2 ??F) 08/06/21 0923 Pulse 89 08/06/21 1008 Resp SpO2 100 % 08/06/21 1008 Pain Level Vitals shown include unvalidated device data. Patient Location: PACU/[facility] Level of Consciousness: Conscious but Sleepy Pain Management: Pain Being Addressed PONV: None Cardiovascular Status: At Baseline and Hemodynamically Stable Respiratory Status: At Baseline and Room Air Postoperative Fluid Status: Intravascular EUvolemia Possible Anesthetic Complications: NONE apparent at time of evaluation Final Primary Anesthesia Type: General (The anesthetic type performed was the same as planned.) Comments: Francisco Strong MD * Anesthesia Preprocedure Evaluation - Francisco Strong MD - 08/06/2021 7:17 AM EST Pre-Anesthesia Evaluation for: Harika Potter a 25 y.o. female. Procedure(s): REDUCTION MAMMOPLASTY, TIMOTHY (WRVU 16.03) MODIFIER DIGGS SEE PROTOCOL Patient Active Problem List Diagnosis ??? Tachycardia ??? Palpitations ??? Asthma ??? Anxiety ??? Irritable bowel syndrome ??? Chronic nausea ??? Contact dermatitis ??? Acne No past medical history on file. Past Surgical History: Procedure Laterality Date ??? SECTION 2016 Social History Tobacco Use ??? Smoking status: Former Smoker Packs/day: 1.00 Years: 3.00 Pack years: 3.00 Types: Cigarettes Start date: 2013 Quit date: 2017 Years since quittin.8 ??? Smokeless tobacco: Never Used Substance Use Topics ??? Alcohol use: Yes Social History Substance and Sexual Activity Drug Use Not on file No Known Allergies Medications: MAR and/or home medications have been reviewed. Physical Exam: Preprocedure Vitals Current as of 08/06/21 0717 BP: 111/84 Pulse: 104 Resp: 16 SpO2: 99 Temp: 37.1 ??C (98.8 ??F) Height: 165.1 cm (5' 5) (08/06/21) Weight: 65.8 kg (145 lb) (08/06/21) BMI: 24.13 IBW: 57 kg (125 lb 10.6 oz) Last edited 08/06/21 0645 by TT Airway Assessment: Mallampati: II TM distance: >3 FB Neck ROM: full Cardiovascular Assessment: Rhythm: regular Rate: abnormal PE comment: Chronic tachycardia Pulmonary Assessment: unlabored breathing Dental Assessment: - normal exam Misc Assessment: IV access: Peripheral line Last Filed Perioperative Cognitive Screening None Anesthesia Plan: ASA 2 general, with a(n) intravenous induction Harika Potter is a 25 y.o. female who presents for b/l breast reduction PMH: chronic tachycardia (asymptomatic except for rare episodes of SVT); IBS, Anxiety Anesth Hx: PONV with all anesthetics METS > 4, no limitations Pt is appropriately NPO Labs: No results for input(s): WBC, HGB, HCT, PLATELET in the last 7068 hours. No results for input(s): NA, K, CL, CO2, BUN, CREATININE in the last 7068 hours. No results for input(s): AST, ALT, ALKPHOS, BILITOT, BILIDIR in the last 7068 hours. No results for input(s): PT, INR, PTT in the last 168 hours. No results found for: ABORH Anesthetic Plan GA with LMA PONV prophylaxis Standard ASA monitors, IV access Region - Other Informed Consent: Anesthetic plan and risks discussed with patient. Plan discussed with EYEDOTTER. Anesthesia Screening documented in this encounter Plan of Treatment Not on file documented as of this encounter Visit Diagnoses Not on filedocumented in this encounter Administered Medications Inactive Administered Medications - up to 3 most recent administrations Medication Order MAR Action Action Date Dose Rate Site ceFAZolin (Ancef) 2 g in dextrose 5% 100 mL infusion 2 g, Intravenous, EVERY 8 HOURS, First dose on Fri08/06/21 at 0730, Until Discontinued, Administer over 30 Minutes, Indication for (Active or Suspected): Prophylaxis Given 08/06/2021 7:47 AM EST 2 g dexamethasone (Decadron) injection Intravenous, PRN, Starting on Fri08/06/21 at 0754, Until Fri08/06/21 at 0930, Anesthesia Intra-op, Routine Given 08/06/2021 7:54 AM EST 8 mg dexmedetomidine (Precedex) (4 mcg/mL) bolus injection (Anesthsia) Intravenous, PRN, Starting on Fri08/06/21 at 0743, Until Fri08/06/21 at 0930, Anesthesia Intra-op, Routine Given 08/06/2021 7:43 AM EST 8 mcg fentaNYL (pf) (50 mcg/mL) multi-dose injection Intravenous, PRN, Starting on Fri08/06/21 at 0743, Until Fri08/06/21 at 0930, Anesthesia Intra-op, Routine Given 08/06/2021 8:57 AM EST 25 mcg Given 08/06/2021 8:30 AM EST 25 mcg Given 08/06/2021 8:20 AM EST 25 mcg lactated ringers infusion 1,000 mL, at 100 mL/hr, Intravenous, CONTINUOUS, Starting on Fri08/06/21 at 0700, Until Fri08/06/21 at 1106, Day of Surgery (Day of Procedure) New Bag 08/06/2021 8:13 AM EST New Bag 08/06/2021 7:11 AM EST 1,000 mLs 100 mL/hr lidocaine (pf) (Xylocaine) (20 mg/mL) 2% injection syringe Intravenous, PRN, Starting on Fri08/06/21 at 0744, Until Fri08/06/21 at 0930, Anesthesia Intra-op, Routine Given 08/06/2021 7:44 AM EST 80 mg midazolam (pf) (Versed) (1 mg/mL) multi-dose injection Intravenous, PRN, Starting on Fri08/06/21 at 0738, Until Fri08/06/21 at 0930, Anesthesia Intra-op, Routine Given 08/06/2021 7:38 AM EST 2 mg ondansetron (pf) (Zofran) (2 mg/mL) injection Intravenous, PRN, Starting on Fri08/06/21 at 0909, Until Fri08/06/21 at 0930, Anesthesia Intra-op, Routine Given 08/06/2021 9:09 AM EST 8 mg PHENYLephrine in NS (PF) (PRADEEP-SYNEPHRINE) 0.8 mg/10 mL (80 mcg/mL) multi-dose injection Syrg Intravenous, PRN, Starting on Fri08/06/21 at 0833, Until Fri08/06/21 at 0930, Anesthesia Intra-op, Routine Given 08/06/2021 8:50 AM EST 80 mcg Given 08/06/2021 8:44 AM EST 80 mcg Given 08/06/2021 8:33 AM EST 80 mcg propofoL (Diprivan) 10 mg/mL bolus injection (Anesthesia) Intravenous, PRN, Starting on Fri08/06/21 at 0745, Until Fri08/06/21 at 0930, Anesthesia Intra-op Given 08/06/2021 7:45 AM EST 200 mg propofoL (Diprivan) infusion Intravenous, CONTINUOUS PRN, Starting on Fri08/06/21 at 0749, Until Fri08/06/21 at 0930, Anesthesia Intra-op, Routine Rate/Dose Change 08/06/2021 8:50 AM EST 100 mcg/kg/min 39.48 mL/hr Rate/Dose Change 08/06/2021 8:05 AM EST 150 mcg/kg/min 59. 22 mL/hr Rate/Dose Change 08/06/2021 7:55 AM EST 100 mcg/kg/min 39. 48 mL/hr documented in this encounter Care Teams Concrete Plant Laborer Relationship Specialty Start Date End Date Teri Gomez, WELLNESS TRAINER [address] [place] [address] PCP - General Internal Medicine 08/07/17 documented as of this encounter
--- OUTSIDE RECORDS SUMMARY | 2024-10-18 22:43 | XMS_ITS | Encounter Summary ---
Author Organization [facility] [place] [address] Care Team Providers Care Vacuum Furnace Operator Name Role Phone Teri Gomez APRN Primary Care Provider [phone] Encounter Details Date Type Department Care Team (Late st Contact Info) Description 03/19/2021 [place]phone [place] [phone] Corrina Yanez Social History Tobacco Use Types [...] on filedocumented in this encounter Care Teams Vacuum Furnace Operator Relationship Specialty Start Date End Date Teri Gomez APRN [address] [place] [address] PCP - General Internal Medicine 08/07/17 documented as of this encounter
--- OUTSIDE RECORDS SUMMARY | 2024-10-18 22:43 | XMS_ITS | Encounter Summary ---
Author Organization [facility] [place] [address] Care Team Providers Care Youth Program Director Name Role Phone Teri Gomez APRN Primary Care Provider Reason for Referral * Diagnostic Test (Routine) - Closed Specialty Diagnoses / Procedures Referred By Contac t Referred To Contact Cardiology Diagnoses Tachycardia Palpitations Procedures Eddie Lopez MD [facility] [place] [address] [facility] [address] [place] [phone] Referral ID Status Reason Start Date Expiration Date V isits Requested Visits Authorized [id number] Closed Specialty Service Requested 06/03/2019 06/14/2019 1 1 Reason for Visit * Reason Comments Tachycardia Palpitations Ekg * Consultation (Routine) - Closed Specialty Diagnoses / Procedures Referred By Contac t Referred To Contact Cardiology Diagnoses Tachycardia, unspecified TACHYCARDIA, PALPITATIONS Teri Gomez APRN [address] [place] [phone] [facility] [address] [place] [phone] Referral ID Status Reason Start Date Expiration Date V isits Requested Visits Authorized [id number] Closed Consult, Test & Treat Connection Center 04/26/2019 04/25/2020 1 1 Encounter Details Date Type Department Care Team (Late st Contact Info) Description 06/03/2019 11:00 AM EDT Office Visit Cardiology at [address] [phone] Tu Levy MD [facility] [address] Eddie Velasquez MD [facility] [place] [address] Tachycardia (Primary Dx); Palpitations Social History Tobacco Use Types Packs/Day Years [...] Sign Reading Time Taken Comments Blood Pressure 117/75 06/03/2019 11:00 AM EDT Pulse 73 06/03/2019 11:00 AM EDT Temperature - - Respiratory Rate - - Oxygen Saturation 100% 06/03/2019 11:00 AM EDT Inhaled Oxygen Concentration - - Weight 60.1 kg (132 lb 8 oz) 06/03/2019 11:00 AM EDT Height 165.1 cm (5' 5) 06/03/2019 11:00 AM EDT Body Mass Index 22.05 06/03/2019 11:00 AM EDT documented in this encounter Progress Notes * Eddie Velasquez V - 06/03/2019 11:00 AM EDT Images from the original note were not included. Cardiology Clinic Note (New Patient) June 03, 2019 Name: Harika Potter Gender: female : 1995 Age: 23 y.o. Date of Service: June 03, 2019 Attending Physician Tu Levy MD Reason for Referral/Follow up: Chief Complaint Patient presents with ??? Tachycardia ??? Palpitations ??? Ekg Patient Active Problem List Diagnosis ??? Tachycardia ??? Palpitations ??? Asthma ??? Anxiety ??? Irritable bowel syndrome ??? Chronic nausea ??? Contact dermatitis ??? Acne History of Presenting Illness: Harika Potter is a 23 y.o. old female with no significant past medical history who came to cardiology clinic for evaluation of palpitations that have been bothering her over 1 years duration. Patient initially had palpitations few months after she gave to a boy in 2016. In November 2017 she was seen by cardiology at [facility] and she was evaluated with an echocardiogram and a Holter monitor. The echo was normal and Holter did not reveal any arrhythmias. Later on in February of that year she had a ZIO patch monitoring done for 10 days duration. That did not reveal any arrhythmias. Later on, in January 2019 she apparently had flu or flulike symptoms and at that time she was tachycardic with heart rate in the 160s. 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 She was given 5 mg of IV metoprolol and she was discharged home with 25 mg of metoprolol succinate. Has patient did not like that idea she she did not really take it regularly and even otherwise during thetime she took it, she did not feel like it helped had a bit. She also has had intense fatigue with it. The combination of all the above said symptoms she [facility] With regards to the palpitations, in 2018 she had these episodes which were on and off and were associated with diaphoresis, dyspnea and chest pain. All the symptoms resolved spontaneously within 5 minutes duration. Over the last 6 months however, she has had increased frequency of the episodes andit has been anywhere between 5 to 6 days a week and at least once a day during that time. Patient did not have any syncopal events over the last few years but when she was in high school there were at least 2 episodes where she had syncope without any prodromal symptoms. She is otherwise active andswims regularly. 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 There is no family history of sudden cardiac and her 2 sisters and both parents are healthy. Review of Systems: All 14 systems reviewed and are negative except as noted above. Allergies:Patient has no known allergies. Home Medications: Current Outpatient Medications: ??? triamcinolone (KENALOG) 0.1 % Ointment, Apply topically to hands twice daily for two weeks on and two weeks off. (Patient not taking: Reported on 08/05/2017), Disp: 80 g, Rfl: 0 History reviewed. No pertinent past medical history. See active problem list. Otherwise no specificmedical history. Past Surgical History: Procedure Laterality Date ??? SECTION 2017 Family History Problem Relation Age of Onset ??? No Known Problems Mother ??? No Known Problems Father ??? No Known Problems Sister No syncope or sudden cardiac in any nearest family members. Social History Socioeconomic History ??? Marital status: Not on file Spouse name: Not on file ??? Number of children: 1 ??? Years of education: Not on file ??? Highest education level: Not on file Occupational History ??? 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 Financial resource strain: Not on file ??? Food insecurity: Worry: Not on file Inability: Not on file ??? Transportation needs: Medical: Not on file Non-medical: Not on file Tobacco Use ??? Smoking status: Former Smoker Packs/day: 1.00 Years: 3.00 Pack years: 3.00 Types: Cigarettes Start date: 2013 Last attempt to quit: 2017 Years since quittin.6 ??? Smokeless tobacco: Never Used Substance and Sexual Activity ??? Alcohol use: Yes Frequency: 2-4 times a month Drinks per session: 1 or 2 Binge frequency: Never ??? Drug use: Not on file ??? Sexual activity: Not on file Lifestyle ??? Physical activity: Days per week: Not on file Minutes per session: Not on file ??? Stress: Not on file Relationships ??? Social connections: Talks on phone: Not on file Gets together: Not on file Attends muslim service: Not on file Active member of club or organization: Not on file Attends meetings of clubs or organizations: Not on file Relationship status: Not on file ??? Intimate partner violence: Fear of current or ex partner: Not on file Emotionally abused: Not on file Physically abused: Not on file Forced sexual activity: Not on file Other Topics Concern ??? Not on file Social History Narrative ??? Not on file Physical Exam: Most Recent Vitals: 06/03/19 1100 BP: 117/75 Pulse: 73 SpO2: 100% Gen/Constitutional: Young woman, stated age, alert, appears comfortable. HEENT: LILIYA, EOMI, No conjunctival pallor or scleral icterus Cardiac/CVS: RRR S1 S2 No murmurs Pulm/Chest: Clear, No creps or ronchi. Abd/GI: No tenderness, not distended, soft, BS present, no organomegaly Musculoskeletal: No edema, Pulses palpable, no calf tenderness Neuro/CORROSION CONTROL FITTER: AAO x 3, No evident deficits Skin/Integumentary: Extensive tattoos on both arms. Labs: Recent Results (from the past 72 hour(s)) EKG 12 Lead Result Value Ref Range Ventricular rate 86 BPM Atrial Rate 86 BPM P-R Interval 118 ms QRS Duration 76 ms Q-T Interval 338 ms QTC Calculated (Bezet) 404 ms Calculated P [place] 67 degrees Calculated R [place] 71 degrees Calculated T [place] 82 degrees INTERPRETATION Normal sinus rhythm with sinus arrhythmia Nonspecfic ST segment changes Abnormal ECG No previous ECGs available Echo dated november 2017: Holter from November 2017: Ziopatch from February 2018: Impression and Recommendations: Ms Harika Potter is a pleasant 23 year old woman with no significant past medical history who comes in for evaluation of palpitations associated with diaphoresis and dyspnea that resolves spontaneously in 5 minutes duration. She has been investigated with Echo/holter/Ziopatch and all were negative. It is unlikely that she has cardiac etiology for her palpitations and this could be a variant of panic attacks. However, in the setting of increasing recurrence of events over the last few months, we will repeat a ZIO patch monitoring again. 1. Palpitations: - Structurally normal heart and negative out patient cardiac monitoring for close to 10 days. - Due to increased recurrence and frequency of the palpitations, will repeat outpatient cardiac telemetry monitoring for 2 more weeks. - Reassurance provided. - Suggest evaluation and treatment for panic attacks if the repeat ZIO Patch monitoring is unrevealing again. -Finally,if ZIO Patch monitoring is negative and panic attack treatment did not help, as a last resort, will consider EP referral for potential EP study vs loop recorder placement. Patient was seen and evaluated along with Dr Levy. Follow up with cardiology as needed. Eddie Velasquez MD June 03, 2019 11:37 AM * Tu Levy MD - 06/03/2019 11:00 AM EDT I have seen the patient and reviewed the above history and I agree with the details as written by Dr. Velasquez (physically impaired teacher). The assessment and plan were formulated in discussion with me and I agree with them as documented. documented in this encounter Plan of Treatment Not on file documented as of this encounter Procedures Procedure Name Priority Date/Time Associated Diagnosis Comments EKG 12-LEAD Routine 06/03/2019 10:58 AM EDT Tachycardia documented in this encounter Results * Ziopatch (06/03/2019 12:16 PM EDT) Anatomical Region Laterality Modality Other Narrative 06/14/2019 9:23 AM EDT [facility] ? Zio Patch? Ambulatory Cardiac Event Monitor Report Indication: tachycardia Duration of recording ? 5 days, 11 hours Summary Data Predominant rhythm ? sinus rhythm Minimum sinus rate 49 bpm Maximum sinus rate 177 bpm Average heart rate 83 bpm Normal diurnal variation in heart rate is observed. Atrial fibrillation none Ectopic beats <1% atrial premature beats (APC? s) <1% ventricular premature beats (VPC's) No runs of SVT were detected No high grade ectopy Triggered and Patient Diary Events There were 4 triggered and 3 patient diary events: Symptoms reported include chest pain, pounding, short of breath, lightheaded, dizziness. These occurred during sinus rhythm with HR range 76 to 102 bpm. Triggered events occurred during sinus rhythm with HR range 74 to 129 bpm. Conclusion(s): ?? 1) Predominant rhythm is sinus. 2) Symptoms occurred during normal sinus rhythm and sinus tachycardia. 3) No sustained arrhythmias. Nicolas Cintron MD S Cardiac Electrophysiology 06/14/2019 9:23 AM Tu Levy MD CARDIAC SERVICES OR DERABLES * EKG 12 Lead (06/03/2019 10:58 AM EDT) Ventricular rate 86 BPM MUSE SYSTEM Atrial Rate 86 BPM MUSE SYSTEM P-R Interval 118 ms MUSE SYSTEM QRS Duration 76 ms MUSE SYSTEM Q-T Interval 338 ms MUSE SYSTEM QTC Calculated (Bezet) 404 ms MUSE SYSTEM Calculated P [place] 67 degrees MUSE SYSTEM Calculated R [place] 71 degrees MUSE SYSTEM Calculated T [place] 82 degrees MUSE SYSTEM INTERPRETATION Normal sinus rhythm with sinus arrhythmia Nonspecfic ST segment changes Abnormal ECG No previous ECGs available Confirmed by MD Tatiana, Carroll Goldsmith ([id number]) on 06/03/2019 10:10:32 PM MUSE SYSTEM 06/03/2019 10:5 8 AM EDT 06/03/2019 10:10 PM EDT Tu Levy MD ECG ORDERABLES MUSE SYSTEM documented in this encounter Visit Diagnoses Diagnosis Tachycardia- Primary Tachycardia, unspecified Palpitations Tachycardia Tachycardia, unspecified Palpitations documented in this encounter Care Teams Youth Program Director Relationship Specialty Start Date End Date Teri Gomez APRN [address] [place] [address] PCP - General Internal Medicine 08/07/17 documented as of this encounter
--- OUTSIDE RECORDS SUMMARY | 2024-10-18 22:43 | XMS_ITS | Encounter Summary ---
Author Organization [facility] Address [facility] [place] [address] Care Team Providers Care Core Filer Name Role Phone Teri Gomez APRN Primary Care Provider [phone] Reason for Visit * Reason Comments Palpitations Follow-up Ekg Encounter Details Date Type Department Care Team (Late st Contact Info) Description 08/06/2019 11:20 AM EST Office Visit Cardiology at [address] [phone] Tu Levy MD [facility] [place] [address] Tachycardia (Primary Dx); Palpitations Social History Tobacco [...] Sign Reading Time Taken Comments Blood Pressure 123/73 08/06/2019 11:00 AM EST Pulse 115 08/06/2019 11:00 AM EST Temperature - - Respiratory Rate 12 08/06/2019 11:00 AM EST Oxygen Saturation 100% 08/06/2019 11:00 AM EST Inhaled Oxygen Concentration - - Weight 61.1 kg (134 lb 9.6 oz) 08/06/2019 11:00 AM EST Height 165.1 cm (5' 5) 08/06/2019 11:00 AM EST Body Mass Index 22.4 08/06/2019 11:00 AM EST documented in this encounter Progress Notes * Tu Levy MD - 08/06/2019 11:20 AM EST Images from the original note were not included. [facility] [place] [address] [id number] CARDIOLOGY/ VASCULAR OUTPATIENT NOTE Harika Potter Teri Gomez APRN From the prior note (Eddie Velasquez, jeep driver): Ms Harika Potter is a pleasant 23 [...] will repeat a ZIO patch monitoring again. ?? 1. Palpitations: - Structurally normal heart and [...] potential EP study vs loop recorder placement. ?? ZIO results: Predominant rhythm - sinus rhythm ?? Minimum sinus rate 49 bpm Maximum sinus rate 177 bpm ?? Average heart rate 83 bpm ?? Normal diurnal variation in heart rate is observed. ?? Atrial fibrillation none ?? Ectopic beats ?? <1% atrial premature beats (APC? s) <1% ventricular premature beats (VPC's) ?? No runs of SVT were detected ?? No high grade ectopy ?? Triggered and Patient Diary Events ?? There were 4 triggered and 3 patient diary events: ?? Symptoms reported include chest pain, pounding, short of breath, lightheaded, dizziness. These occurred during sinus rhythm with HR range 76 to 102 bpm. ?? Triggered events occurred during sinus rhythm with HR range 74 to 129 bpm. ?? Conclusion(s): 1. Predominant rhythm is sinus. 2. Symptoms occurred during normal sinus rhythm and sinus tachycardia. 3. No sustained arrhythmias. ?? SUBJECTIVE: 23 year old female returns for follow-up of palpitations. We reviewed the Zio together (above). Despite the results, she still feels palpitations on a daily basis. 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 Lives in [facility]. She states that she has a long history of tachycardia. She states that her resting HR is rarely under 100, sometimes in the 90s. It has been mentioned to her previously that she might have POTS. She occasionally gets lightheaded and dizzy when she goes from sitting to standing. Sometimes when she is just walking. She was put on metoprolol 25mg at one point in the past (about one year ago) bya glass science engineer at [facility] (Dr. Boss) and she states that she felt horrible (dizzy, LH, nauseous) on it (was on it 2.5 months) so she stopped this. She has had syncope about 4-5 times per year. She says that she recovers in 2-3 minutes and then she is fine. Almost all of the episodes occur after going from sitting to standing. PAST MEDICAL HISTORY Patient Active Problem List Diagnosis ??? Tachycardia ??? Palpitations ??? Asthma ??? Anxiety ??? Irritable bowel syndrome ??? Chronic nausea ??? Contact dermatitis ??? Acne Meds: Current Outpatient Medications Medication Sig Dispense Refill ??? XULANE 150-35 mcg/24 hr Patch Weekly 0 ??? triamcinolone (KENALOG) 0.1 % Ointment Apply topically to hands twice daily for two weeks on and two weeks off. (Patient not taking: Reported on 08/06/2019) 80 g 0 OBJECTIVE: BP 123/73 Pulse (!) 115 Resp 12 Ht 165.1 cm (5' 5) Wt 61.1 kg (134 lb 9.6 oz) SpO2 100% BMI 22.40 kg/m?? Physical Exam: General: well developed, well nourished HEENT: PERRLA Neck: supple, JVP normal Lungs: clear to ascultation Cardiac: RRR, no murmurs, rubs or gallops Abdomen: nontender, nondistended Extremities: normal ROM, No edema. 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 As a administrative nursing supervisor, she is fairly observant and she states that when she checks her pulse - it isRARELY below 100 (at rest). Occasionally it is in the 90s. The zio does not completely capture thissince it will average day and night HR. She get lightheaded with changes in position (most often from sitting to standing) and has had multiple episodes of syncope (up to 5 episodes this year alone).She recovers very quickly. We discussed the following treatment strategies: 1. Up To Date referenced a study of jogging in younger patients with POTS and this seems to help. She was previously an athlete (competitive swimmer) and I think a light jogging scheduled 3X per weekwould be reasonable. 2. She can have a slightly higher salt diet and should stay well hydrated with some extra fluid intake. 3. We discussed the pros/cons of florinef. She is going to try 0.1mg po qam. This can be increased to a max dose of 0.3 mg po qd and should be taken in the morning. We did not start any midodrine at this time. 4. I supplied her with information on POTS and we will plan for follow-up in 3 months or prn. documented in this encounter Plan of Treatment Not on file documented as of this encounter Procedures Procedure Name Priority Date/Time Associated Diagnosis Comments EKG 12-LEAD Routine 08/06/2019 11:09 AM EST Tachycardia documented in this encounter Results * EKG 12 Lead (08/06/2019 11:09 AM EST) Ventricular rate 84 BPM MUSE SYSTEM Atrial Rate 84 BPM MUSE SYSTEM P-R Interval 114 ms MUSE SYSTEM QRS Duration 74 ms MUSE SYSTEM Q-T Interval 354 ms MUSE SYSTEM QTC Calculated (Bezet) 418 ms MUSE SYSTEM Calculated P Shelley 53 degrees MUSE SYSTEM Calculated R Shelley 69 degrees MUSE SYSTEM Calculated T Shelley 76 degrees MUSE SYSTEM INTERPRETATION Normal sinus rhythm Normal ECG When compared with ECG of 03-JUN-2019 10:58, No significant change was found Confirmed by MD Severino Megan ([id number]) on 08/09/2019 8:46:10 AM MUSE SYSTEM 08/06/2019 11:0 9 AM EST 08/09/2019 8:46 AM EST Tu Levy MD ECG ORDERABLES MUSE SYSTEM documented in this encounter Visit Diagnoses Diagnosis Tachycardia- Primary Tachycardia, unspecified Palpitations documented in this encounter Care Teams Core Filer Relationship Specialty Start Date End Date Teri Gomez APRN [address] [place] [address] PCP - General Internal Medicine 08/07/17 documented as of this encounter
--- OUTSIDE RECORDS SUMMARY | 2024-10-18 22:43 | XMS_ITS | Clinical Summary ---
Author Organization [facility] Address [facility] [place] [address] Care Team Providers Care Rug Dyer Helper Name Role Phone Teri Gomez APRN Primary Care Provider [phone] Allergies No known active allergies Medications Medication Sig Dispensed Refills Start Date End Date Status levonorgestrel (KYLEENA IU) by Intrauterine route. Active traMADoL (Ultram) 50 mg Tablet Take 1 tablet by mouth every 6 hours as needed for Pain. 10 tablet 08/06/2021 Active Additional Information Patient not taking.Reported on 08/17/2021 spironolactone (ALDACTONE) 50 mg Tablet Take 2 tablets by mouth daily. 60 tablet 2 10/16/2021 Active dextroamphetamine- amphetamine (Adderall) 10 mg Tablet TAKE 1 TABLET BY MOUTH TWICE DAILY 09/18/2021 Active tretinoin (Retin-A) 0.05 % CreamIndications:A cne vulgaris APPLY TOPICALLY TO THE AFFECTED AREA EVERY NIGHT 45 g 10/28/2022 Active clindamycin-benzoy l peroxide (BENZACLIN) 1-5 % GelIndications:Acn e vulgaris APPLY TOPICALLY TO THE AFFECTED AREA TWICE DAILY 25 g 10/28/2022 Active Active Problems Problem Noted Date Diagnosed Date Tachycardia 06/01/2019 Palpitations 06/01/2019 Asthma 06/01/2019 Anxiety 06/01/2019 Irritable bowel syndrome 03/10/2015 Chronic nausea 03/10/2015 Contact dermatitis 05/06/2014 Acne 11/04/2012 Family History Medical History Relation Comments No Known Problems Father No Known Problems Mother No Known Problems Sister Relation Status Comments Father Alive Mother Alive Sister Alive Social History Tobacco Use Types Packs/Day Years [...] Orientation Straight 08/03/2021 3: 50 PM EDT Last Filed Vital Signs Vital Sign Reading [...] Mass Index 24.13 08/06/2021 6:43 AM EST Plan of Treatment Health Maintenance Due Date Last Done Comments HIV screen 2015 Hepatitis C Screening 2015 Hepatitis B vaccine (0-59 yrs) (1) 2016 Pneumococcal Vaccine: At-Risk 5-49yrs (1 of 2 - PCV) 1 11/11/2015 Tetanus/Diphtheria/Pertussis Vaccines (1 - Tdap) 09/10 PAP Smear 2018 Covid-19 Vaccine (1 - season) 2024 Influenza (Flu) vaccine (1 o f 1 - Influenza standard series) 05/30/2024 Care Teams Rug Dyer Helper Relationship Specialty Start Date End Date Teri Gomez APRN [address] [place] [address] PCP - General Internal Medicine 08/07/17
--- OUTSIDE RECORDS SUMMARY | 2024-10-18 22:43 | XMS_ITS | Encounter Summary ---
Author Organization [facility] Address [place] [address] Care Team Providers Care Straw Hat Washer Operator Name Role Phone Elizabeth Gomezadam Brasher APRN Primary Care Provider [phone] Reason for Referral * Diagnostic Test (Routine) - Closed Specialty Diagnoses / Procedures Referred By Contac t Referred To Contact Cardiology Diagnoses Tachycardia Palpitations Procedures Eddie Lopez MD [facility] [place] [address] [facility] Cardiology [address] [place] [phone] Referral ID Status Reason Start Date Expiration Date V isits Requested Visits Authorized [id number] Closed Specialty Service Requested 06/03/2019 06/14/2019 1 1 Reason for Visit * Diagnostic Test (Routine) - Closed Specialty Diagnoses / Procedures Referred By Contac t Referred To Contact Cardiology Diagnoses Tachycardia Palpitations Procedures Eddie Lopez MD [facility] [place] [address] [facility] Cardiology [address] [place] [phone] Referral ID Status Reason Start Date Expiration Date V isits Requested Visits Authorized [id number] Closed Specialty Service Requested 06/03/2019 06/14/2019 1 1 Encounter Details Date Type Department Care Team (Late st Contact Info) Description 06/03/2019 12:09 PM EDT - 06/03/2019 11:59 PM EDT Hospital Encounter Non-[place] [phone] Tu Levy MD [facility] [place] [address] Tachycardia; Palpitations Discharge Disposition: Home Social History Tobacco Use Types Packs/Day Years Used Date Smoking Tobacco: Former Cigarettes 1 3 2 014 2016 Smokeless Tobacco: Never Alcohol Use Standard Drinks/Week Comments Yes 0 (1 standard drink = 0.6 oz pur e alcohol) Sex and Gender Information Value Date Recorded Sex Assigned at Female 08/03/2021 3:50 PM EDT Gender Identity Female 08/03/2021 3:50 PM EDT Sexual Orientation Straight 08/03/2021 3: 50 PM EDT documented as of this encounter Medications at Time of Discharge Medication Sig Dispensed Refills Start Date End Date triamcinolone (KENALOG) 0.1 % OintmentIndications:Arpan matitis Apply topically to hands twice daily for two weeks on and two weeks off. 80 g 11/08/2016 08/07/2021 documented as of this encounter Plan of Treatment Not on file documented as of this encounter Procedures Procedure Name Priority Date/Time Associated Diagnosis Comments SALVATORE Routine 06/03/2019 12:16 PM EDT Tachycardia Palpitations documented in this encounter Results * [place] (06/03/2019 12:16 PM EDT) Anatomical Region Laterality Modality Other Narrative 06/14/2019 9:23 AM EDT [facility] ? Zio Patch? Ambulatory Cardiac Event [...] 3) No sustained arrhythmias. Nicolas Cintron MD [facility] Cardiac Electrophysiology 06/14/2019 9:23 AM Tu Levy MD CARDIAC SERVICES OR DERAB[facility] documented in this encounter Visit Diagnoses Diagnosis Tachycardia Tachycardia, unspecified Palpitations documented in this encounter Care Teams Straw Hat Washer Operator Relationship Specialty Start Date End Date Teri Gomez APRN [address] [place] [address] PCP - General Internal Medicine 08/07/17 documented as of this encounter
--- OUTSIDE RECORDS SUMMARY | 2024-10-18 22:43 | XMS_ITS | Encounter Summary ---
Author Organization [facility] Address [address] [place] [address] Care Team Providers Care Supportive Employment Case Manager Name Role Phone Unknown, Provider Primary Care Provider Unava ilable Encounter Details Date Type Department Care Team (Late st Contact Info) Description 07/13/2020 Lab Requisition [facility] Pathology & Laboratory Medicine - [facility] [address] [place] [address] Outr Resulting Lab, Provider Social History Tobacco [...] Procedure Name Priority Date/Time Associated Diagnosis Comments HOLD SST Today 07/13/2020 9:00 EDT HEPATITIS C AB W REFLEX TO HCV RNA BY PCR Today 07/13/2020 9:00 EDT HEPATITIS B SURFACE ANTIGEN Today 07/13/2020 9:00 EDT documented in this encounter Results * HOLD SST (07/13/2020 9:00 EDT) Hold Hold 07/13/2020 17:15 EDT [facility] Blood VENOUS BLOOD / Unknown 07/13/2020 9:00 EDT 07/13/2020 16:14 EDT us Provider Outr Resulting Lab LAB INFO SERVICE AND SUPPORT & PHONE RESULT Final Result [facility] [address] [place] [address] * HEPATITIS B SURFACE ANTIGEN (07/13/2020 9:00 EDT) Hep B Surface Ag Negative Negative 07/14/2020 8:35 EDT [facility] Blood VENOUS BLOOD / Unknown 07/13/2020 9:00 EDT 07/13/2020 16:12 EDT us Provider Outr Resulting Lab CHEMISTRY & BLOOD GA S ORDERABLES Final Result [facility] [address] [place] [address] * HEPATITIS C AB W REFLEX TO HCV RNA BY PCR (07/13/2020 9:00 EDT) Hep C Antibody Negative Negative 07/14/2020 9:28 EDT [facility] Blood VENOUS BLOOD / Unknown 07/13/2020 9:00 EDT 07/13/2020 16:13 EDT us Provider Outr Resulting Lab CHEMISTRY & BLOOD GA S ORDERABLES Final Result Performing Organization Address City/[facility]/ZIP Co de Phone Number [facility] [address] [place] [address] documented in this encounter Visit Diagnoses Not on filedocumented in this encounter Care Teams Supportive Employment Case Manager Relationship Specialty Start Date End Date Unknown, Provider, PCP - General 09/29/19 documented as of this encounter
--- OUTSIDE RECORDS SUMMARY | 2024-10-18 22:43 | XMS_ITS | Referral Summary ---
Author Organization [facility] Address [address] [place] [address] Care Team Providers Care Esl Instructional Assistant Name Role Phone Unknown, Provider Primary Care [...] Orientation Not on file Plan of Treatment Not on file Procedures Procedure Name Priority Date/Time Associated Diagnosis Comments HEPATITIS C AB W REFLEX TO HCV RNA BY PCR Today 07/13/2020 9:00 EDT from Last 3 Months or Most Recently Relevant to Health Maintenance Results * HEPATITIS C AB W REFLEX TO HCV RNA BY PCR (07/13/2020 9:00 EDT) Hep C Antibody Negative Negative 07/14/2020 9:[address] [facility] Blood VENOUS BLOOD / Unknown 07/13/2020 9:00 EDT 07/13/2020 16:13 EDT us Provider Outr Resulting Lab CHEMISTRY & BLOOD GA S ORDERABLES Final Result [facility] [address] [place] [address] from Last 3 Months or Most Recently Relevant to Health Maintenance Insurance [employer] MEDICAID [place] Care Teams Esl Instructional Assistant Relationship Specialty Start Date End Date Unknown, Provider, PCP - General 09/29/19
--- NOTE | 2024-10-18 22:56 | ED.GENADUL_ITS ---
Discharge Plan Disposition Patient Disposition: Home Condition: Stable Discharge Details Clinical Impression: Vomiting and diarrhea Primary Care Provider: Teri Gomez ED Provider: Preeti Nelson Home Meds and New Rx's Prescriptions: New ondansetron 4 mg tablet,disintegrating 4 mg PO Q6H PRN (Reason: nausea and vomiting) Qty: 30 0RF No Action tretinoin [Retin-A] 0.05 % cream 1 applic topical QHS Rx Instructions: pea size amt to face nightly per note dated 10/11/20 [facility] dextroamphetamine-amphetamine [Adderall] 5 mg tablet 20 mg PO BID Patient Comments: 09/10/21 [facility] noted 10/29/21 - patient states she is taking 20 mg BID quetiapine [Seroquel] 50 mg tablet 50 mg PO QHS Patient Comments: 01/30/22 noted valacyclovir 500 mg tablet 500 mg PO Q12H Qty: 10 4RF Discharge Instructions Instructions: Nausea and Vomiting, Adult ED Additional Instructions: Your symptoms today are likely due to a viral illness. Your lab work today does not reveal an acute abnormality or significant dehydration. You were given IV fluids. You were given Zofran to go home with and a prescription was also sent to your pharmacy to take as needed. Continue clear liquids and increase diet slowly as tolerated. Discharge Data Discharge Date/Time-TO BE ENTERED AT DEPARTURE: 10/18/24 23:21 HPI General Date/Time Provider Initiated Documentation: 10/18/24 21:25 . Limitations to Documentation: no limitations . Information obtained by: patient . HPI Narrative: 29y F with PMH presents for evaluation of vomiting and diarrhea. Reports symptoms started earlier in the day and she has had repeated episodes of vomiiting. diarrhea started a few hours later, frequent, non bloody. no fever. no medicines tried. mild abdominal cramping when shes vomiting. works at [employer] where several patients have similar symptoms. She says because of her POTs she was started to feel light headed and didn't want to pass out. Related Data Home Medications ?Medication ?Instructions ?Recorded ?Confirmed tretinoin 0.05 % topical cream 1 applic topical QHS 10/12/21 10/18/24 (Retin-A) dextroamphetamine-amphetamine 5 mg 20 mg PO BID 10/29/21 10/18/24 tablet (Adderall) quetiapine 50 mg tablet (Seroquel) 50 mg PO QHS 02/07/22 10/18/24 valacyclovir 500 mg tablet 500 mg PO Q12H #10 tabs 04/14/24 10/18/24 ondansetron 4 mg disintegrating 4 mg PO Q6H PRN nausea and 10/18/24 tablet vomiting #30 tabs Previous Rx's ?Medication ?Instructions ?Recorded valacyclovir 500 mg tablet 500 mg PO Q12H #10 tabs 04/14/24 ondansetron 4 mg disintegrating 4 mg PO Q6H PRN nausea and 10/18/24 tablet vomiting #30 tabs Allergies Allergy/AdvReac Type Severity Reaction Status Date / Time No Known Drug Allergies Allergy none Verified 10/18/24 21:42 General Stated Complaint: Nausea/Vomit/Diar DIANE: 3 Exam Narrative Exam Narrative: well developed, no acute distress afebrile mild tachycardia CTAB abd soft non tender Course Vital Signs Vital signs: Vital Signs Temperature 36.6 C 10/18/24 21:27 Pulse 106 H 10/18/24 21:27 Respiratory Rate 18 10/18/24 21:27 Blood Pressure 130/89 10/18/24 21:27 Pulse Oximetry 99 10/18/24 21:27 Temperature 36.6 C 10/18/24 21:37 Temperature Source Oral 10/18/24 21:37 Pulse 113 H 10/18/24 21:37 Respiratory Rate 19 10/18/24 21:37 Blood Pressure 130/89 10/18/24 21:37 Blood Pressure Position Supine 10/18/24 21:37 Pulse Oximetry 100 10/18/24 21:37 Oxygen Delivery Method Room Air 10/18/24 21:37 Oxygen Flow Rate 0 10/18/24 21:27 Lab/Test Results Lab/Test Results: Laboratory Tests Range/Units 10/18/24 10/18/24 21:47 22:01 WBC (4.4-10.8) 10^3/uL 16.03 H RBC (3.93-5.22) 10^6/uL 5.05 Hgb (11.2-15.7) g/dL 16.1 H Hct (36.0-46.0) % 46.4 H MCV (80-95) fL 92 MCH (27.0-33.0) pg 31.9 MCHC (32.0-36.0) % 34.7 RDW (11.7-14.6) % 11.8 Plt Count (130-400) 10^3/uL 282 MPV (8.0-11.0) fL 10.6 Immature Gran % % 0.4 Neutrophils % % 87.6 Lymphocytes % % 5.3 Monocytes % % 5.7 Eosinophils % % 0.6 Basophils % % 0.4 Nucleated RBC % (0.0-0.3) % 0.0 Absolute Neutrophils (1.2-6.7) 10^3/uL 14.04 H Absolute Lymphocytes (1.2-3.4) 10^3/uL 0.85 L Absolute Monocytes (0.1-0.8) 10^3/uL 0.91 H Absolute Eosinophils (0.0-0.7) 10^3/uL 0.10 Absolute Basophils (0.0-0.2) 10^3/uL 0.06 Sodium (136-145) mmol/L 142 Potassium (3.5-5.1) mmol/L 3.5 Chloride (98-107) mmol/L 103 Carbon Dioxide (21.0-32.0) mmol/L 25.4 Anion Gap (3-11) mmol/L 13.6 H BUN (7-18) mg/dL 11 Creatinine (0.55-1.02) mg/dL 0.9 Est GFR (CKD-EPI 2020) (mL/min/1.73m2) 89.86 Glucose (74-106) mg/dL 166 H Calcium (8.5-10.1) mg/dL 9.7 Serum HCG, Qual Negative Add-On Test Request DONE Medical Decision Making emergent evaluation of n/v/d. likely viral illness given high community prevalence. Given history of POTS, will resuscitate with IV fluids. Labs evaluated, no significant abnormality, electrolyte derangement. Thatcher better after fluids and anti emetics and was tolerating PO. Discharged with zofran. Recommend liquid diet, advance as tolerated. RTER precautions advised. Quality:[facility] Health Related Social Needs: No Data to Display PFSH All Active Problems (Updated 10/18/24 @ 22:53 by Preeti Nelson MD) Vomiting and diarrhea (Acute) History of bilateral breast reduction surgery (Acute) [facility] Acne vulgaris (Acute) Anxiety state, unspecified (Acute) 09/10/21 Attention deficit disorder predominant inattentive type (Acute) 09/10/[address] [facility] Visit Freckles (Acute) Impulsive (Acute) Concentration deficit (Acute) Abdominal pain (Acute) Macromastia (Acute) 04/16/21-[facility] plastic surg note Family history of DVT (Acute) Superficial thrombophlebitis (Acute) Imbalance (Acute) Frontal headache (Acute) Dizziness (Acute) Nausea (Acute) Heavy menses (Acute) History of anemia (Acute) Chest pain (Acute) Palpitations (Acute) [facility] cardio report 08/06/19 Tachycardia (Chronic) 06/03/19 [facility] Cardiology 08/06/19- probable postural orthostatic tacycardia. [facility] cardiology Psoriasis (Acute 05/15/18) History of positive test for herpes simplex virus type 1 by PCR (Acute 02/03/17) HSV-1 (herpes simplex virus 1) infection (Acute 05/09/16) Exercise-induced asthma (Acute 05/08/17) Contraception (Acute 12/30/14) 12/29/2020 bilateral salpingectomy. Acne (Acute 11/04/12) Medical History (Updated 10/18/24 @ 22:53 by Preeti Nelson MD) POTS (postural orthostatic tachycardia syndrome) 2019. S/p evaluation by cardiology Tachycardia with heart rate 121-140 beats per minute Irritable bowel syndrome (IBS) (03/13/15) seen by [facility]. 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 initial exposure. vulva. Rx with Acyclovir. Exposure to chlamydia (~04/2016) + CT probe. Rx with Azithromycin. 05/2016 [facility] neg. Surgical History (Updated 03/20/22 @ 17:19 by Rashmi Amato MD) H/O bilateral breast reduction surgery (~08/06/21) History of sterilization procedure 12/29/2020. At time of repeat delivery. Bilateral salpingectomy. S/P shoulder surgery Tonsillectomy and adenoidectomy (~2002) Family History Father DVT (deep venous thrombosis) Paternal Grandfather Heart disease blood clot in heart Social History (Updated 07/12/21 @ 13:31 by Celine Smith RN) Smoking/Tobacco Use Status: Former Tobacco Use Quit Date: 02/24/23 Tobacco: How many years used: 4 Second Hand Exposure: No Smoking risk assessment performed?: Yes Alcohol Intake: current Alcohol Intake frequency: a few times a month Alcohol type: wine Details: stopped w/ knowledge of . 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 Date GA/Weeks # Preg Succ Route Wgt Sex Labor Lgth Anesth esia Location [facility] 03/12/17 41 No 4706.021 g Male elective c /s for lga w/o labor [facility] 12/30/20 37 No 4025.632 g Male An ne [place] Delivery Date: 03/12/17 Last Updated by: Rena Wooten GDM, diet controlled. 10 days overdue, 10lbs 6 oz. by sonnelsy, scheduled primary C/S that day. Delivery Date: 12/30/20 Last Updated by: KAYLA Mishra Have you Been Recently Intoxicated or Drunk Within the Last 30 days?: No Have you Ever Experienced Previous Episodes of Alcohol Withdrawal?: No Have you ever Experienced Withdrawal Seizures?: No Have you ever Experienced Delirium Tremens(DT)s?: No Have you ever undergone Alcohol Rehabilitation Treatment (i.e, inpt ot outpatient treatment programs)?: No Have you ever Experienced Blackouts?: No Have you ever Combined Alcohol with other Downers within the last 90 days?: No Have you ever Combined Alcohol with any other Substance of Abuse during the last 90 days?: No Positive Blood Alcohol level on Presentation? [PCS.BAL]: No Evidence of Increased Autonomic Activity (i.e. HR>120, tremor, sweating, agitation, nausea)?: No Result: 0
[2024-10-18 23:14] VITALS: BP 119/74; PULSE 96; RESP 16; O2SAT 100
[2024-10-18] MEDS: Ondansetron O.D.T. 4 MG TABEF, 3 TABS/BTL PO (23:22)
== END 2024-10-18 23:21 | disposition home or self-care (01) ==
PROVIDERS: Emergency Provider Emergency Medicine; PCP Nurse Practitioner
DX: R11.10 Vomiting, unspecified (principal); R19.7 Diarrhea, unspecified
CPT/HCPCS: 36415; 80048; 96361; 96374; 99284; 84703; 85025; 99283; J2405

== ENCOUNTER 2024-12-08 13:49 | Outpatient (REF) | payer SELFPAY | END 2024-12-08 13:50 | disposition home or self-care (01) | LOC: LBN 13:49 | PROVIDERS: PCP Nurse Practitioner; Visit Provider Obstetrics & Gynecology | DX: N93.9 Abnormal uterine and vaginal bleeding, unspecified (principal) | CPT/HCPCS: 88142; 87624 ==

== ENCOUNTER 2024-12-30 12:23 | Outpatient (CLI) | payer SELFPAY ==
[2024-12-30 11:32] LABS: HCT 41.8 % (36.0-46.0); HGB 14.4 g/dL (11.2-15.7); MCH 32.7 pg (27.0-33.0); MCHC 34.4 % (32.0-36.0); MCV 95 fL (80-95); MPV 10.5 fL (8.0-11.0); Platelet Count 288 10^3/uL (130-400); RDW 12.1 % (11.7-14.6); RDW-SD 42.3 fL; WBC 5.39 10^3/uL (4.4-10.8)
[2024-12-30 12:33] LABS: Iron 53 ug/dL (50-170); Total Iron Binding Capacity 347 ug/dL (250-450); Transferrin Sat 15 % (15-50)
[2024-12-30 13:21] LABS: Ferritin 13 ng/mL (8-252)
[2025-01-01 12:12] LABS: Coag FactorVIII Activity Assay 89 % (55 - 200); von Willebrand Factor Activity 60 % (55 - 200); von Willebrand Factor Ag 60 % (55 - 200)
== END 2024-12-30 12:24 | disposition home or self-care (01) ==
LOC: LBO 12:27
PROVIDERS: PCP Nurse Practitioner; Visit Provider Obstetrics & Gynecology
DX: N93.9 Abnormal uterine and vaginal bleeding, unspecified (principal)
CPT/HCPCS: 36415; 85027; 85240; 85246; 85390; 85397; 82728; 83540; 83550

== ENCOUNTER 2025-01-26 06:57 | Emergency (ER) | payer OTHER, SELFPAY ==
[2025-01-26 06:58] VITALS: BP 142/92; PULSE 90; RESP 15; TEMP 36.8; O2SAT 99
[2025-01-26 07:02] VITALS: BP 142/92; PULSE 90; RESP 15; TEMP 36.8; O2SAT 99
--- NOTE | 2025-01-26 07:28 | DI.CT_ITS ---
Exam(s) CT ABDOMEN PELVIS W EXAM: CT ABDOMEN PELVIS W CLINICAL HISTORY: Left flank pain. TECHNIQUE: Imaging Protocol: Axial computed tomography images with coronal and sagittal reformatted images were created and reviewed CONTRAST MATERIAL: Intravenous: Omnipaque 350 Contrast volume:85 ml Oral: no COMPARISON: CT CT ABDOMEN PELVIS W from 03/30/2023 FINDINGS: ABDOMEN and PELVIS: Lung Bases: No acute findings. Liver: Normal density. No suspicious mass. Gallbladder and biliary tract: No radiodense calculus. No wall thickening or pericholecystic fluid. No biliary dilation. Pancreas: Normal density. No abnormal calcifications or inflammatory process. No evidence of mass. Spleen: Normal. Kidneys: Normal size, contour and axis. No radiodense stones. No obstructive uropathy. No suspicious masses seen. Adrenal glands: No masses seen. Vasculature: Abdominal aorta non-dilated. Soft tissues: Unremarkable. Bladder: No gross wall thickening. No calculi.No focal mass. Bowel: No obstruction. No bowel wall thickening. Appendix normal. Peritoneal cavity: No ascites. No focal collection. No mesenteric inflammatory response. No free air . Bones: Unremarkable for age. Reproductive organs: Unremarkable. Lymph nodes: No pathologically enlarged lymph nodes. IMPRESSION:: No acute abnormality in the abdomen or pelvis. RADIATION DOSE DELIVERED: 337.19mGy.cm Total DLP DATA REPOSITORY: All CT scans at this facility are submitted to the National Radiology Data Registry (NRDR) Dose Index Registry (DIR) with the [employer] (A[employer]). RADIATION OPTIMIZATION: All CT scans at this facility use at least one of these dose optimization te chniques: automated exposure control; mA and/or kV adjustment per patient size (includes targeted exa ms where dose is matched to clinical indication); or iterative reconstruction.
[2025-01-26] MEDS: Ondansetron 4 MG/2 ML VIAL IVP (07:45)
[2025-01-26] MEDS: Ketorolac 15 MG/ML VIAL IVP (07:45)
[2025-01-26] MEDS: ACETAMINOPHEN 1,000 MG/100 ML BTL 400 MG IVPB (07:46)
--- NOTE | 2025-01-26 07:51 | ED.GENADUL_ITS ---
Discharge Plan Disposition Patient Disposition: Home Condition: Good Discharge Details Chief Complaint: Abd Prob Clinical Impression: Abdominal pain Primary Care Provider: Teri Gomez ED Provider: Kiet Love Home Meds and New Rx's Prescriptions: No Action tranexamic acid 650 mg tablet 1,300 mg PO Q8H 5 Days Qty: 30 3RF valacyclovir 500 mg tablet 500 mg PO Q12H Qty: 10 4RF Discharge Instructions Instructions: Abdominal Pain, Adult ED Additional Instructions: At this time as we discussed together your workup has returned reassuring. There is no evidence of ovarian torsion, large ovarian cyst, diverticulitis, or other acute surgical pathology, however there could be other nonemergent pathologies that may be causing her pain. Please take Tylenol, Motrin, and use a heating pad to help with the pain. If your symptoms persist despite this you may need reassessment. If you notice any worsening of your symptoms, or any new symptoms such as vomiting, diarrhea, fever, chills, shortness of breath, chest pain, numbness, weakness, or fainting , please return immediately to the emergency department for reevaluation. Please follow up with your primary care provider as soon as possible for reassessment and reevaluation. As always, it was a pleasure participating in your medical care today. Referrals: Adore Lee [Emergency Nurse] - [facility] General Date/Time Provider Initiated Documentation: 01/26/25 07:01 . [facility] Narrative: This is a 29-year-old female with a past medical history of 2 C- sections, ovarian cyst, HSV type I, exercise-induced asthma, who presents today for evaluation of left-sided abdominal pain. Patient states that at 4 AM she woke up suddenly with left-sided flank pain. It was sharp in nature, is present in the left flank and left lower quadrant. It is unremitting. She has waves of severity where she has associated nausea and vomiting. She denies any diarrhea. She states that this feels more severe than her previous ovarian cyst. She denies any right-sided pain. She denies any urinary complaint. No numbness tingling or weakness. No other complaints. No hematuria. Related Data Home Medications ?Medication ?Instructions ?Recorded ?Confirmed valacyclovir 500 mg tablet 500 mg PO Q12H #10 tabs 04/14/24 01/26/25 tranexamic acid 650 mg tablet 1,300 mg (2 x 650 mg) PO Q8H 5 12/08/24 01/26/25 days #30 tabs Previous Rx's ?Medication ?Instructions ?Recorded valacyclovir 500 mg tablet 500 mg PO Q12H #10 tabs 04/14/24 tranexamic acid 650 mg tablet 1,300 mg (2 x 650 mg) PO Q8H 5 12/08/24 days #30 tabs Allergies Allergy/AdvReac Type Severity Reaction Status Date / Time No Known Drug Allergies Allergy none Verified 01/26/25 07:02 General Stated Complaint: Abd Prob DIANE: 3 Exam Narrative Exam Narrative: 1.Const: Well-nourished, Well-developed, appearing stated age 2.Eyes: PERRL, no conjunctival injection, and symmetrical lids. 3.ENT: Atraumatic external nose and ears. Moist MM. Neck: Symmetric, trachea midline, No thyromegaly. 4.CVS: +S1/S2, Peripheral pulses 2+ and equal in all extremities. Brisk ca pillary refill in all extremities. 5.RESP: Unlabored respiratory effort. Clear to auscultation bilaterally. No wheezes rales or rhonchi 6.GI: Soft, nondistended, no guarding or rebound, subjective tenderness in the left flank and left lower abdomen, however it is not worsened with palpation. 7.MSK: Normocephalic/Atraumatic, Extremities w/o deformity or ttp No cyanosis or clubbing, Normal movement of all extremities 8.Skin: Warm, Dry. No rashes or lesions. 9.Neuro: hair colorist II-XII grossly intact. Sensation grossly intact, no focal neurologic deficits. 10.Psych: (AAO) x3. Appropriate mood and affect Course Vital Signs Vital signs: Vital Signs Temperature 36.8 C 01/26/25 06:58 Pulse 90 01/26/25 06:58 Respiratory Rate 15 01/26/25 06:58 Blood Pressure 142/92 H 01/26/25 06:58 Pulse Oximetry 99 01/26/25 06:58 Temperature 36.8 C 01/26/25 07:02 Temperature Source Oral 01/26/25 07:02 Pulse 90 01/26/25 07:02 Respiratory Rate 15 01/26/25 07:02 Blood Pressure 142/92 H 01/26/25 07:02 Blood Pressure Position Sitting 01/26/25 07:02 Pulse Oximetry 99 01/26/25 07:02 Oxygen Delivery Method Room Air 01/26/25 07:02 Oxygen Flow Rate 0 01/26/25 07:02 Pain Level 8 01/26/25 07:45 Lab/Test Results Lab/Test Results: POC- Test(urine) Negative Medical Decision Making This is a 29-year-old female with a past medical history of 2 C- sections, ovarian cyst, HSV type I, exercise-induced asthma, who presents today for evaluation of left-sided abdominal pain. Patient states that at 4 AM she woke up suddenly with left-sided flank pain. It was sharp in nature, is present in the left flank and left lower quadrant. It is unremitting. She has waves of severity where she has associated nausea and vomiting. She denies any diarrhea. She states that this feels more severe than her previous ovarian cyst. She denies any right-sided pain. She denies any urinary complaint. No numbness tingling or weakness. No other complaints. No hematuria. Patient is currently on her menstrual cycle. She denies any atypical vaginal discharge. She denies any purulent vaginal discharge. No suprapubic tenderness. Exam demonstrates no significant reproducible tenderness in the left flank or abdomen, however her pain is in those locations and is still notably severe. Vital signs stable. Differential includes diverticulitis, ovarian cyst, kidney stone. She does not want opiate pain medication. Will give Toradol and Ofirmev, rehydrate, get CT imaging, monitor closely and reassess. 10:[address] imaging shows no evidence of acute process or significant cyst. Ultrasound was performed and shows no evidence of ovarian torsion. No signs of diverticulitis or kidney stone. No atypical vaginal discharge to suggest PID. She recently had STD testing and remains in a monogamous relationship. Recent STD testing at [facility] was negative. Patient pain is improved after NSAID therapy. Repeat assessment shows no signs of an acute surgical abdomen. With no evidence of ovarian torsion, tubo-ovarian abscess, diverticulitis or kidney stone or pyelonephritis, I do feel the patient is stable for discharge with no evidence of life-threatening etiology. She is able to tolerate p.o. Differential for nonemergent causes does include endometriosis, chronic adhesions. No evidence of obstruction. Patient will be discharged with continued NSAID therapy and heating pad and close monitoring. Discussed red flags which to return. I have extensively reviewed the treatment plan and discharge instructions with the patient. I have addressed all patient concerns at this time. The patient was made aware of what symptoms to monitor for that would warrant a return to the emergency department. Discussed the plan with the patient, they demonstrate verbal understanding and agreement with our assessment and plan at this time. The documentation in this chart was dictated using [employer] dictation software. Please excuse any dictation errors. FINDINGS: Bladder is unremarkable. UTERUS: Retroflexed.. 9.4 x 4.3 x 4.9 cm Endometrium: 4 mm Myometrium: Unremarkable. Cervix: Nabothian cyst. OVARIES: Right: Cyst or mass: None. 2.9 x 2.3 x 3.2 Left: Cyst or mass: None. 3.6 x 1.6 x 2.5 DOPPLER: Color: Symmetric and uniform flow to both ovaries. No hyperemia. CUL-DE-SAC: Free fluid: Trace IMPRESSION: 1. Normal-appearing uterus with endometrial stripe within normal limits. 2. Unremarkable bilateral ovaries. No evidence of torsion. FINDINGS: ABDOMEN and PELVIS: Lung Bases: No acute findings. Liver: Normal density. No suspicious mass. Gallbladder and biliary tract: No radiodense calculus. No wall thickening or pericholecystic fluid. No biliary dilation. Pancreas: Normal density. No abnormal calcifications or inflammatory process. No evidence of mass. Spleen: Normal. Kidneys: Normal size, contour and axis. No radiodense stones. No obstructive uropathy. No suspicious masses seen. Adrenal glands: No masses seen. Vasculature: Abdominal aorta non-dilated. Soft tissues: Unremarkable. Bladder: No gross wall thickening. No calculi.No focal mass. Bowel: No obstruction. No bowel wall thickening. Appendix normal. Peritoneal cavity: No ascites. No focal collection. No mesenteric inflammatory response. No free air. Bones: Unremarkable for age. Reproductive organs: Unremarkable. Lymph nodes: No pathologically enlarged lymph nodes. IMPRESSION:: No acute abnormality in the abdomen or pelvis. Quality:[facility] Health Related Social Needs: No Data to Display PFSH All Active Problems (Updated 01/26/25 @ 10:18 by Kite Love DO) Abdominal pain (Acute) Abnormal uterine bleeding (Acute) History of bilateral breast reduction surgery (Acute) [facility] Acne vulgaris (Acute) Anxiety state, unspecified (Acute) 09/10/21 Attention deficit disorder predominant inattentive type (Acute) 09/10/21 [facility] Visit Freckles (Acute) Impulsive (Acute) Concentration deficit (Acute) Abdominal pain (Acute) Macromastia (Acute) 04/16/21-[facility] plastic surg note Family history of DVT (Acute) Superficial thrombophlebitis (Acute) Imbalance (Acute) Frontal headache (Acute) Dizziness (Acute) Nausea (Acute) Heavy menses (Acute) History of anemia (Acute) Chest pain (Acute) Palpitations (Acute) [facility] cardio report 08/06/19 Tachycardia (Chronic) 06/03/19 [facility] 08/06/19- probable postural orthostatic tacycardia. [facility] cardiology Psoriasis (Acute 05/15/18) History of positive test for herpes simplex virus type 1 by PCR (Acute 02/03/17) HSV-1 (herpes simplex virus 1) infection (Acute 05/09/16) Exercise-induced asthma (Acute 05/08/17) Contraception (Acute 12/30/14) 12/29/2020 bilateral salpingectomy. Acne (Acute 11/04/12) Medical History POTS (postural orthostatic tachycardia syndrome) 2019. S/p evaluation by cardiology Tachycardia with heart rate 121-140 beats per minute Irritable bowel syndrome (IBS) (03/13/15) seen by [facility] Pedi GI. 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 initial exposure. vulva. Rx with Acyclovir. Exposure to chlamydia (~04/2016) + CT probe. Rx with Azithromycin. 05/2016 [facility] neg. Surgical History H/O bilateral breast reduction surgery (~08/06/21) History of sterilization procedure 12/29/2020. At time of repeat delivery. Bilateral salpingectomy. S/P shoulder surgery Tonsillectomy and adenoidectomy (~2002) Family History Father DVT (deep venous thrombosis) Paternal Grandfather Heart disease blood clot in heart Social History Smoking/Tobacco Use Status: Former Tobacco Use Quit Date: 02/24/23 Tobacco: How many years used: 4 Second Hand Exposure: No Smoking risk assessment performed?: Yes Alcohol Intake: current Alcohol Intake frequency: a few times a month Alcohol type: wine Details: stopped w/ knowledge of . 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 Date GA/Weeks # Preg Succ Route Wgt Sex Labor Lgth Anesth esia Location [facility] 03/12/17 41 No 4706.021 g Male elective c /s for lga w/o labor [facility] 12/30/20 37 No 4025.632 g Male An ne [place] Delivery Date: 03/12/17 Last Updated by: Rena Wooten GDM, diet controlled. 10 days overdue, 10lbs 6 oz. by sonnelsy, scheduled primary C/S that day. Delivery Date: 12/30/20 Last Updated by: KAYLA Mishra Have you Been Recently Intoxicated or Drunk Within the Last 30 days?: No Have you Ever Experienced Previous Episodes of Alcohol Withdrawal?: No Have you ever Experienced Withdrawal Seizures?: No Have you ever Experienced Delirium Tremens(DT)s?: No Have you ever undergone Alcohol Rehabilitation Treatment (i.e, inpt ot outpatient treatment programs)?: No Have you ever Experienced Blackouts?: No Have you ever Combined Alcohol with other Downers within the last 90 days?: No Have you ever Combined Alcohol with any other Substance of Abuse during the last 90 days?: No Result: 0
[2025-01-26 07:52] LABS: Lactate 0.9 mmol/L (<or=2.0)
[2025-01-26 07:53] LABS: Abs Immature Grans 0.01 10^3/uL (0.0-0.06); Absolute Basophil Count 0.05 10^3/uL (0.0-0.2); Absolute Eosinophil Count 0.07 10^3/uL (0.0-0.7); Absolute Lymphocyte Count 1.86 10^3/uL (1.2-3.4); Absolute Monocyte Count 0.56 10^3/uL (0.1-0.8); Absolute Neutrophil Count 4.14 10^3/uL (1.2-6.7); Basophils % 0.7 %; HCT 40.3 % (36.0-46.0); HGB 13.5 g/dL (11.2-15.7); Immature Grans % 0.1 %; Lymphocytes % 27.8 %; MCH 31.3 pg (27.0-33.0); MCHC 33.5 % (32.0-36.0); MCV 94 fL (80-95); MPV 10.5 fL (8.0-11.0); Monocytes % 8.4 %; Platelet Count 226 10^3/uL (130-400); RBC 4.31 10^6/uL (3.93-5.22); RDW 11.8 % (11.7-14.6); RDW-SD 40.8 fL; WBC 6.69 10^3/uL (4.4-10.8)
[2025-01-26 07:58] LABS: Bilirubin Negative (Negative); Blood Large (Negative); Clarity Clear (Clear); Glucose Negative (Negative); Ketones Negative (Negative); Leukocyte Esterase Negative (Negative); Nitrite Negative (Negative); Urobilinogen 0.2 mg/dL (Up to 0.2)
[2025-01-26 08:06] LABS: Bacteria Rare HPF (Negative); C & S Indicated? No; Casts Negative LPF (Negative); Crystals Negative HPF (Negative); Epithelial Cells Moderate HPF (Negative); Mucus Moderate (Negative); WBC 0-2 HPF (0-5)
[2025-01-26] MEDS: Normal Saline 1,000 ML 1000 ML IV (08:07)
[2025-01-26] MEDS: Normal Saline - Diluent 50 ML VIAL IJ (08:11)
[2025-01-26 08:12] LABS: ALT 14 U/L (14-59); AST 13 U/L (15-37); Alkaline Phosphatase 56 U/L (46-116); Anion Gap 8.5 mmol/L (3-11); BUN 12 mg/dL (7-18); CO2 26.5 mmol/L (21.0-32.0); CREATININE 0.7 mg/dL (0.55-1.02); Calcium 8.8 mg/dL (8.5-10.1); Chloride 107 mmol/L (98-107); Estimated GFR 121.49 (mL/min/1.73m2); Glucose 92 mg/dL (74-106); Potassium 3.9 mmol/L (3.5-5.1); Sodium 142 mmol/L (136-145); Total Protein 7.4 g/dL (6.4-8.2)
[2025-01-26] MEDS: Omnipaque 350 MG/ML 100 ML BTL IJ (08:12)
--- NOTE | 2025-01-26 08:15 | DI.US_ITS ---
Exam(s) US PELVIS TRANSVAGINAL EXAM: US PELVIS TRANSVAGINAL CLINICAL HISTORY: left flank pain and ovarian cyst, eval for torsion TECHNIQUE: Transabdominal and transvaginal imaging was performed using standard protocol. COMPARISON: US US PELVIS TRANSVAGINAL from 01/10/2025 FINDINGS: Bladder is unremarkable. UTERUS: Retroflexed.. 9.4 x 4.3 x 4.9 cm Endometrium: 4 mm Myometrium: Unremarkable. Cervix: Nabothian cyst. OVARIES: Right: Cyst or mass: None. 2.9 x 2.3 x 3.2 Left: Cyst or mass: None. 3.6 x 1.6 x 2.5 DOPPLER: Color: Symmetric and uniform flow to both ovaries. No hyperemia. CUL-DE-SAC: Free fluid: Trace IMPRESSION: 1. Normal-appearing uterus with endometrial stripe within normal limits. 2. Unremarkable bilateral ovaries. No evidence of torsion. DATA REPOSITORY:
[2025-01-26 10:26] VITALS: BP 105/42; PULSE 81; RESP 20; TEMP 36.9; O2SAT 98
[2025-01-26 10:42] VITALS: BP 105/42; PULSE 81; RESP 20; TEMP 36.9; O2SAT 98
== END 2025-01-26 10:45 | disposition home or self-care (01) ==
PROVIDERS: Emergency Provider Student in an Organized Health Care Education/Training Program; PCP Nurse Practitioner
DX: R10.32 Left lower quadrant pain (principal); N88.8 Other specified noninflammatory disorders of cervix uteri; Z87.891 Personal history of nicotine dependence
CPT/HCPCS: 80053; 81025; 96374; 96375; 99285; 74177; 76830; 76856; 81003; 81015; 83605; 85025; J0131; J1885; J2405; J3490

== ENCOUNTER 2025-02-16 08:58 | Outpatient (REF) | payer OTHER, SELFPAY ==
[2025-02-17 11:56] LABS: Chlamydia Result Negative (Negative); GC Result Negative (Negative)
== END 2025-02-16 08:59 | disposition home or self-care (01) ==
LOC: LBN 08:58
PROVIDERS: PCP Nurse Practitioner; Visit Provider Nurse Practitioner Women's Health
DX: Z11.3 Encounter for screening for infections with a predominantly sexual mode of transmission (principal)
CPT/HCPCS: 87491; 87591